=== PATIENT | male | born 1945 | race Caucasian/White ===

== ENCOUNTER 2019-02-23 11:59 | Outpatient (REF) | payer MEDICARE, BC, SELFPAY ==
[2019-02-23 13:14] LABS: ALT 39 U/L (12-78); AST 30 U/L (15-37); Albumin 3.6 g/dL (3.4-5.0); Alkaline Phosphatase 100 U/L (46-116); Anion Gap 8.9 mmol/L (3-11); BUN 17 mg/dL (7-18); Bilirubin, Total 1.2 mg/dL (0.2-1.0); CO2 29.1 mmol/L (21.0-32.0); Calcium 9.4 mg/dL (8.5-10.1); Chloride 102 mmol/L (98-107); Cholesterol 163 mg/dL (50-200); Glucose 76 mg/dL (70-100); HDL Cholesterol 46 mg/dL (40-60); LDL CHOLESTEROL 99 mg/dL (<100); Potassium 3.6 mmol/L (3.5-5.1); Sodium 140 mmol/L (136-145); Total Protein 6.8 g/dL (6.4-8.2); Triglyceride 102 mg/dL (30-150)
== END 2019-02-23 12:19 ==
LOC: NCHCN 11:59
PROVIDERS: Visit Provider Internal Medicine
DX: I10 Essential (primary) hypertension (principal); I35.1 Nonrheumatic aortic (valve) insufficiency; L98.9 Disorder of the skin and subcutaneous tissue, unspecified; J30.9 Allergic rhinitis, unspecified
CPT/HCPCS: 80053; 80061; 83721

== ENCOUNTER 2019-07-14 07:47 | Emergency (ER) | payer MEDICARE, BC, SELFPAY ==
[2019-07-14 07:51] VITALS: BP 166/74; PULSE 72; RESP 16; TEMP 36.4; O2SAT 100
--- NOTE | 2019-07-14 08:09 | DI.RAD_ITS ---
EXAM: XR CHEST 2V PA LATERAL INDICATION: pain s/p fall. COMPARISON: CHEST 2 VIEWS PA,LAT from 02/22/2018 TECHNIQUE: 2D digital imaging was performed. FINDINGS: The heart size is normal. The aorta is tortuous. There is again mild elevation of the right diaphra gm. No superimposed infiltrate, effusion or pulmonary edema is seen. No pneumothorax or gross rib f racture is identified. No thoracic compression fractures are seen. IMPRESSION: No acute abnormality.
[2019-07-14] MEDS: Acetaminophen 500 MG TAB 1000 MG PO (08:15)
--- NOTE | 2019-07-14 08:19 | W.ED.GENAD ---
Discharge Plan Disposition Patient Disposition: HOME Condition: Stable Discharge Details Chief Complaint: Trauma Clinical Impression: Fall, Blunt head trauma, Cervical strain, Contusion of rib Primary Care Provider: Luigi Schultz ED Provider: Kain Rodríguez Home Meds and New Rx's Prescriptions: Continued amlodipine [Norvasc] 2.5 MG tablet 5 mg PO DAILY RF: 0 losartan-hydrochlorothiazide [Hyzaar] 1 EACH tablet 1 tab-cap PO DAILY RF: 0 Discharge Instructions Instructions: Cervical Strain (ED) Additional Instructions: if you still have pain in a week see your primary care provider you can take 1000mg tylenol and 600mg ibuprofen every 6 hours for pain as needed if you have severe worsening pain or new pain such as abdominal pain or difficulty breathing return to the emergency department Medical Decision Making 74 yo male with hx of htn, denies blood thinners comes in after a fall. He states last night he was walking on his ramp leading to his barn. It was dark and he fell off about 6 feet. He denies loc and has not had vomit but has posterior head pain, right lateral mid neck pain and right lateral chest pain in mid axillary line over the 4-5 ribs. No abd pain and no tenderness, no pain in the extremities with full rom. No midline c spine pain, tspine or lspine pain. Suspect concussion but given mechanisma dn locations of pain will obtain ct head/cspine and cxr and monitor Pt's imaging negative, no midline neck pain and full rom so do not feel mri indicated. Will d/c home, return precautions given Differential Diagnosis Differential Diagnosis: tbi, concussion, fracture Imaging Data Radiologic Study: Attestation: I personally reviewed and interpreted this imaging study as follows: Imaging: CT Scan Radiologist's impression: no acute findings ct head/c spine Radiologic Study #2: Attestation: I personally reviewed and interpreted this imaging study as follows: Imaging: X-Ray Radiologist's impression: no acute findings HPI General Mode of arrival: ambulatory. Date/Time Provider Initiated Documentation: 07/14/19 08:02. Limitations to Documentation: no limitations. Information obtained by: patient. History of Present Illness 74 year old M presents to the emergency department with the chief complaint of headache, described as moderate, Quality is described as aching, and is localized to the head. Patient reports no radiation. Patient started experiencing this hour(s) (12) and it has been constant. No relieving factors improve symptom(s), No exacerbating factors reported . Patient did receive the following treatments prior to arrival, none Related Data Home Medications Medication Instructions Recorded Confirmed amlodipine [Norvasc] 5 mg PO DAILY tab-cap 03/07/13 07/14/19 losartan-hydrochlorothiazide 1 tab-cap PO DAILY tab-cap 03/07/13 07/14/19 [Hyzaar] Allergies Allergy/AdvReac Type Severity Reaction Status Date / Time grass Allergy Intermediate Uncoded 02/22/18 01:05 mold Allergy Unknown Uncoded 02/22/18 01:05 General Stated Complaint: Trauma CINTIA: 3 Review of Systems Review of Systems ROS Unobtainable: All systems reviewed & are unremarkable except as noted in HPI and below Constitutional Constitutional: Denies chills, Denies fever(s) and Denies weakness Cardiovascular Cardiovascular: Denies chest pain and Denies dyspnea Respiratory Respiratory: Denies dyspnea Gastrointestinal Gastrointestinal: Denies abdominal pain, Denies nausea and Denies vomiting Musculoskeletal Musculoskeletal: Denies joint swelling Neurologic Neurologic: Denies weakness [facility] Social History Smoking/Tobacco Use Status: Former Tobacco Use Alcohol Intake: current Alcohol type: wine Drug use: Never Substance use type: does not use Do you feel safe at home: Yes Do you feel safe in your relationship?: Yes Exam Const General: no acute distress Orientation: alert HENWA Head: normal to inspection Ears: external ears normal General nose exam: external nose normal Mouth: moist mucous membranes Eyes General: appearance normal, both eyes and all related structures Neck Neck: normal visual inspection Chest Chest: no crepitus Resp Effort & Inspection: normal respiratory effort and able to speak in complete sentences Cardio Rate: regular rate Skin General skin exam: no rashes or lesions noted Neuro General: alert and oriented x3 Extrem General: normal to inspection Psych Mental Status: mental status grossly normal Course Vital Signs Vital signs: Vital Signs Temperature 36.4 C L 07/14/19 07:51 Pulse 72 07/14/19 07:51 Respiratory Rate 16 07/14/19 07:51 Blood Pressure 166/74 H 07/14/19 07:51 Pulse Oximetry 100 07/14/19 07:51 Temperature 36.4 C L 07/14/19 07:51 Temperature Source Temporal Artery Scan 07/14/19 07:51 Pulse 72 07/14/19 07:51 Respiratory Rate 16 10/18/19 07:51 Respiratory Effort Non-Labored 07/14/19 07:51 Blood Pressure 166/74 H 07/14/19 07:51 Blood Pressure Position Supine 07/14/19 07:51 Pulse Oximetry 100 07/14/19 07:51 Oxygen Delivery Method Room Air 07/14/19 07:51 Oxygen Flow Rate 0 07/14/19 07:51 Pain Level 5 07/14/19 07:51 Comment 07/14/19 07:51
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
--- NOTE | 2019-07-14 09:10 | DI.VRAD_ITS ---
PROCEDURE INFORMATION: Exam: XR Chest, 2 Views Exam date and time: 07/14/2019 8:25 AM Clinical history: 74 years old, male; Other: Pain S/P fall TECHNIQUE: Imaging protocol: XR of the chest Views: 2 views. COMPARISON: CR CHEST 2 VIEWS PA,LAT 02/22/2018 1:18 AM FINDINGS: There is persistent eventration of the right hemidiaphragm. No airspace consolidation, pleural effusion or pneumothorax. Unremarkable cardiomediastinal silhouette. IMPRESSION: No acute findings. Dictated and Authenticated by: Jaron Carreon MD. Ordering:HARLEY Finnegan MD
--- NOTE | 2019-07-14 09:10 | DI.VRAD_ITS ---
PROCEDURE INFORMATION: Exam: CT Head Without Contrast Exam date and time: 07/14/2019 8:25 AM Clinical history: 74 years old, male; Pain and injury or trauma; Initial encounter; Blunt trauma (contusions or hematomas); Consciousness not specified; Headache not specified; Neck pain; Injury details: Fall/hit back of head TECHNIQUE: Imaging protocol: Computed tomography of the head without contrast. Radiation optimization: All CT scans at this facility use at least one of these dose optimization techniques: automated exposure control; mA and/or kV adjustment per patient size (includes targeted exams where dose is matched to clinical indication); or iterative reconstruction. COMPARISON: No relevant prior studies available. FINDINGS: There are periventricular white matter lucencies compatible with chronic microvascular ischemic disease. There is no intracranial hemorrhage. No mass effect or midline shift. The ventricles and sulci are prominent compatible with age-related involutional changes. The calvarium is intact. There is bifrontal, bilateral ethmoid and left maxillary sinusitis. No mastoid effusion. IMPRESSION: No acute intracranial findings. PROCEDURE INFORMATION: Exam: CT Cervical Spine Without Contrast Exam date and time: 07/14/2019 8:25 AM Clinical history: 74 years old, male; Pain and injury or trauma; Initial encounter; Blunt trauma (contusions or hematomas); Consciousness not specified; Headache not specified; Neck pain; Injury details: Fall/hit back of head TECHNIQUE: Imaging protocol: Computed tomography images of the cervical spine without contrast. Radiation optimization: All CT scans at this facility use at least one of these dose optimization techniques: automated exposure control; mA and/or kV adjustment per patient size (includes targeted exams where dose is matched to clinical indication); or iterative reconstruction. COMPARISON: No relevant prior studies available. FINDINGS: Normal alignment. No acute fracture or subluxation. There is multilevel degenerative disease with bridging anterior osteophytes and facet arthritis bilaterally. Normal prevertebral soft tissues. IMPRESSION: No fracture. Cervical spondylosis as above. Dictated and Authenticated by: Jaron Carreon MD. Ordering:HARLEY Finnegan MD
== END 2019-07-14 09:26 | disposition home or self-care (01) ==
LOC: ER 08:52
PROVIDERS: Emergency Provider Emergency Medicine; PCP Internal Medicine
DX: S09.90XA Unspecified injury of head, initial encounter (principal); S20.211A Contusion of right front wall of thorax, initial encounter; S13.4XXA Sprain of ligaments of cervical spine, initial encounter; W01.0XXA Fall on same level from slipping, tripping and stumbling without subsequent striking against object, initial encounter; I10 Essential (primary) hypertension; Z79.01 Long term (current) use of anticoagulants
CPT/HCPCS: 99285; 70450; 71046; 72125; 99284

== ENCOUNTER 2019-12-05 17:02 | Emergency (ER) | payer MEDICARE, BC, SELFPAY ==
[2019-12-05 17:12] VITALS: BP 158/70; PULSE 71; RESP 16; TEMP 36.6; O2SAT 97
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
--- NOTE | 2019-12-05 17:23 | ED.GENADUL_ITS ---
Discharge Plan Disposition Patient Disposition: [facility] Condition: Stable Discharge Details Chief Complaint: Trauma Clinical Impression: Cervical spine fracture, Trauma Primary Care Provider: Luigi Schultz ED Provider: Marciano Olivo Home Meds and New Rx's Prescriptions: No Action amlodipine [Norvasc] 2.5 MG tablet 5 mg PO DAILY RF: 0 losartan-hydrochlorothiazide [Hyzaar] 1 EACH tablet 1 tab-cap PO DAILY RF: 0 Medical Decision Making This is a 74-year-old male with past medical history of tobacco abuse in the past, who presents today after being hit by a garage door. Patient states that he was working in his garage when his tractor turned on and started moving backwards, knocked garage door off of the hinges, which then subsequently came down and hit him in the face, chest and right elbow. He did not lose consciousness but he was notably dizzy. He was able to get up but did have some mild difficulty walking. He came to the ER for further evaluation. Right now he does admit to minimal anterior chest pain where he was struck, as well as mild facial pain, head pain and neck pain. His elbow is also achy. His tetanus is up-to-date. He denies any associated numbness tingling or weakness. He denies any vision changes. No other complaints at this time. Physical exam demonstrates mild swelling over the right elbow, he is right-hand dominant. Minimal lateral epicondyle tenderness. He also has minimal midline cervical spine tenderness over C2, no other significant abnormality though. Chest wall is minimally tender, no neurologic deficits. This time due to the patient's age, the mechanism I do feel that CT scan of the head neck, chest x-ray right elbow x-ray is indicated. The patient is requesting to hold off on any sutures, the laceration is superficial, will start with glue after cleaning. Tetanus is up-to-date. With no weakness with raising his arms, with no numbness or tingling for his upper extremities, I doubt central cord syndrome. [address] scan results have returned, and per virtual radiology there is concerning evidence of a bilateral acute appearing transversely oriented nondisplaced fracture involving the superior articular processes of C7, it is nondisplaced at this time there is also widening of the C6-C7 disc space with discontinuity of the peripheral syndesmophyte, with evidence of local paraspinous edema at that level, concerning for notable extension injury. There is also evidence of a notable intramuscular hematoma total volume with 35 mL's which appears to be new as well. Repeat neurologic exam continues to show no deficits. With these findings the patient was continued to be maintained in c-collar precautions. He was placed in an Kirwin collar for comfort. He is still requesting nothing for pain. We did contact [facility] and discussed the case with the trauma attending Dr. Sampson, he agrees with the need for transfer. He recommends ED to ED transfer where the patient will be seen and evaluated in the ED. He also does admit recommend getting CT angios the neck, which we will get immediately while waiting for transfer. Patient continues to refuse anything for pain. We will facilitate transfer to [facility]. Also of note the patient's left hand superficial laceration was cleaned, irrigated, no evidence of deep tissue involvement. The area was then Steri-Stripped and Dermabond did. Excellent wound edge reapproximation was achieved. 7:47 PM CTA has been completed, pending results, patient will be transferred to [facility] for further management. I have extensively reviewed the treatment plan with the patient. I have addressed all patient concerns at this time. I have also discussed the plan with the admitting physician and they agree with the current assessment and plan and have agreed to assume responsibility for the patient. All parties demonstrate verbal understanding and agreement with our assessment and plan at this time. At time of transfer the patient was reassessed and continued to demonstrate current medical stability. No signs of acute respiratory distress requiring intubation, hemodynamic instability requiring pressor support, or rapidly declining mental status. The patient is stable for transport. FINDINGS: Bones/joints: There is a 3 mm calcification in the central joint space between the radiocapitellar joint and ulnotrochlear joint, best seen on the AP view, suspicious for a small intra- articular loose body. Moderate olecranon spurring at the triceps attachment. No fractures. No blastic or lytic lesions. No periostitis or osteolysis. Radiocapitellar alignment and ulnotrochlear alignment are normal. Proximal radioulnar alignment is normal. No gross joint effusion. Soft tissues: 5 mm well corticated rounded calcification at the lateral epicondyle is felt to be consistent with an incidental chronic posttraumatic or heterotopic ossification. No gross soft tissue abnormalities. No radiopaque foreign bodies FINDINGS: Lungs: Low lung volumes. Pulmonary vasculature grossly normal. No infiltrates. No areas of suspected pulmonary contusion. Pleural space: No pleural effusion. No pneumothorax. Heart/Mediastinum: Heart size normal. No tracheal/mediastinal shift. Diaphragm: Mild chronic elevation of the right hemidiaphragm unchanged. Vasculature: Moderate aortic ectasia. Bones/joints: No acute osseous abnormalities are identified. Osteopenia. IMPRESSION: No acute thoracic process. No significant change from 07/14/2019. Thank you for allowing us to participate in the care of your patient. Dictated and Authenticated by: Yusuf Meredith MD 12/05/2019 6:16 PM Eastern Time ([place] & [place]) FINDINGS: Brain: Mild generalized atrophy with minimal periventricular white matter ischemic changes consistent with the patient's advanced age. No extra-axial fluid collections. No evidence of acute intracranial hemorrhage. Rizvi-white differentiation is well maintained. No evidence of acute or subacute intracranial ischemia/infarct. No intracranial mass lesions. Midline shift: No midline shift or herniation. Ventricles: Ventricles normal. Bones/joints: The calvarium and visualized facial bones are intact. Chronic healed fracture of the right zygomatic arch unchanged. Sinuses: Mucosal thickening in the frontal sinuses, anterior ethmoid air cells, and left maxillary sinus, with fluid levels in the left maxillary sinus and right frontal sinus, suggesting acute on chronic sinus inflammatory disease. No sinus fractures are identified.. Mastoid air cells: Visualized mastoid air cells are clear. Orbits: Orbital contents demonstrate no evidence of acute abnormality. Soft tissues: Left frontal scalp soft tissue swelling, with no underlying fracture or foreign body. Vasculature: Mild atherosclerotic calcific plaque is identified in the visualized proximal intracranial arterial segments.No asymmetric vascular hyperdensities suggestive of thrombosis are identified. Other findings: The IACs are grossly normal. The sella is grossly normal. IMPRESSION: 1. No acute intracranial process. No significant change from 07/14/2019. 2. Mild generalized atrophy consistent with age. 3. Evidence of acute on chronic sinus inflammatory disease. 4. Left frontal scalp soft tissue swelling, with no underlying fracture or foreign body. 5. Old healed right zygomatic arch fracture unchanged in appearance. FINDINGS: Vertebrae: Craniocervical alignment is normal. The odontoid is intact. Cervical vertebral alignment is normal. Transversely oriented nondisplaced acute fractures are noted extending through the ankylosed facet joint distributions bilaterally at the C6-C7 level, best appreciated on the sagittal reconstructions, primarily involving the superior articular processes of C7. No vertebral body fracture components are identified. No evidence of associated epidural hematoma. No blastic or lytic lesions. Discs/Spinal canal/Neural foramina: The occipital condyles are intact. Moderate degenerative sclerosis and spurring at the atlantodens interval. No jumped or perched facets. There is extensive facet ankylosis bilaterally from C4 to T1. Moderate bilateral degenerative facet hypertrophy at C2-C3 and C3-C4. There are associated anterior syndesmophytes from C4 through C6 which appear intact. The findings could relate to underlying chronic ankylosing spondylitis, clinical correlation recommended. There is mild widening of the C6-C7 disc space with discontinuity of the anterior syndesmophyte and lateral syndesmophyte margins, which may be acutely fractured. 4 mm left paracentral soft disc protrusion at C3-C4. Moderate central canal stenosis C3-C4 with AP thecal sac dimension of 7.1 mm. Moderate central canal stenosis at C4-C5 and C5-C6 with AP thecal sac dimension of 7.6 mm and 7.1 mm. Mild central canal stenosis C6-C7, 8 mm. Mild left foraminal stenosis C5-C6 and T1-T2. Mild right foraminal stenosis T1-T2 and C3-C4. Other bones/joints: Osteopenia. Soft tissues: Asymmetric enlargement of the right-sided scalene musculature suggesting an element of muscular tear and intramuscular hematoma development. This is best appreciat ed on axial series 5, image 324 were the scaling musculature measures about 4.4 x 2.8 cm (previously 2.8 x 1.2 cm on 07/14/2019) by about 5.4 cm in length. No evidence of associated airway compromise. Estimated volume 35 mL. Thyroid: 8 mm low-density nodule in the right thyroid gland. This is unchanged. No further imaging evaluation is required. Lungs: Visualized pulmonary apices are clear. IMPRESSION: 1. There are bilateral acute appearing transversely oriented nondisplaced fractures involving the superior articular processes of C7 at the C6-C7 level. These are nondisplaced. 2. There is mild widening of the adjacent C6-C7 disc space with discontinuity of the peripheral syndesmophytes at the margin of the disc, concerning for extension of the injury through the C6-C7 disc space, with a mild degree of local paraspinous edema at this level. 3. There is extensive ankylosis in the facet joints of the cervical spine as detailed above, with numerous bridging syndesmophytes between the disc spaces in the mid cervical region, suspicious for underlying ankylosing spondylitis. 4. Heterogeneous enlargement of the right-sided scalene musculature which is new since 07/14/2019 and is felt to represent acute traumatic muscular injury with elements of intramuscular hematoma, estimated volume 35 mL. No evidence of associated airway compromise. 5. Osteopenia. 6. 4 mm left paracentral soft disc protrusion at C3-C4 with moderate central canal stenosis at this level. 7. Lesser degrees of central canal stenosis and multiple levels of bilateral mild foraminal stenosis at other levels detailed above. 8. THIS REPORT CONTAINS FINDINGS THAT MAY BE CRITICAL TO PATIENT CARE. The findings were verbally communicated via telephone conference with MARCIANO OLIVO at 6:37 PM EDT on 12/05/2019. The findings were acknowledged and understood. Thank you for allowing us to participate in the care of your patient. Dictated and Authenticated by: Yusuf Meredith MD 12/05/2019 6:38 PM Eastern Time ([place] & [place]) HPI General Date/Time Provider Initiated Documentation: 12/05/19 17:07 . HPI Narrative: This is a 74-year-old male with past medical history of tobacco abuse in the past, who presents today after being hit by a garage door. Patient states that he was working in his garage when his tractor turned on and started moving backwards, knocked garage door off of the hinges, which then subsequently came down and hit him in the face, chest and right elbow. He did not lose consciousness but he was notably dizzy. He was able to get up but did have some mild difficulty walking. He came to the ER for further evaluation. Right now he does admit to minimal anterior chest pain where he was struck, as well as mild facial pain, head pain and neck pain. His elbow is also achy. His tetanus is up-to-date. He denies any associated numbness tingling or weakness. He d enies any vision changes. No other complaints at this time. Related Data Home Medications Medication Instructions Recorded Confirmed amlodipine [Norvasc] 5 mg PO DAILY tab-cap 03/07/13 07/14/19 losartan-hydrochlorothiazide 1 tab-cap PO DAILY tab-cap 03/07/13 07/14/19 [Hyzaar] Allergies Allergy/AdvReac Type Severity Reaction Status Date / Time grass Allergy Intermediate Uncoded 02/22/18 01:05 mold Allergy Unknown Uncoded 02/22/18 01:05 General Stated Complaint: Trauma CINTIA: 3 Review of Systems All systems reviewed & are unremarkable except as noted in HPI and below PFSH Social History Smoking/Tobacco Use Status: Former Tobacco Use Alcohol Intake: current Alcohol type: wine Drug use: Never Substance use type: does not use Do you feel safe at home: Yes Do you feel safe in your relationship?: Yes Exam Narrative Exam Narrative: 1.Const: Well-nourished, Well-developed, appearing stated age 2.Eyes: PERRL, no conjunctival injection, and symmetrical lids. 3.ENT: Atraumatic external nose and ears. Moist MM. Neck: Symmetric, trachea midline, No thyromegaly. There is no evidence of raccoon eyes, meza sign, CSF rhinorrhea, mastoid tenderness, cranial crepitus, hemotympanum, exophthalmos, or hyphema. Patient demonstrates intact dentition with no signs of tooth avulsion or fracture, no signs of jaw deformity, no evidence of a LeFort's fracture, with an intact palate, nose and orbital region. There is no evidence of a nasal septal hematoma. No proptosis. Jaw closes symmetrically. Airway is clear. Mild contusion to the right frontal forehead, no evidence of deficit. 4.CVS: Regular rate and rhythm, Normal s1 and s2. No murmurs, carotid bruits, rubs, or gallops. Radial pulses 2+ bilaterally and symmetric. Dorsalis pedis pulses 2+ bilaterally and symmetric. 2+ capillary refill. No evidence of distant heart sounds. No extremity edema. No evidence of gross hemorrhage. 5.RESP: Airway clear, no obstructions. No abrasions or ecchymosis. Chest movement symmetric with respirations. No chest wall tenderness. Trachea midline. No crepitus. No step offs. No paradoxical movements. Lungs are clear to auscultation bilaterally. No rales, rhonchi, wheezing or stridor. Breath sound symmetric. No Sucking chest wounds. No clinical evidence of significant chest trauma. 6.GI: Soft, nondistended, nontender. Bowel tones normoactive. No masses or organomegaly. No ecchymosis or abrasions. No periumbilical ecchymosis or seatbelt sign. No flank or CVA tenderness. No clinical signs of significant trauma. No clinical evidence of significant abdominal trauma. 7.MSK: No gross deformities or discolorations or lesions. Tolerates full range of motion of extremities without tenderness. All compartments of upper and lower extremities are soft with no significant tenderness. Patient does have mild swelling over the right elbow. Minimal tenderness on the lateral epicondyle. Vascular exam demonstrates brisk capillary refill and intact pulses in all extremities. Pelvic exam demonstrates a stable pelvis, nontender to lateral compression and palpation of symphysis pubis.. No clinical evidence of significant musculoskeletal trauma. No midline tenderness to palpation over the TLS spine. He does demonstrate mild midline cervical spine tenderness at C2. Normal ROM in flexion, extension, side bend, and rotation for the remainder of the spine. Patient has +5 out of 5 strength in the lower extremities in dorsiflexion and plantarflexion, knee flexion and extension, hip flexion and extension. Normal strength for dorsiflexion and plantar flexion of the great toe bilaterally. There is +2 over 2 dorsalis pedis pulses bilaterally. There is normal sensation to the skin with light touch at the foot, knee, and hip. Normal saddle sensation. Good sensation over the deep sural nerve area bilaterally. Rectal exam deferred. Reflexes are +2 over 4 in the patellar reflex bilaterally. +5 out of 5 strength in the medial, ulnar, radial nerve distribution bilaterally in the hands as well as intact light touch sensation to these dermatomes on the hands 8.Skin: Warm, Dry. No rashes or lesions. Patient does demonstrate a very small minimal superficial laceration over the middle finger on the left nondominant hand. No evidence of deep involvement or involvement of the tendons or ligaments. Normal sensation throughout. 9.Neuro: clearing supervisor II-XII grossly intact. Sensation grossly intact, no focal neurologic deficits. All 6 cardinal planes of vision are fully intact. No evidence of rotatory or vertical nystagmus. The patient demonstrated a normal [id number], good dexterity. There was no evidence of dysdiadochokinesia. Patient was able to ambulate without difficulty. There was no wide-based gait. Romberg testing was normal. [id number] testing was normal. Sensation was intact bilaterally as well as muscle strength bilaterally for all extremities. Patient was able to verbalize butter cup with no slurring, or miss pronunciation. 10.Psych: (AAO) x3. Appropriate mood and affect Course Vital Signs Vital signs: Vital Signs Temperature 36.6 C 12/05/19 17:12 Pulse 71 12/05/19 17:12 Respiratory Rate 16 12/05/19 17:12 Blood Pressure 158/70 H 12/05/19 17:12 Pulse Oximetry 97 12/05/19 17:12 Temperature 36.6 C 12/05/19 17:12 Temperature Source Tympanic 12/05/19 17:12 Pulse 71 12/05/19 17:12 Respiratory Rate 16 12/05/19 17:12 Respiratory Effort Non-Labored 12/05/19 17:17 Blood Pressure 158/70 H 12/05/19 17:12 Blood Pressure Position Sitting 12/05/19 17:12 Pulse Oximetry 97 12/05/19 17:12 Oxygen Delivery Method Room Air 12/05/19 17:12 Oxygen Flow Rate 0 12/05/19 17:12
[2019-12-05 17:36] VITALS: BP 151/71; PULSE 69
--- NOTE | 2019-12-05 18:16 | DI.VRAD_ITS ---
PROCEDURE INFORMATION: Exam: XR Chest, 2 Views Exam date and time: 12/05/2019 5:55 PM Age: 74 years old Clinical indication: Injury or trauma; Fall; Initial encounter; Blunt trauma (contusions or hematomas) TECHNIQUE: Imaging protocol: XR of the chest Views: 2 views. COMPARISON: CR XR CHEST 2V PA LATERAL 07/14/2019 8:21 AM FINDINGS: Lungs: Low lung volumes. Pulmonary vasculature grossly normal. No infiltrates. No areas of suspected pulmonary contusion. Pleural space: No pleural effusion. No pneumothorax. Heart/Mediastinum: Heart size normal. No tracheal/mediastinal shift. Diaphragm: Mild chronic elevation of the right hemidiaphragm unchanged. Vasculature: Moderate aortic ectasia. Bones/joints: No acute osseous abnormalities are identified. Osteopenia. IMPRESSION: No acute thoracic process. No significant change from 07/14/2019. Dictated and Authenticated by: Yusuf Meredith MD. Ordering:JENNIFER Tariq MD
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
--- NOTE | 2019-12-05 18:41 | DI.VRAD_ITS ---
PROCEDURE INFORMATION: Exam: XR Right Elbow Exam date and time: 12/05/2019 5:59 PM Age: 74 years old Clinical indication: Injury or trauma; Fall; Initial encounter; Blunt trauma (contusions or hematomas; Elbow; Right TECHNIQUE: Imaging protocol: XR Right elbow. Views: 3 or more views. COMPARISON: No relevant prior studies available. FINDINGS: Bones/joints: There is a 3 mm calcification in the central joint space between the radiocapitellar joint and ulnotrochlear joint, best seen on the AP view, suspicious for a small intra-articular loose body. Moderate olecranon spurring at the triceps attachment. No fractures. No blastic or lytic lesions. No periostitis or osteolysis. Radiocapitellar alignment and ulnotrochlear alignment are normal. Proximal radioulnar alignment is normal. No gross joint effusion. Soft tissues: 5 mm well corticated rounded calcification at the lateral epicondyle is felt to be consistent with an incidental chronic posttraumatic or heterotopic ossification. No gross soft tissue abnormalities. No radiopaque foreign bodies. IMPRESSION: 1. No evidence of acute fracture or dislocation. 2. 3 mm suspected intra-articular calcific body as detailed above. 3. Moderate olecranon spurring. Small chronic appearing degenerative or posttraumatic calcification at the lateral epicondyle. Dictated and Authenticated by: Yusuf Meredith MD. Ordering:JENNIFER Tariq MD
--- NOTE | 2019-12-05 18:59 | DI.CT_ITS ---
EXAM: CT BRAIN NECK CTA CLINICAL HISTORY: eval for vascular injury TECHNIQUE: Imaging Protocol: Axial computed tomography images with coronal and sagittal reformatted images were created and reviewed IV contrast during the arterial phase. COMPARISON: No exams were available for comparison FINDINGS: There is mild calcific plaque in the right common carotid bulb, no significant stenosis. The right internal carotid artery is tortuous. Near the skull base, there is dilatation of the distal right in ternal carotid artery in an area of tortuosity. Right external carotid artery is unremarkable. The left common carotid artery is unremarkable. The left internal carotid artery shows mild calcific ahsan que without significant stenosis. The external carotid artery is unremarkable on the left. Both kenneth tebral arteries show normal diameter with no evidence of dissection or occlusion. There is some enlar gement of the right scalene muscle which may represent a hematoma. There is no evidence of active ex travasation. No pneumothorax is seen at the lung apices. The intracranial vessels appear intact. No dissection or significant stenosis is seen. No aneurysm is visible. There is a normal variant of a hypoplastic right A1 segment. IMPRESSION: No evidence of vascular injury. Right scalene muscle contusion.
[2019-12-05 19:14] VITALS: O2SAT 99
[2019-12-05 19:16] VITALS: BP 176/70; PULSE 75; O2SAT 96
[2019-12-05 19:17] LABS: Abs Immature Grans 0.03 k/cumm (0.0-0.09); Absolute Basophil Count 0.03 k/cumm (0.0-0.2); Absolute Eosinophil Count 0.04 k/cumm (0.0-0.7); Absolute Lymphocyte Count 1.41 k/cumm (1.2-3.4); Absolute Monocyte Count 0.81 k/cumm (0.11-0.7); Absolute Neutrophil Count 11.91 k/cumm (1.2-6.7); Basophils % 0.2; Eosinophils % 0.3; HCT 43.7 % (40.0-50.0); HGB 14.9 g/dL (13.5-17.5); Immature Grans % 0.2 %; Lymphocytes % 9.9; Mean Corp. HGB Concentration 34.1 g/dL (32.0-36.0); Mean Corpuscular Hemoglobin 31.3 pg (27.0-33.0); Mean Corpuscular Volume 91.8 fL (80-95); Monocytes % 5.7; Neutrophils % 83.7; Platelet Count 267 x1000/uL (130-400); RBC 4.76 m/cumm (4.50-6.00); RBC Distribution Width 13.5 % (11.8-14.1); White Blood Cell Count 14.23 k/cumm (4.4-10.8)
[2019-12-05 19:20] VITALS: O2SAT 95
--- NOTE | 2019-12-05 19:28 | NUR.NOTE ---
Nursing Note: At 1900 a cervical aspen collar was applied to PT per MD request.
--- NOTE | 2019-12-05 19:29 | NUR.NOTE ---
Nursing Note: RN escorted PT to CT to maintain C-spine precautions.
--- NOTE | 2019-12-05 19:29 | NUR.NOTE ---
Addendum entered by Mike Hull 12/05/19 19:31: at 1900, PT taken to CT with RN for c-spine precautions. Original Note: Nursing Note:
[2019-12-05 19:34] LABS: ALT 31 U/L (16-63); AST 29 U/L (15-37); Albumin 3.9 g/dL (3.4-5.0); Alkaline Phosphatase 126 U/L (46-116); Anion Gap 9.4 mmol/L (3-11); BUN 14 mg/dL (7-18); Bilirubin, Total 0.7 mg/dL (0.2-1.0); CO2 29.6 mmol/L (21.0-32.0); CREATININE 0.79 mg/dL (0.70-1.30); Calcium 9.2 mg/dL (8.5-10.1); Chloride 103 mmol/L (98-107); Glucose 119 mg/dL (74-106); Potassium 3.3 mmol/L (3.5-5.1); Sodium 142 mmol/L (136-145); Total Protein 7.4 g/dL (6.4-8.2)
[2019-12-05] MEDS: Omnipaque 350 MG/ML 100 ML BTL IV (19:43)
[2019-12-05] MEDS: Normal Saline - Diluent 50 ML VIAL IV (19:44)
--- NOTE | 2019-12-05 20:02 | NUR.NOTE ---
Nursing Note: PT care report transferred to Lori (ABEL) at [facility]. All Pt care information, treatments, and information was transferred at this time.
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
== END 2019-12-05 20:10 | disposition short-term general hospital (02) ==
PROVIDERS: Emergency Provider Student in an Organized Health Care Education/Training Program; PCP Internal Medicine
DX: S12.691A Other nondisplaced fracture of seventh cervical vertebra, initial encounter for closed fracture (principal); S61.412A Laceration without foreign body of left hand, initial encounter; M25.521 Pain in right elbow; S00.83XA Contusion of other part of head, initial encounter; R07.81 Pleurodynia; R26.2 Difficulty in walking, not elsewhere classified; W30.9XXA Contact with unspecified agricultural machinery, initial encounter; W20.8XXA Other cause of strike by thrown, projected or falling object, initial encounter
CPT/HCPCS: 12001; 36415; 70496; 70498; 80053; 99285; L0172; 70450; 71046; 72125; 73080; 85025; J3490

== ENCOUNTER 2019-12-26 03:34 | Outpatient (CLI) | payer MEDICARE, BC, SELFPAY ==
--- NOTE | 2019-12-26 | DI.RAD_ITS ---
EXAM: XR CERVICAL SP PORTILLO TRAUMA 2-3V CLINICAL HISTORY: CLOSED DISPLACED FX SEVENTH CERVICAL VERTEBRA,S12.600A,S/P C6-7 ACDF FOR FX TECHNIQUE: 2D digital imaging was performed. COMPARISON: CT HEAD CERVICAL SPINE WO from 12/05/2019 FINDINGS: The patient is now status post anterior fusion C6-7 with a disc spacer in place. The alignment appe ars anatomic. There is artifact related to the neck immobilizer. The fracture seen on CT are not vi sible by plain film. No new abnormalities are seen. IMPRESSION: Status post anterior fusion at C6-7. Normal alignment.
== END 2019-12-26 03:54 ==
PROVIDERS: PCP Internal Medicine; Visit Provider Neurological Surgery
DX: Z98.1 Arthrodesis status (principal); S12.691D Other nondisplaced fracture of seventh cervical vertebra, subsequent encounter for fracture with routine healing
CPT/HCPCS: 72040

== ENCOUNTER 2020-02-16 02:01 | Outpatient (CLI) | payer MEDICARE, BC, SELFPAY ==
--- NOTE | 2020-02-16 | DI.RAD_ITS ---
EXAM: XR CERVICAL SP PORTILLO TRAUMA 2-3V CLINICAL HISTORY: CLOSED DISPLACED FRACTURE 7TH CERVICAL VERTEBRA, S/P C6-7 ACDF. TECHNIQUE: 2D digital imaging was performed. COMPARISON: CT CT HEAD CERVICAL SPINE WO from 12/05/[address] BRAIN NECK CTA from 12/05/2019 CR XR CERVICAL SP PORTILLO TRAUMA 2-3V from 12/26/2019 FINDINGS: There are surgical changes of an anterior cervical disc fusion at C6-C7 which appear stable. The odo ntoid is intact. The lateral masses are well aligned. There is artifact from the patient's immobili zer limiting evaluation of the examination. No new abnormality is identified. The C7 fracture has b est been appreciated on the CT scan. IMPRESSION: 1. Status post C6-C7 ACDF. 2. No acute abnormality. DATA REPOSITORY: RADIATION DOSE DELIVERED:
== END 2020-02-16 02:21 ==
PROVIDERS: PCP Internal Medicine; Visit Provider Neurological Surgery
DX: S12.691D Other nondisplaced fracture of seventh cervical vertebra, subsequent encounter for fracture with routine healing (principal); Z98.1 Arthrodesis status
CPT/HCPCS: 72040

== ENCOUNTER 2020-04-07 19:02 | Emergency (ER) | payer MEDICARE, BC, SELFPAY ==
[2020-04-07 19:13] VITALS: BP 179/90; PULSE 77; RESP 18; TEMP 37; O2SAT 97
--- NOTE | 2020-04-07 19:30 | DI.CT_ITS ---
EXAM: CT CERVICAL SPINE WO CLINICAL HISTORY: h/o c6-7 fx/fusion; s/p muscle strain. TECHNIQUE: Imaging Protocol: Axial computed tomography images with coronal and sagittal reformatted images were created and reviewed COMPARISON: CT CT BRAIN NECK CTA from 12/05/2019 FINDINGS: The odontoid is intact. The lateral masses are well aligned. No acute fracture or subluxation in th e cervical spine is seen. There is anterior cervical disc fusion at C6-C7. Moderately severe degene rative changes are present throughout the cervical spine. The prevertebral soft tissues are unremark able. The lung apices are clear. IMPRESSION: No acute fractures or subluxations of the cervical spine. RADIATION DOSE DELIVERED: Total DLP Total DLP DATA REPOSITORY: All CT scans at this facility are submitted to the National Radiology Data Registry (NRDR) Dose Index Registry (DIR) with the [employer] ([employer]). RADIATION OPTIMIZATION: All CT scans at this facility use at least one of these dose optimization te chniques: automated exposure control; mA and/or kV adjustment per patient size (includes targeted exa ms where dose is matched to clinical indication); or iterative reconstruction.
--- NOTE | 2020-04-07 19:39 | W.ED.GENAD ---
Discharge Plan Disposition Patient Disposition: HOME Condition: Good Discharge Details Chief Complaint: Nk/Back Pain Clinical Impression: Neck pain, History of fusion of cervical spine, Thyroid nodule Primary Care Provider: Luigi Schultz ED Provider: Marciano Aldrich Home Meds and New Rx's Prescriptions: Continued amlodipine [Norvasc] 2.5 MG tablet 5 mg PO DAILY RF: 0 losartan-hydrochlorothiazide [Hyzaar] 1 EACH tablet 1 tab-cap PO DAILY RF: 0 Discharge Instructions Instructions: Neck Pain (ED) Additional Instructions: At this time we are thankful to say that the radiologist sees no evidence whatsoever of acute fracture of your cervical spine. With resolution of your symptoms, and no neurologic abnormalities on exam it is notably reassuring that there is not any acute damage that has occurred. I do suspect that you have a mild muscle spasm that was initially causing your pain which is resolved at this time. Please use ice if needed, please maintain use of your neck brace as indicated by your environmental health specialist. Please contact her spine surgeons at [facility] and let them know of your visit. We will switch the radiology images down to them. If you notice any worsening of your symptoms, or any new symptoms such as vomiting, diarrhea, fever, chills, shortness of breath, chest pain, numbness, weakness, or fainting , please return immediately to the emergency department for reevaluation. Please follow up with your primary care provider as soon as possible for reassessment and reevaluation. As always, it was a pleasure participating in your medical care today. Also of note you do have the small thyroid nodule that we discussed. This does not require any emergent follow-up at all. But is something that you should be aware of for the future. Referrals: Luigi Schultz MD [Primary Care Provider] - Medical Decision Making <Xena Walker DO - Last Filed: 04/07/20 20:50> 1922 -- 75-year-old male with a history of C6-7 ACDF for his C6?SAP fracture, disruption of a LL, 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 on 12/05/2019 at [facility] presents for burning posterior neck pain after both of his arms pulled by his dog while holding a leash last night. Denies any radiation of pain or paresthesias into his upper extremities. BP hypertensive. Patient appears nontoxic. He presents in a [place] collar which he wears chronically since his injury and surgery, and only removes for showering. His neck is nontender to palpation. He has no focal deficits. He is neurovascular intact. Will obtain CT cervical spine to assess hardware and rule out any acute injury. 1999 -- Case endorsed to Dr. Aldrich to follow-up on CT imaging and possibly with [facility] for recommendations. Medical Records Medical records reviewed: Yes I reviewed the patient's medical records. <Marciano Aldrich, DO - Last Filed: 04/07/20 21:08> Patient was seen and assessed by Dr. Walker. Please refer to her HPI, assessment and plan physical exam. Plan at this point was follow-up on CT scan to rule out acute fracture. CT scan results and per virtual radiology there is no evidence of acute process or fracture. There is a small 11 mm hypodense nodule seen in the posterior substance of the right thyroid, radiology indicates no follow-up however we will copy this to the patient's PCP. On reassessment the patient feels very well. He states that his pain is completely gone after medication. He feels no numbness tingling or weakness. Repeat neurologic exam demonstrates no cervical spine tenderness, no weakness in the upper extremities, normal sensation throughout, normal neurovascular exam of the upper extremities. Good two-point discrimination throughout. No axillary tingling or numbness. Did offer Lidoderm patch however the patient states that he is fine with the resolution of his pain and does not require any additional pain medications. No MRI is available at this time and currently I see no indication for emergent MRI evaluation with the lack of neurovascular symptoms. At this time patient is appropriate for discharge, however I do recommend close follow-up with his orthopedics and spine client resolution specialist at [facility]. I did discuss this with him and he will be contacting them on Wednesday. We do long discussion regarding pertinent red flags which to immediately return. I have extensively reviewed the treatment plan and discharge instructions with the patient. I have addressed all patient concerns at this time. The patient was made aware of what symptoms to monitor for that would warrant a return to the emergency department. Discussed the plan with the patient, they demonstrate verbal understanding and agreement with our assessment and plan at this time. IMPRESSION: 1. 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 No acute fractures are detected. 2. An 11 mm hypodense nodule is seen in the posterior substance of the right thyroid lobe and no follow-up is suggested for incidental thyroid nodules less than 1.5 cm in size for this patient group. (Reference: Tayler Duque, et al. (2015). Managing Incidental Thyroid Nodules Detected on Imaging: White Paper of the ACR Incidental Thyroid Findings Committee. Journal of the [place] [employer], 12(2), 143-150.) Thank you for allowing us to participate in the care of your patient. Dictated and Authenticated by: Alex Brewer MD HPI <Xena Walker, DO - Last Filed: 04/07/20 20:50> General Mode of arrival: ambulatory. Date/Time Provider Initiated Documentation: 04/07/20 19:22. Limitations to Documentation: no limitations. Information obtained by: patient. HPI Narrative: Patient is a 74-year-old male with a history of hypertension and C6-7 fracture with history of C6-7 ACDF for his C6?SAP fracture, disruption of ALL, 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 on 12/05/19 at [facility] who presents for neck pain after his dog pulled the leash she was holding last night. Patient states when he was initially diagnosed with his cervical fracture in November he had no pain at that time and has not had pain since then. He states since his dog pulled his leash which caused both of his arms to extend outward and flex at his shoulders he has had burning posterior neck pain with radiation into both of his shoulders. He denies any radiation of pain, numbness or tingling into his upper extremities. He denies any other injuries. He states he took ibuprofen this morning and Tylenol this evening without relief. He states he has strong reaction to narcotic pain medication so does not like to take them. Related Data Home Medications Medication Instructions Recorded Confirmed amlodipine [Norvasc] 5 mg PO DAILY tab-cap 03/07/13 04/07/20 losartan-hydrochlorothiazide 1 tab-cap PO DAILY tab-cap 03/07/13 04/07/20 [Hyzaar] Allergies Allergy/AdvReac Type Severity Reaction Status Date / Time grass Allergy Intermediate Uncoded 04/07/20 19:17 mold Allergy Unknown Uncoded 04/07/20 19:17 General Stated Complaint: Nk/Back Pain CINTIA: 3 Review of Systems <Xena Walker DO - Last Filed: 04/07/20 20:50> All systems reviewed & are unremarkable except as noted in HPI and below Constitutional Constitutional: Reports as per HPI, Denies chills and Denies fever(s) Eyes Eyes: Denies blurry vision ENT Ears, Nose, Mouth, and Throat: Denies dizziness, Reports neck pain, Denies sore throat and Denies throat swelling Cardiovascular Cardiovascular: Denies chest pain and Denies dyspnea Respiratory Respiratory: Denies cough and Denies dyspnea Gastrointestinal Gastrointestinal: Denies abdominal pain, Denies diarrhea and Denies vomiting Genitourinary Genitourinary: Denies hematuria and Denies dysuria Musculoskeletal Musculoskeletal: Denies back pain, Reports neck pain and Denies numbness Integumentary/Breasts Skin/Breast: Denies lesions and Denies rash Neurologic Neurologic: Denies dizziness, Denies localized weakness and Denies numbness Allergic/Immunologic Allergic/Immunologic: Denies throat swelling PFSH <Xena Walker DO - Last Filed: 04/07/20 20:50> Medical History (Updated 04/07/20 @ 21:05 by Marciano Aldrich DO) Cervical spine fracture (Acute) C6-7 HTN (hypertension) (Chronic) Surgical History (Updated 04/07/20 @ 20:50 by Xena Walker DO) History of fusion of cervical spine (Acute) C6-7 ACDF for C6-SAP fracture, disruption of ALL, 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 Social History Smoking/Tobacco Use Status: Former Tobacco Use Alcohol Intake: current Alcohol type: wine Drug use: Never Substance use type: does not use Do you feel safe at home: Yes Do you feel safe in your relationship?: Yes Exam <Xena Walker DO - Last Filed: 04/07/20 20:50> Const General: cooperative, healthy appearing and no acute distress HENMT Head: normal to inspection Face and sinus: normal facial exam Eyes General: appearance normal, both eyes and all related structures EOM: EOM intact bilaterally Neck Neck: normal visual inspection and No submandibular swelling Lymphatic: no lymphadenopathy noted Chest Chest: normal inspection of the chest and no tenderness Resp Effort & Inspection: normal respiratory effort and able to speak in complete sentences Auscultation: clear to auscultation bilaterally Cardio Rate: regular rate Rhythm: regular rhythm GI Inspection: normal to inspection Palpation: soft, not firm, not rigid and nontender Auscultation: normal bowel sounds Back/Spine/Pelvis Cervical Spine: collar present (vista collar), No cervical muscular tenderness and No cervical spinal tenderness Thoracic/Lumbar Spine: thoracic and lumbar spine normal to inspection, No paraspinal tenderness, No thoracic spinal tenderness and No lumbar spinal tenderness Pelvis: no pain with anterior-posterior compression Skin General skin exam: no rashes or lesions noted Neuro General: patient alert, patient awake and patient oriented x3 Cognition: normal cognition Speech: speech normal Motor: muscle tone normal throughout and strength 5/5 throughout Sensory Exam: no sensory deficits noted Extrem General: normal to inspection, full ROM, capillary refill normal, no calf tenderness bilaterally and no edema Other: Bilateral radial pulses intact Psych Appearance: grossly normal Mental Status: mental status grossly normal Speech and Movement: speech and movement normal Affect: normal affect Course <Xena Walker DO - Last Filed: 04/07/20 20:50> Vital Signs Vital signs: Vital Signs Temperature 98.6 F 04/07/20 19:13 Pulse 77 04/07/20 19:13 Respiratory Rate 18 04/07/20 19:13 Blood Pressure 179/90 H 04/07/20 19:13 Pulse Oximetry 97 04/07/20 19:13 Temperature 98.6 F 04/07/20 19:13 Temperature Source Skin 04/07/20 19:13 Pulse 77 04/07/20 19:13 Respiratory Rate 18 04/07/20 19:13 Respiratory Effort Non-Labored 04/07/20 19:16 Blood Pressure 179/90 H 04/07/20 19:13 Blood Pressure Position Sitting 04/07/20 19:13 Pulse Oximetry 97 04/07/20 19:13 Oxygen Delivery Method Room Air 04/07/20 19:13 Oxygen Flow Rate 0 04/07/20 19:13 Pain Level 6 04/07/20 19:17 Sign Out <Xena Walker DO - Last Filed: 04/07/20 20:50> Sign Out Data: Sign Out Comment: f/u on CT imaging and final disposition. Last updated by Xena Walker DO at 04/07/20 20:05
[2020-04-07] MEDS: diazePAM 5 MG TAB PO (19:44)
[2020-04-07] MEDS: Ketorolac 60 MG/2 ML VIAL IM (19:45)
--- NOTE | 2020-04-07 20:38 | DI.VRAD_ITS ---
PROCEDURE INFORMATION: Exam: CT Cervical Spine Without Contrast Exam date and time: 04/07/2020 7:38 PM Age: 75 years old Clinical indication: Other: H/o c6-c7, fx/ fusion, s/pmuscle strain; Prior surgery; Surgery date: 1-6 months; Surgery type: C6-c7 fusion 3.11.20 TECHNIQUE: Imaging protocol: Computed tomography images of the cervical spine without contrast. COMPARISON: No relevant prior studies available. FINDINGS: Vertebrae: The craniocervical and atlantoaxial articulations are preserved and the odontoid process appears grossly intact. Vertebral body height is intact throughout cervical levels with no acute fractures or significant subluxations detected. Postsurgical changes are identified related to previous anterior discectomy and interbody fusion at the C6-C7 level with plate and screw fixation seen in place anteriorly at this level. Changes of facet arthropathy are seen at multiple cervical levels. Discs/Spinal canal/Neural foramina: Posterior disc bulging at C3-C4 and posterior osteocartilaginous ridging at C5-C6 produce moderate canal stenosis and probable ventral cord flattening with no severe cord compression detected at any cervical level. There is severe right and moderate left foraminal narrowing at C3-C4 moderate left foraminal narrowing at C4-C5 and moderate bilateral foraminal narrowings at C5-C6 related to uncovertebral and facet changes Soft tissues: An 11 mm hypodense nodule is seen in the posterior substance of the right thyroid lobe. Lungs: No pneumothorax or consolidation detected at the lung apices. IMPRESSION: 1. 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 No acute fractures are detected. 2. An 11 mm hypodense nodule is seen in the posterior substance of the right thyroid lobe and no follow-up is suggested for incidental thyroid nodules less than 1.5 cm in size for this patient group. (Reference: Tayler Duque., et al. (2015). Managing Incidental Thyroid Nodules Detected on Imaging: White Paper of the ACR Incidental Thyroid Findings Committee. Journal of the [place] [employer], 12(2), 143-150.) Dictated and Authenticated by: Alex Brewer MD. Ordering:CYNTHIA Mccallum MD
[2020-04-07 21:15] VITALS: BP 142/70; PULSE 70; RESP 18; TEMP 37; O2SAT 97
== END 2020-04-07 21:18 | disposition home or self-care (01) ==
PROVIDERS: Emergency Provider Student in an Organized Health Care Education/Training Program; PCP Internal Medicine
DX: M54.2 Cervicalgia (principal); Z98.1 Arthrodesis status; R93.7 Abnormal findings on diagnostic imaging of other parts of musculoskeletal system; I10 Essential (primary) hypertension; Z87.81 Personal history of (healed) traumatic fracture
CPT/HCPCS: 96372; 99284; 72125; 99285; J1885

== ENCOUNTER 2020-08-13 12:04 | Outpatient (REF) | payer MEDICARE, BC, SELFPAY ==
[2020-08-13 21:18] LABS: TSH (W/Ref FT4) 1.19 uIU/mL (0.36-3.74)
== END 2020-08-13 12:24 ==
LOC: NCHCN 12:04
PROVIDERS: PCP Internal Medicine; Visit Provider Internal Medicine
DX: E04.1 Nontoxic single thyroid nodule (principal); I10 Essential (primary) hypertension; E87.6 Hypokalemia
CPT/HCPCS: 84132; 84443

== ENCOUNTER 2020-08-23 08:58 | Outpatient (REF) | payer MEDICARE, BC, SELFPAY ==
[2020-08-23 21:52] LABS: Potassium 3.8 mmol/L (3.5-5.1)
== END 2020-08-23 09:18 ==
LOC: NCHCN 08:58
PROVIDERS: PCP Internal Medicine; Visit Provider Internal Medicine
DX: E87.6 Hypokalemia (principal)
CPT/HCPCS: 84132

== ENCOUNTER 2020-08-26 00:50 | Outpatient (CLI) | payer MEDICARE, BC, SELFPAY ==
--- NOTE | 2020-08-26 | DI.RAD_ITS ---
EXAM: XR CERVICAL SP PORTILLO TRAUMA 2-3V CLINICAL HISTORY: S/P CERVICAL SPINAL FUSION,Z98.1,C 6-7 ACDF TECHNIQUE: COMPARISON: CR XR CERVICAL SP PORTILLO TRAUMA 2-3V from 02/16/2020 FINDINGS: Three views were obtained. There is vertebral fusion with plate and screw fixation anteriorly at C6- 7. There are vertebral endplate osteophytes with bridging osteophytes at C4-5 and C5-6. There is no evidence of acute fracture or dislocation. Prevertebral soft tissues appear intact. IMPRESSION: Stable appearance of anterior vertebral fusion at C6-7 since February 15. RADIATION DOSE DELIVERED: Total DLP Total DLP
== END 2020-08-26 01:10 ==
PROVIDERS: PCP Internal Medicine; Visit Provider Neurological Surgery
DX: Z98.1 Arthrodesis status (principal)
CPT/HCPCS: 72040

== ENCOUNTER 2020-12-26 01:42 | Outpatient (CLI) | payer MEDICARE, BC, SELFPAY ==
--- NOTE | 2020-12-26 08:33 | DI.RAD_ITS ---
EXAM: XR CERVICAL SP PORTILLO TRAUMA 2-3V CLINICAL HISTORY: F/U CLOSED DISPLACED FX,S12.600A,F/U ACDF ON 12/06/19. TECHNIQUE: 2D digital imaging was performed. COMPARISON: CR XR CERVICAL SP PORTILLO TRAUMA 2-3V from 08/26/2020 FINDINGS: Again noted is anterior fusion plate at C6-7 level which appears stable and there is an intervertebra l disc space device at this level again noted which is unchanged in position. There again noted mult ilevel anterior vertebral endplate osteophytes bridging C4-5 and C5-6 levels. There is no evidence of acute fracture nor listhesis. No prevertebral soft tissue swelling. Degener ative changes are evident in the facet joints. IMPRESSION: No significant radiographic change compared to 08/26/2020. DATA REPOSITORY: RADIATION DOSE DELIVERED:
== END 2020-12-26 02:02 ==
PROVIDERS: PCP Internal Medicine; Visit Provider Neurological Surgery
DX: S12.691D Other nondisplaced fracture of seventh cervical vertebra, subsequent encounter for fracture with routine healing (principal)
CPT/HCPCS: 72040

== ENCOUNTER 2021-02-11 15:55 | Outpatient (REF) | payer MEDICARE, BC, SELFPAY ==
[2021-02-11 13:44] LABS: Anion Gap 10.3 mmol/L (3-11); BUN 15 mg/dL (7-18); CO2 28.7 mmol/L (21.0-32.0); CREATININE 0.8 mg/dL (0.70-1.30); Calcium 8.8 mg/dL (8.5-10.1); Calculated LDL 105 mg/dL (<100); Chloride 103 mmol/L (98-107); Cholesterol 170 mg/dL (<200); Glucose 93 mg/dL (74-106); HDL Cholesterol 51 mg/dL (40-60); Potassium 3.6 mmol/L (3.5-5.1); Sodium 142 mmol/L (136-145); Triglyceride 74 mg/dL (<150)
== END 2021-02-11 15:56 | disposition home or self-care (01) ==
LOC: NCHCN 15:55
PROVIDERS: PCP Internal Medicine; Visit Provider Internal Medicine
DX: I10 Essential (primary) hypertension (principal); Z13.6 Encounter for screening for cardiovascular disorders
CPT/HCPCS: 80048; 80061

== ENCOUNTER 2022-02-18 12:46 | Outpatient (REF) | payer MEDICARE, BC, SELFPAY ==
[2022-02-18 14:43] LABS: Anion Gap 8.5 mmol/L (3-11); BUN 12 mg/dL (7-18); CO2 29.5 mmol/L (21.0-32.0); CREATININE 0.8 mg/dL (0.70-1.30); Calcium 9.1 mg/dL (8.5-10.1); Chloride 104 mmol/L (98-107); Glucose 101 mg/dL (74-106); Potassium 3.5 mmol/L (3.5-5.1); Sodium 142 mmol/L (136-145)
== END 2022-02-18 12:47 | disposition home or self-care (01) ==
LOC: NCHCN 12:46
PROVIDERS: PCP Internal Medicine; Visit Provider Family Medicine
DX: I10 Essential (primary) hypertension (principal)
CPT/HCPCS: 80048

== ENCOUNTER 2022-10-13 18:13 | Outpatient (REF) | payer MEDICARE, BC, SELFPAY ==
[2022-10-13 19:33] LABS: ESR 2 mm/hr (0-20)
== END 2022-10-13 18:14 | disposition home or self-care (01) ==
LOC: NCHCN 18:13
PROVIDERS: PCP Internal Medicine; Visit Provider Physician Assistant
DX: M25.59 Pain in other specified joint (principal)
CPT/HCPCS: 85652

== ENCOUNTER 2023-04-30 13:13 | Outpatient (REF) | payer MEDICARE, BC, SELFPAY ==
[2023-04-30 15:56] LABS: HGB 15.4 g/dL (13.5-17.5); MCH 31.6 pg (27.0-33.0); MCHC 34.2 % (32.0-36.0); MCV 92 fL (80-95); Platelet Count 252 10^3/uL (130-400); RBC 4.88 10^6/uL (4.36-5.78); RDW 12.9 % (11.8-14.1); RDW-SD 43.7 fL; WBC 5.78 10^3/uL (4.4-10.8)
[2023-04-30 16:12] LABS: ALT 33 U/L (16-63); AST 29 U/L (15-37); Albumin 3.9 g/dL (3.4-5.0); Alkaline Phosphatase 83 U/L (46-116); Anion Gap 9.1 mmol/L (3-11); BUN 13 mg/dL (7-18); Bilirubin, Total 1.9 mg/dL (0.2-1.0); CO2 28.9 mmol/L (21.0-32.0); CREATININE 0.7 mg/dL (0.70-1.30); Calcium 9.4 mg/dL (8.5-10.1); Chloride 105 mmol/L (98-107); Estimated GFR 93.15 (mL/min/1.73m2); Glucose 91 mg/dL (74-106); Potassium 3.7 mmol/L (3.5-5.1); Sodium 143 mmol/L (136-145); Total Protein 6.7 g/dL (6.4-8.2)
== END 2023-04-30 13:14 | disposition home or self-care (01) ==
LOC: NCHCN 13:13
PROVIDERS: PCP Internal Medicine; Visit Provider Physician Assistant
DX: I10 Essential (primary) hypertension (principal)
CPT/HCPCS: 80053; 85027

== ENCOUNTER → 2023-09-24 01:28 | Outpatient (CLI) | payer MEDICARE, BC, SELFPAY ==
--- NOTE | 2023-09-24 | DI.US_ITS ---
Exam(s) US AAA SCREENING EXAM: US AAA SCREENING CLINICAL HISTORY: SCREENING FOR AAA,VASCULAR DISORDER,i99.9 COMPARISON: US Cardiac from 03/28/2018 FINDINGS: Proximal diameter abdominal aorta is 2.3 cm. Mid level diameter 1.9 cm. Distally there is lack of n ormal tapering with distal measurement 2.3 cm. Left common iliac artery diameter upper normal. Ther e is element of arterial megaly of the visualized common iliac arteries. Maximum diameter of the rig ht common iliac artery is 1.8 cm and maximum diameter of the left common iliac artery is 1.5 cm. IMPRESSION: There is lack of normal distal tapering of the abdominal aorta. With mild prominence of the diameter of the distal abdominal aorta (2.3 cm). There is no prominent aneurysm. Mild arterial megaly in the common iliac arteries with measurements as above. DATA REPOSITORY:
== END ==
PROVIDERS: PCP Internal Medicine; Visit Provider Physician Assistant
DX: Z13.6 Encounter for screening for cardiovascular disorders (principal)
CPT/HCPCS: 76706

== ENCOUNTER → 2023-12-29 15:12 | Outpatient (CLI) | payer MEDICARE, BC, SELFPAY ==
--- NOTE | 2023-12-29 | DI.RAD_ITS ---
Exam(s) XR CHEST 2V PA LATERAL EXAM: XR CHEST 2V PA LATERAL CLINICAL HISTORY: WHEEZING R06.2 TECHNIQUE: 2D digital imaging was performed of the chest. Images were obtained. PA and lateral v iews were obtained. COMPARISON: CR,XR XR CHEST 2V PA LATERAL from 12/05/2019 FINDINGS: MEDIASTINUM: Normal. HEART: Normal. PULMONARY VASCULATURE: Normal. LUNGS: Clear. PLEURAL SPACE: No pleural effusion or pneumothorax. BONE:Within normal limits for the patient's age. OTHER FINDINGS:There is elevation of the right hemidiaphragm. IMPRESSION: No acute pulmonary findings. DATA REPOSITORY: RADIATION DOSE DELIVERED:
== END ==
PROVIDERS: PCP Internal Medicine; Visit Provider Physician Assistant
DX: R06.2 Wheezing (principal)
CPT/HCPCS: 71046

== ENCOUNTER → 2024-03-17 14:53 | Outpatient (CLI) | payer MEDICARE, BC, SELFPAY ==
--- NOTE | 2024-03-17 | DI.US_ITS ---
Exam(s) US ABDOMEN EXAM: US ABDOMEN CLINICAL HISTORY: RUQ pain R10.11 TECHNIQUE: Ultrasound abdomen performed using standard protocol. COMPARISON: US US AAA SCREENING from 09/24/2023 FINDINGS: The gait exam somewhat limited to overlying bowel gas. The patient ate 3 hours prior to the exam. LIVER: Normal size. Increased echogenicity and coarsened echotexture which could indicate hepatic st eatosis. Echogenicity. No focal liver lesions are seen. GALLBLADDER: The gallbladder is filled with stones. There is diffuse gallbladder wall thickening to 6 millimeters. There is no abnormal gallbladder distention. No pericholecystic fluid identified. DUMAS'S SIGN: Negative. BILIARY SYSTEM: No intrahepatic or extrahepatic biliary ductal dilation. KIDNEYS: Kidneys are symmetric in size. No evidence of renal calculi. No evidence of hydronephrosis. Parapelvic cysts both kidneys. PANCREAS: Normal where visualized. SPLEEN: Not enlarged. ABDOMINAL AORTA AND IVC: Visualized portions normal caliber. ASCITES: None seen. IMPRESSION: Gallbladder is contracted and filled with stones. No biliary dilatation. No evidence of acute mali cystitis. DATA REPOSITORY:
--- NOTE | 2024-03-17 15:04 | DI.RAD_ITS ---
Exam(s) XR CHEST 2V PA LATERAL EXAM: XR CHEST 2V PA LATERAL CLINICAL HISTORY: R07.9 Chest pain unspecified TECHNIQUE: 2D digital imaging was performed. Two views. COMPARISON: CR XR CHEST 2V PA LATERAL from 12/29/2023 FINDINGS: Stable elevation of the right diaphragm. HEART: Normal size. Aorta: Not dilated. PULMONARY VASCULATURE: Normal. MEDIASTINUM: No visible adenopathy. LUNGS: Clear. PLEURAL SPACE: No pleural effusion or pneumothorax. BONE:Hardware lower cervical spine. Syndesmophyte formation along thoracic spine. No compression fr actures. SOFT TISSUES: Unremarkable. IMPRESSION: No acute abnormality. DATA REPOSITORY: RADIATION DOSE DELIVERED:
== END ==
PROVIDERS: PCP Physician Assistant; Visit Provider Physician Assistant Medical
DX: K80.20 Calculus of gallbladder without cholecystitis without obstruction; R07.9 Chest pain, unspecified
CPT/HCPCS: 71046; 76700

== ENCOUNTER 2024-03-17 14:57 | Outpatient (CLI) | payer MEDICARE, BC, SELFPAY ==
[2024-03-17 15:05] LABS: Abs Immature Grans 0.01 10^3/uL (0.0-0.06); Absolute Basophil Count 0.06 10^3/uL (0.0-0.2); Absolute Eosinophil Count 0.16 10^3/uL (0.0-0.7); Absolute Monocyte Count 0.46 10^3/uL (0.1-0.8); Absolute Neutrophil Count 5.28 10^3/uL (1.2-6.7); Basophils % 0.8 %; Eosinophils % 2.2 %; HCT 45.5 % (40.0-50.0); HGB 15.2 g/dL (13.5-17.5); Immature Grans % 0.1 %; Lymphocytes % 16.7 %; MCH 31.1 pg (27.0-33.0); MCHC 33.4 % (32.0-36.0); MCV 93 fL (80-95); MPV 11.3 fL (8.0-11.0); Monocytes % 6.4 %; Neutrophils % 73.8 %; Platelet Count 216 10^3/uL (130-400); RBC 4.89 10^6/uL (4.36-5.78); RDW 12.9 % (11.8-14.1); RDW-SD 43.9 fL; WBC 7.17 10^3/uL (4.4-10.8)
[2024-03-17 15:19] LABS: ALT 26 U/L (16-63); AST 14 U/L (15-37); Albumin 3.8 g/dL (3.4-5.0); Alkaline Phosphatase 86 U/L (46-116); Anion Gap 8.3 mmol/L (3-11); BUN 14 mg/dL (7-18); Bilirubin, Total 1.03 mg/dL (0.2-1.0); CO2 28.7 mmol/L (21.0-32.0); Calcium 9.1 mg/dL (8.5-10.1); Chloride 105 mmol/L (98-107); Estimated GFR 75.61 (mL/min/1.73m2); Glucose 124 mg/dL (74-106); Potassium 3.3 mmol/L (3.5-5.1); Sodium 142 mmol/L (136-145); Total Protein 7.1 g/dL (6.4-8.2)
[2024-03-17 15:24] LABS: Lipase 367 U/L (16-77)
== END 2024-03-17 14:58 | disposition home or self-care (01) ==
LOC: LBO 14:57
PROVIDERS: PCP Physician Assistant; Visit Provider Physician Assistant Medical
DX: R10.11 Right upper quadrant pain (principal)
CPT/HCPCS: 36415; 80053; 83690; 85025

== ENCOUNTER 2024-03-17 20:00 | Observation (INO) | payer MEDICARE, BC, SELFPAY ==
[2024-03-17 20:02] VITALS: BP 160/94; PULSE 68; RESP 16; TEMP 36.8; O2SAT 94
--- NOTE | 2024-03-17 20:02 | W.ED.GENAD ---
Discharge Plan Disposition Patient Disposition: Admit to [facility] Discharge Details Chief Complaint: Abd Prob Clinical Impression: Elevated lipase, Acute gallstone pancreatitis Primary Care Provider: Chidi Moreno ED Provider: Yusuf Chairez [place] Meds and New Rx's Prescriptions: No Action omeprazole 20 mg capsule,delayed release(DR/EC) 20 mg PO DAILY Qty: 30 2RF omeprazole 40 mg capsule,delayed release(DR/EC) 40 mg PO DAILY Qty: 30 1RF losartan-hydrochlorothiazide [Hyzaar] 1 EACH tablet 1 tab-cap PO DAILY amlodipine 10 mg tablet 10 mg PO DAILY fluticasone propionate [Flonase Allergy Relief] 50 mcg/actuation spray,suspension 2 spray intranasal DAILY Rx Instructions: administer into each nostril budesonide-formoterol [Symbicort] 160-4.5 mcg/actuation HFA aerosol inhaler 1 inh inhalation ONCE PRN tamsulosin 0.4 mg capsule 0.4 mg PO DAILY azelastine 137 mcg (0.1 %) aerosol,spray 1 spray intranasal BID PRN Rx Instructions: administer into each nostril HPI General Date/Time Provider Initiated Documentation: 03/17/24 20:02. HPI Narrative: MDM This is an overall very well-appearing normothermic and not tachycardic 79-year-old male with gallstone pancreatitis for which he will receive IV fluids and repeat lipase. No pain on proportion to suggest necrotizing soft tissue infection. No rash to abdomen to suggest zoster. No chest pain make my suspicion for ACS low. No pulsatile mass to suggest aortic dissection. No flank pain to suggest ureterolithiasis. No cough nor shortness of breath so doubt pneumonia. No hypoxia so my suspicion is low for PE. Patient drinks a glass of wine per night but is not an alcoholic so my suspicion for alcoholic pancreatitis is low. No right lower quadrant tenderness to suggest appendicitis. No left lower quadrant tenderness to suggest diverticulitis. 9:55 PM Negative troponin. Very mild hypokalemia with a serum potassium of 3.1. Mild hyperglycemia but no anion gap and normal bicarbonate??not consistent with DKA. Elevated lipase climbing. CBC lacks anemia thrombocytopenia and leukocytosis. I spoke with Dr. Monterroso from general surgery. He requested a CT scan. He reported that if the patient's CT showed no pancreatic pseudocyst or nor any significant signs of pancreatitis that the patient may be appropriate for discharged with clear liquid diet and outpatient surgical follow-up. Alternatively, if the patient had any signs of pancreatitis or complications on CT scan plan will be for hospitalist admission with general surgery consult. 11:55 PM Patient did have signs of pancreatitis on CT scan. I spoke with Dr. Gomez who agreed graciously to accept the patient for hospitalization. Patient's pain was under control. Will keep him n.p.o. Chronic conditions affecting the care of the patient: N/A History obtained from an outside historian: N/A External record review: N/A Medications: 500 cc crystalloid Social determinants of health affecting disposition: N/A Management discussed with: General surgery Treatment/interventions considered: N/A Response to therapies provided: N/A HPI This is an 79-year-old male with a history of hypertension but not diabetes nor alcoholism arrived to the emergency department via private vehicle in setting of abnormal labs and recent diagnosis of gallstone pancreatitis. Patient endorses right upper quadrant pain worse after eating. He is slightly nauseous. He has not been vomiting. He denies dysuria or frequency. He has not had any diarrhea. He denies chest pain and any trauma to his abdomen. He has no history of hyperlipidemia. Denies any trauma to abdomen. Exam General: Well-appearing in no acute distress speaking in complete sentences. Head: Normocephalic, atraumatic. Eye: Extraocular eye movements intact. No conjunctival injection. No scleral icterus. Ear, nose, mouth, throat: Grossly normal inspection. Normal voice, handling secretions normally. Neck: Trachea midline. Cardiovascular: Well-perfused distal extremities. Regular rate and rhythm. Respiratory: Nonlabored respiration. Clear lungs bilaterally. Gastrointestinal: Nondistended abdomen. Soft. Minimal epigastric tenderness. No rebound. No guarding. Musculoskeletal: No edema. Moving all 4 extremities spontaneously. Skin: Normal for age and race, grossly normal temperature and turgor. No acute rash. Neurologic: Alert and appropriate, no apparent acute deficits. Psychiatric: Mood and manner are appropriate. Grooming and personal hygiene are appropriate. Related Data Home Medications Medication Instructions Recorded Confirmed losartan 100 1 tab-cap PO DAILY 03/07/13 03/17/24 mg-hydrochlorothiazide 25 mg tablet (Hyzaar) amlodipine 10 mg tablet 10 mg PO DAILY 11/29/23 03/17/24 budesonide-formoterol HFA 160 1 inh inhalation ONCE PRN 11/29/23 03/17/24 mcg-4.5 mcg/actuation aerosol inhaler (Symbicort) fluticasone propionate 50 2 spray intranasal DAILY 11/29/23 03/17/24 mcg/actuation nasal spray,suspension (Flonase Allergy Relief) tamsulosin 0.4 mg capsule 0.4 mg PO DAILY 11/29/23 03/17/24 azelastine 137 mcg (0.1 %) nasal 1 spray intranasal BID PRN 01/12/24 03/17/24 spray aerosol omeprazole 40 mg capsule,delayed 40 mg PO DAILY #30 caps 01/12/24 03/17/24 release omeprazole 20 mg capsule,delayed 20 mg PO DAILY #30 caps 02/22/24 03/17/24 release Previous Rx's Medication Instructions Recorded omeprazole 40 mg capsule,delayed 40 mg PO DAILY #30 caps 01/12/24 release omeprazole 20 mg capsule,delayed 20 mg PO DAILY #30 caps 02/22/24 release Allergies Allergy/AdvReac Type Severity Reaction Status Date / Time grass Allergy Intermediate Unknown Uncoded 02/22/24 09:31 mold Allergy Unknown Unknown Uncoded 02/22/24 09:31 General CINTIA: 3 Medical Decision Making Quality:SDOH Health Related Social Needs: No Data to Display PFSH All Active Problems (Updated 03/17/24 @ 23:51 by Yusuf Chairez MD) Acute gallstone pancreatitis (Acute) Elevated lipase (Acute) Cough (Acute) Impotence (Acute 03/07/13) Medical History (Updated 03/17/24 @ 23:51 by Yusuf Chairez MD) UTI symptoms Chest pain Sleep apnea Spinal stenosis Joint pain Itchy skin Diverticula of intestine Chronic recurrent sinusitis Acute bronchitis Acute sinusitis Non-toxic uninodular goiter Bradycardia Aortic valve regurgitation Essential hypertension Cervical spine fracture C6-7 HTN (hypertension) Surgical History (Updated 05/08/20 @ 00:02 by CHENG BRAUN) History of fusion of cervical spine C6-7 ACDF for C6-SAP fracture, disruption of ALL, 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
[2024-03-17] MEDS: Normal Saline 500 ML IV (20:30)
[2024-03-17 20:34] LABS: Abs Immature Grans 0.02 10^3/uL (0.0-0.06); Absolute Basophil Count 0.05 10^3/uL (0.0-0.2); Absolute Eosinophil Count 0.19 10^3/uL (0.0-0.7); Absolute Lymphocyte Count 1.53 10^3/uL (1.2-3.4); Absolute Monocyte Count 0.51 10^3/uL (0.1-0.8); Absolute Neutrophil Count 5.08 10^3/uL (1.2-6.7); Basophils % 0.7 %; Eosinophils % 2.6 %; HCT 46.5 % (40.0-50.0); HGB 15.7 g/dL (13.5-17.5); Immature Grans % 0.3 %; Lymphocytes % 20.7 %; MCH 31.3 pg (27.0-33.0); MCHC 33.8 % (32.0-36.0); MCV 93 fL (80-95); Monocytes % 6.9 %; Neutrophils % 68.8 %; Platelet Count 238 10^3/uL (130-400); RBC 5.02 10^6/uL (4.36-5.78); RDW 12.9 % (11.8-14.1); RDW-SD 43.7 fL; WBC 7.38 10^3/uL (4.4-10.8)
[2024-03-17 20:51] LABS: ALT 29 U/L (16-63); AST 17 U/L (15-37); Albumin 4.1 g/dL (3.4-5.0); Alkaline Phosphatase 93 U/L (46-116); BUN 13 mg/dL (7-18); Bilirubin, Total 0.93 mg/dL (0.2-1.0); CREATININE 0.8 mg/dL (0.70-1.30); Calcium 9.4 mg/dL (8.5-10.1); Chloride 104 mmol/L (98-107); Estimated GFR 88.91 (mL/min/1.73m2); Glucose 129 mg/dL (74-106); Potassium 3.1 mmol/L (3.5-5.1); Sodium 142 mmol/L (136-145); Total Protein 7.6 g/dL (6.4-8.2); Troponin I < 50 ng/L (< or =60)
[2024-03-17 21:25] LABS: Lipase > 375 U/L (16-77)
--- NOTE | 2024-03-17 22:00 | DI.CT_ITS ---
Exam(s) CT ABDOMEN PELVIS W EXAM: CT ABDOMEN PELVIS W CLINICAL HISTORY: elevated lipase. TECHNIQUE: Imaging Protocol: Axial computed tomography images with coronal and sagittal reformatted images were created and reviewed CONTRAST MATERIAL: Intravenous: Omnipaque 350 Contrast volume:100 ml Oral: yes / no COMPARISON: CT CT BRAIN NECK CTA from 12/05/2019 US US ABDOMEN from 03/17/2024 FINDINGS: ABDOMEN and PELVIS: Lung Bases: No acute findings. Small hiatal hernia. Liver: Normal size. Mild hepatic steatosis. No suspicious mass. Gallbladder and biliary tract: Unremarkable appearance by CT. No radiodense calculus. No biliary di lation. Prior ultrasound showed multiple stones filling the gallbladder. Pancreas: Normal density. No acute inflammatory process. No evidence of mass. Few scattered calcifi cations. Spleen: Normal. Kidneys: Normal size, contour and axis. No radiodense stones. No obstructive uropathy. No suspicious masses seen. Parapelvic cysts. Adrenal glands: No masses seen. Vasculature: Abdominal aorta non-dilated. Atherosclerotic changes. Splenic artery heavily calcifi ed. Soft tissues: Unremarkable. Bladder: Not well distended. Mild wall thickening. No calculi.No focal mass. Bowel: No obstruction. Diverticulosis. Descending and sigmoid. No diverticulitis. No bowel wall t hickening. Appendix normal. Peritoneal cavity: No ascites. No focal collection. No mesenteric inflammatory response. Bones: Degenerative changes and scoliosis. Reproductive organs: Markedly enlarged prostate. Lymph nodes: No pathologically enlarged lymph nodes. IMPRESSION:: No acute abnormality in the abdomen or pelvis. No CT evidence of acute pancreatitis. Gallbladder appears normal by CT. No biliary dilatation. Multiple gallstones were noted on ultrasou nd. RADIATION DOSE DELIVERED: Total DLP DATA REPOSITORY: All CT scans at this facility are submitted to the National Radiology Data Registry (NRDR) Dose Index Registry (DIR) with the [employer] (A[employer]). RADIATION OPTIMIZATION: All CT scans at this facility use at least one of these dose optimization te chniques: automated exposure control; mA and/or kV adjustment per patient size (includes targeted exa ms where dose is matched to clinical indication); or iterative reconstruction.
[2024-03-17] MEDS: Normal Saline - Diluent 50 ML VIAL IJ (22:30)
[2024-03-17] MEDS: Omnipaque 350 MG/ML 100 ML BTL IJ (22:30)
--- NOTE | 2024-03-17 23:49 | DI.VRAD_ITS ---
PROCEDURE INFORMATION: Exam: CT Abdomen And Pelvis With Contrast Exam date and time: 03/17/2024 10:36 PM Age: 79 years old Clinical indication: Other: Elevated lipase TECHNIQUE: Imaging protocol: Computed tomography of the abdomen and pelvis with contrast. Contrast material: OMNI 350; Contrast volume: 100 ml; Contrast route: INTRAVENOUS (IV); COMPARISON: US ABDOMEN 03/17/2024 2:57 PM FINDINGS: Lungs: There is minimal bibasilar atelectasis. Heart: The cardiac structures are normal. Coronary arteries: There is mild atherosclerotic calcification of the coronary arteries. Diaphragm: A small hiatal hernia is present. Liver: There is a diffuse decrease in hepatic parenchymal density, consistent with mild fatty infiltration. There are no focal liver lesions present. There is no evidence of intrahepatic or extrahepatic biliary ductal dilation. Small calcification seen within the liver consistent with old granulomatous exposure. Gallbladder and biliary ducts: The gallbladder is normal. There is no cholelitiasis, wall thickening or pericholecystic fluid to suggest cholecystitis. Pancreas: Calcification of the pancreas consistent with chronic or remote pancreatitis. Spleen: The spleen is normal. Adrenal glands: The adrenal glands are normal. Kidneys and ureters: Multiple parapelvic cysts present within the kidneys bilaterally greater on the left than the right. The kidneys are otherwise normal. Stomach and bowel: There is no evidence of intestinal obstruction. Mild to moderate diverticulosis is present in the sigmoid and descending colon. No evidence of diverticulitis. There is mild increased colonic fecal content. The colon is nondilated. These findings suggest a mild degree of constipation. Clinical correlation recommended. There is focal dilation of the sigmoid colon with decreased caliber and possible mild bowel wall thickening proximal and distal to the dilated segment. No definitive sigmoid twist to suggest sigmoid volvulus. Appendix: A normal appendix is identified. There is no evidence of distention or periappendiceal inflammation to suggest appendicitis. Intraperitoneal space: There is no free intraperitoneal air. There is no evidence of free intraperitoneal or pelvic fluid. Vasculature: The aorta demonstrates mild atherosclerotic calcification. The inferior venacava appears normal.The portal, mesenteric and splenic veins are patent. Lymph nodes: There is no evidence of lymphadenopathy. Urinary bladder: There is nonspecific bladder wall thickening. This may be related to incomplete bladder filling. Reproductive: The prostate gland demonstrates calcification and marked nonspecific enlargement. The seminal vesicles are normal. Bones/joints: There is a mild convex dextroscoliosis of the lumbar spine with moderate degenerative changes. The skeletal structures and soft tissues show no evidence of fracture or other acute processes. The thoracolumbar spine demonstrates moderate degenerative changes at multiple levels.There are diffuse enthesopathic changes consistent with benign diffuse idiopathic skeletal hyperostosis (DISH). Soft tissues: The extra-abdominal soft tissues are normal. There is a fat-containing umbilical hernia. IMPRESSION: 1. There is mild increased colonic fecal content. The colon is nondilated. These findings suggest a mild degree of constipation. Clinical correlation recommended. 2. There is focal dilation of the sigmoid colon with decreased caliber and possible mild bowel wall thickening proximal and distal to the dilated segment. No definitive sigmoid twist to suggest sigmoid volvulus. 3. Calcification of the pancreas consistent with chronic or remote pancreatitis. Dictated and Authenticated by: Michael Candelaria MD. Ordering:GISSELL Goldberg MD
[2024-03-18 00:34] VITALS: BP 184/91; PULSE 64; RESP 16; O2SAT 97
--- NOTE | 2024-03-18 01:03 | HPE_ITS ---
Date of service: 03/18/24 Time of Service: 01:03 Assessment and Plan Assessment and plan (1) Pancreatitis: Start date: 03/17/24 Status: Acute Assessment and plan: This is an 79-year-old gentleman with subacute pancreatitis, with worsening lipase rising though symptoms only persistent but not escalating. Though there is no evidence of common duct obstruct, patient does have a contracted gallbladder for gallstones by ultrasound. CT scan does not reveal cholecystitis or gallstones and biliary tree and common duct were not dilated, the pancreas did show evidence of subacute previous pancreatitis but no acute pancreatitis though the lipase was elevated and his discomfort persisted. Most of the discomfort appears to be in the right upper quadrant and has with gallbladder disease rather than acute pancreatitis though it is possible he has passed a stone causing his recent symptoms. He will need his gallbladder removed eventually. He does not require ERCP or MRCP at this time with symptoms minimal. If he improves with IV hydration and rest as well as pain control, he will be discharged for outpatient follow-up with surgery. He does drink wine daily and he may have had previous bouts of contrast which were last seen severe and subclinical without regulation. Patient does appear stable. He is a full code. Qualifiers: Acute pancreatitis complication: no infection or necrosis Chronicity: a cute Pancreatitis type: biliary Qualified Code(s): K85.10 - Biliary acute pancreatitis without necrosis or infection (2) Elevated lipase: Start date: 03/17/24 Status: Acute Assessment and plan: He does have an elevated lipase but minimal symptoms of pancreatitis no CT evidence of pancreatitis. He has evidence of previous pancreatitis. Advised cessation of alcohol use long-term follow-up surgery with gallbladder most likely to be removed in the near future. He does have cholelithiasis but no evidence of acute cholecystitis. Gallbladder is contracted and possibly nonfunctional. (3) Hypokalemia: Start date: 03/18/24 Status: Acute Assessment and plan: Repletion and follow-up clinically. Long-term patient may need to be on potassium supplements be controlled with losartan for blood pressure control. (4) HTN (hypertension): Assessment and plan: Continue outpatient medicalle hospitalized. Qualifiers: Hypertension type: primary hypertension Qualified Code(s): I10 - Essential (primary) hypertension (5) Alcohol abuse, daily use: Status: Chronic Assessment and plan: Patient does drink daily and advised that long-term he may want to quit alcohol use. (6) Bradycardia: Assessment and plan: Patient does have bradycardic rate despite hypertension. He is not on a beta- lee. Monitor clinically and consider further cardiovascular evaluation if evidence of heart block. He is not having symptoms. 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 He did have lower sternal and epigastric discomfort March 04, 2024 might be muscular but it persisted and it difficult to find comfortable positions. He did eventually seek medical care the day of admission and with labs and ultrasound of his abdomen he was found to have a contracted gallbladder for gallstones with no evidence of cholecystitis or common duct dilatation. His lipase was elevated. He came to the ED for evaluation and CT scan did evidence of chronic previous pancreatitis as patient has no history of previous events. He does drink a glass of wine daily but may drink more. He has had no changes with constipation usually in the last 2 weeks having increased frequency feeling like he cannot have a complete bowel movement. No change in his stools. Little bit of hypertension but no CAD or previous cardiac events. He also takes omeprazole for dyspepsia. He does have COPD with inhalers chronically but has had no cough or recent respiratory symptoms. He is not dyspneic with exertion. Since his pain persisted and he had a positive ultrasound, he was admitted because of his lipase escalating above measurable though his symptoms persisted but were not worsening. He was told that he will need gallbladder eventually. He is not diabetic. He will receive IV hydration with clear fluids only and trend lipase. If he has worsening symptoms surgery can be consulted. He is a full code Review of Systems Narrative: 13 point review of systems otherwise unrevealing or stable. PFSH All Active Problems (Updated 03/18/24 @ 22:51 by Arturo Gomez) Alcohol abuse, daily use (Chronic) Hypokalemia (Acute) Pancreatitis (Acute) Acute gallstone pancreatitis (Acute) Elevated lipase (Acute) Cough (Acute) Impotence (Acute 03/07/13) Medical History (Updated 03/18/24 @ 22:51 by Arturo Gomez) UTI symptoms Chest pain Sleep apnea Spinal stenosis Joint pain Itchy skin Diverticula of intestine Chronic recurrent sinusitis Acute bronchitis Acute sinusitis Non-toxic uninodular goiter Bradycardia Aortic valve regurgitation Essential hypertension Cervical spine fracture C6-7 HTN (hypertension) Surgical History (Updated 05/08/20 @ 00:02 by CHENG BRAUN) History of fusion of cervical spine C6-7 ACDF for C6-SAP fracture, disruption of ALL, 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 Family History (Updated 12/01/23 @ 16:58 by Francy Recinos) Other Cancer Diabetes Hypertension Social History Smoking/Tobacco Use Status: Former Tobacco Use Smoking risk assessment performed?: Yes Alcohol Intake: current Alcohol type: wine Drug use: Never Substance use type: does not use Housing: house Do you feel safe at home: Yes Do you feel safe in your relationship?: Yes Meds Allergies and Home Medications Allergies Allergy/AdvReac Type Severity Reaction Status Date / Time grass Allergy Intermediate Unknown Uncoded 02/22/24 09:31 mold Allergy Unknown Unknown Uncoded 02/22/24 09:31 Home Medications Medication Instructions Recorded Confirmed Type losartan 100 1 tab-cap PO DAILY 03/07/13 03/17/24 History mg-hydrochlorothiazide 25 mg tablet (Hyzaar) amlodipine 10 mg tablet 10 mg PO DAILY 11/29/23 03/17/24 History budesonide-formoterol HFA 160 1 inh inhalation ONCE PRN 11/29/23 03/17/24 History mcg-4.5 mcg/actuation aerosol inhaler (Symbicort) fluticasone propionate 50 2 spray intranasal DAILY 11/29/23 03/17/24 History mcg/actuation nasal spray,suspension (Flonase Allergy Relief) tamsulosin 0.4 mg capsule 0.4 mg PO DAILY 11/29/23 03/17/24 History azelastine 137 mcg (0.1 %) nasal 1 spray intranasal BID PRN 01/12/24 03/17/24 History spray aerosol omeprazole 40 mg capsule,delayed 40 mg PO DAILY #30 caps 01/12/24 03/17/24 Rx release omeprazole 20 mg capsule,delayed 20 mg PO DAILY #30 caps 02/22/24 03/17/24 Rx release Exam Narrative Exam Narrative: General: Patient appears appropriate for age, currently tanned with course and features. He is alert and oriented x 3 and in no acute distress. He is moderately obese but also visible. HEENT: Normocephalic, face with slight puffiness and coarsened features. Eyes with pupils equal and reactive to light symmetrically, extraocular movement intact and sclera anicteric. Oropharynx with moist mucosa. Neck: Supple without JVD Back: Slightly kyphotic with no CVA tenderness. Lungs:Fair aeration with bronchovesicular breath sounds diffusely, no focal rales or rhonchi. Heart: Regular rate and rhythm with no palpable murmur or gallop. Abdomen: Slightly obese, soft palpation but tenderness over the right upper quadrant with slight guarding but no true Dsouza sign. Minimal epigastric discomfort and no guarding. No rebound. No palpable hepatomegaly. Genitalia/rectal: Exam deferred. Extremity: No clubbing, cyanosis or pitting edema. Positive for changes diffusely with no joint swelling. Skin: Darkly tanned over the site as well as areas with actinic changes. Otherwise normal color with skin warm and dry. Neuro: Cranial nerves II to XII is intact, no focal motor deficits and no tremor. Psych: Normal affect and mood. No abnormal thought processes. Remote and recent memory intact. Results Imaging Imaging Studies: Exam: CT Abdomen And Pelvis With Contrast Exam date and time: 03/17/2024 10:36 PM Age: 79 years old Clinical indication: Other: Elevated lipase TECHNIQUE: Imaging protocol: Computed tomography of the abdomen and pelvis with contrast. Contrast material: OMNI 350; Contrast volume: 100 ml; Contrast route: INTRAVENOUS (IV); COMPARISON: US ABDOMEN 03/17/2024 2:57 PM FINDINGS: Lungs: There is minimal bibasilar atelectasis. Heart: The cardiac structures are normal. Coronary arteries: There is mild atherosclerotic calcification of the coronary arteries. Diaphragm: A small hiatal hernia is present. Liver: There is a diffuse decrease in hepatic parenchymal density, consistent with mild fatty infiltration. There are no focal liver lesions present. There is no evidence of intrahepatic or extrahepatic biliary ductal dilation. Small calcification seen within the liver consistent with old granulomatous exposure. Gallbladder and biliary ducts: The gallbladder is normal. There is no cholelitiasis, wall thickening or pericholecystic fluid to suggest cholecystitis. Pancreas: Calcification of the pancreas consistent with chronic or remote pancreatitis. Spleen: The spleen is normal. Adrenal glands: The adrenal glands are normal. Kidneys and ureters: Multiple parapelvic cysts present within the kidneys bilaterally greater on the left than the right. The kidneys are otherwise normal. Stomach and bowel: There is no evidence of intestinal obstruction. Mild to moderate diverticulosis is present in the sigmoid and descending colon. No evidence of diverticulitis. There is mild increased colonic fecal content. The colon is nondilated. These findings suggest a mild degree of constipation. Clinical correlation recommended. There is focal dilation of the sigmoid colon with decreased caliber and possible mild bowel wall thickening proximal and distal to the dilated segment. No definitive sigmoid twist to suggest sigmoid volvulus. Appendix: A normal appendix is identified. There is no evidence of distention or periappendiceal inflammation to suggest appendicitis. Intraperitoneal space: There is no free intraperitoneal air. There is no evidence of free intraperitoneal or pelvic fluid. Vasculature: The aorta demonstrates mild atherosclerotic calcification. The inferior venacava appears normal.The portal, mesenteric and splenic veins are patent. Lymph nodes: There is no evidence of lymphadenopathy. Urinary bladder: There is nonspecific bladder wall thickening. This may be related to incomplete bladder filling. Reproductive: The prostate gland demonstrates calcification and marked nonspecific enlargement. The seminal vesicles are normal. Bones/joints: There is a mild convex dextroscoliosis of the lumbar spine with moderate degenerative changes. The skeletal structures and soft tissues show no evidence of fracture or other acute processes. The thoracolumbar spine demonstrates moderate degenerative changes at multiple levels.There are diffuse enthesopathic changes consistent with benign diffuse idiopathic skeletal hyperostosis (DISH). Soft tissues: The extra-abdominal soft tissues are normal. There is a fat-containing umbilical hernia. IMPRESSION: 1. There is mild increased colonic fecal content. The colon is nondilated. These findings suggest a mild degree of constipation. Clinical correlation recommended. 2. There is focal dilation of the sigmoid colon with decreased caliber and possible mild bowel wall thickening proximal and distal to the dilated segment. No definitive sigmoid twist to suggest sigmoid volvulus. 3. Calcification of the pancreas consistent with chronic or remote pancreatitis. Labs 03/18/24 06:20 03/18/24 06:20 Labs: Laboratory Results - last 24 hr 03/17/24 20:25 WBC 7.38 RBC 5.02 Hgb 15.7 Hct 46.5 MCV 93 MCH 31.3 MCHC 33.8 RDW 12.9 Plt Count 238 MPV 11.0 Immature Gran % 0.3 Neutrophils % 68.8 Lymphocytes % 20.7 Monocytes % 6.9 Eosinophils % 2.6 Basophils % 0.7 Nucleated RBC % 0.0 Absolute Neutrophils 5.08 Absolute Lymphocytes 1.53 Absolute Monocytes 0.51 Absolute Eosinophils 0.19 Absolute Basophils 0.05 Sodium 142 Potassium 3.1 L Chloride 104 Carbon Dioxide 27.0 Anion Gap 11.0 BUN 13 Creatinine 0.8 Est GFR (CKD-EPI 2020) 88.91 Glucose 129 H Calcium 9.4 Total Bilirubin 0.93 AST 17 ALT 29 Alkaline Phosphatase 93 Troponin I < 50 Total Protein 7.6 Albumin 4.1 Lipase > 375 H Last Vital Signs Temp 36.8 C 03/17/24 20:02 Pulse 64 03/18/24 00:34 Resp 16 03/18/24 00:34 BP 184/91 H 03/18/24 00:34 Pulse Ox 97 03/18/24 00:34 Time Spent Time spent with Patient: 55-74 minutes Time was spent: preparing to see the patient(eg.review tests), obtaining and/or reviewing separately otained hiistory, ordering medications,tests, procedures, indepentently interpreting results, counseling the patient and care coordination
[2024-03-18] MEDS: Acetaminophen 325 MG TAB PO (02:35)
[2024-03-18 02:55] VITALS: BP 174/74; PULSE 68; RESP 20; TEMP 36.5; O2SAT 97
[2024-03-18] MEDS: POTASSIUM CHLORIDE/0.9% NACL 1,000 ML 125 MEQ IV (03:48)
[2024-03-18 07:01] LABS: HCT 41.2 % (40.0-50.0); HGB 14.3 g/dL (13.5-17.5); MCH 31.6 pg (27.0-33.0); MCHC 34.7 % (32.0-36.0); MCV 91 fL (80-95); MPV 11.9 fL (8.0-11.0); Platelet Count 214 10^3/uL (130-400); RBC 4.53 10^6/uL (4.36-5.78); RDW 12.9 % (11.8-14.1); RDW-SD 42.5 fL; WBC 6.87 10^3/uL (4.4-10.8)
[2024-03-18 07:16] LABS: INR 1.1 (0.9-1.1); Prothrombin Time 11.1 sec (9.1-11.1)
[2024-03-18 07:25] LABS: ALT 22 U/L (16-63); AST 15 U/L (15-37); Albumin 3.4 g/dL (3.4-5.0); Alkaline Phosphatase 76 U/L (46-116); Anion Gap 7.1 mmol/L (3-11); BUN 14 mg/dL (7-18); Bilirubin, Total 1.07 mg/dL (0.2-1.0); CO2 29.9 mmol/L (21.0-32.0); CREATININE 0.7 mg/dL (0.70-1.30); Calcium 8.7 mg/dL (8.5-10.1); Chloride 105 mmol/L (98-107); Estimated GFR 92.57 (mL/min/1.73m2); Glucose 100 mg/dL (74-106); Magnesium 1.9 mg/dL (1.8-2.4); Potassium 3.3 mmol/L (3.5-5.1); Sodium 142 mmol/L (136-145); Total Protein 6.3 g/dL (6.4-8.2)
[2024-03-18 07:58] LABS: Lipase > 375 U/L (16-77)
[2024-03-18 08:14] VITALS: BP 149/64; PULSE 39; RESP 15; TEMP 36.8; O2SAT 96
--- NOTE | 2024-03-18 08:15 | RT.EKG_ITS ---
APPROVED REPORT Exam: Resting ECG Reason for Exam: bradycardia Patient Location: I HR:65 bpm ECG Measurements Heart Rate 65 AXIS WI 172 P 47 QRSd 94 QRS -44 QT 414 T 101 QTc 431 Conclusion Sinus rhythm...normal P axis, V-rate 50- 99 Atrial premature complexes...SV complexes w/ short R-R intvls Anterior infarct, old...Q >40mS, abnormal ST-T, V2-V5 Lateral leads are also involved...lat Q or ST-T abnormalities
[2024-03-18] MEDS: Omeprazole 20 MG CAPCR 40 MG PO (08:45)
[2024-03-18] MEDS: Losartan 50 MG TAB 100 MG PO (08:46)
[2024-03-18] MEDS: amLODIPine 10 MG TAB PO (08:46)
[2024-03-18] MEDS: Tamsulosin 0.4 MG CAPCR PO (08:46)
[2024-03-18] MEDS: hydroCHLOROthiazide 25 MG TAB PO (08:46)
[2024-03-18] MEDS: Potassium Chloride 10 MEQ TABCR PO (08:49)
[2024-03-18] MEDS: Normal Saline Flush 10 ML SYR IVP (08:51)
[2024-03-18] MEDS: Enoxaparin 40 MG/0.4 ML SYR SC (11:03)
[2024-03-18] MEDS: Potassium Chloride 20 MEQ TABCR 40 MEQ PO (11:03)
[2024-03-18 11:40] VITALS: BP 152/75; PULSE 49; RESP 16; TEMP 36.6; O2SAT 99
--- NOTE | 2024-03-18 15:40 | W.PM.DS.N ---
Date of service: 03/18/24 Time of Service: 15:40 DS: Diagnosis Discharge Diagnosis (1) Pancreatitis: Status: Chronic (2) Elevated lipase: Status: Acute (3) Hypokalemia: Status: Acute (4) HTN (hypertension): (5) Alcohol abuse, daily use: Status: Chronic Discharge Plan Disposition Patient Disposition: Home Condition: Fair Discharge Details Reason For Visit: Pancreatitis Admit Date/Time: 03/18/24 01:21 Admit Provider: Arturo Gomez Attending Provider: Arturo Gomez Primary Care Provider: Chidi Moreno Hospital Course Hospital Course: 79 yo M who initially presented to the ED after outpatient evaluation for epigastric pain noted elevated lipase. Abdominal ultrasound was also done as an outpatient that showed gallstones but no obstruction or cholecystitis. CT abdomen/pelvis showed no acute abnormality, no evidence of pancreatitis, no biliary dilatation, but again multiple gallstones. He has a history of moderate alcohol. He was admitted for observation. His lipase remained elevated but he had only mild to moderate pain and no nausea or vomiting, even after a regular diet. After discussion with the patient and consulting surgeon Dr. Monterroso, we decided to discharge him home with surgical follow up as an outpatient. Per Dr. Monterroso he should have his gallbladder removed non-emergently. Low fat diet and abstinence from alcohol was recommended. Also of note, patient's pulse found to be as low as the mid 30s overnight. This was last evaluated in 2018. He has a known history of bradycardia. EKG did not show heart block. 14 day monitor ordered upon discharge and cardiology follow up recommended. His potassium was low and was supplemented. He felt it was related to his hydrocholorthiazide, which he states was lower in the past, but any change in his blood pressure regimen was deferred to outpatient. Home Meds and New Rx's Prescriptions: No Action omeprazole 20 mg capsule,delayed release(DR/EC) 20 mg PO DAILY Qty: 30 2RF omeprazole 40 mg capsule,delayed release(DR/EC) 40 mg PO DAILY Qty: 30 1RF losartan-hydrochlorothiazide [Hyzaar] 1 EACH tablet 1 tab-cap PO DAILY amlodipine 10 mg tablet 10 mg PO DAILY fluticasone propionate [Flonase Allergy Relief] 50 mcg/actuation spray,suspension 2 spray intranasal DAILY Rx Instructions: administer into each nostril budesonide-formoterol [Symbicort] 160-4.5 mcg/actuation HFA aerosol inhaler 1 inh inhalation ONCE PRN tamsulosin 0.4 mg capsule 0.4 mg PO DAILY azelastine 137 mcg (0.1 %) aerosol,spray 1 spray intranasal BID PRN Rx Instructions: administer into each nostril Discharge Instructions Instructions: Pancreatitis (DC) Additional Instructions: Eat a low fat diet and avoid all alcohol for now to avoid pancreatitis worsening. Stand Alone Forms: Nursing Discharge Form Referrals: Chidi Moreno [Primary Care Provider] - (Please call the office on Wednesday for a hospital follow up within 10-14 days.) Lisset Araujo MD [ [facility]YS[facility]] - (79 yo with sinus bradycardia to the 30s noted on recent admission. 14 day monitor ordered.) Santos Orona MD [ [facility]] - (79 yo active male with recent admission for pancreatitis, many gallstones.) Activity:: Activity as Tolerated Equipment/Supplies:: No Equipment Needed Diet:: As Tolerated Discharge Orders Discharge Orders: Discharge Order (Routine); Ordered 03/18/24 Ordered By: Yusuf Cleaning Other Ambulatory Orders: [address] (Routine) Timeframe: 10 Day Facility: [facility] - Location: Respiratory Therapy Ordered By: Yusuf Cleaning DS: Summary Time Spent with Patient providing and/or coordinating discharge services: Greater than 30 minutes Status at Discharge Functional status at discharge: independent ambulation Overall status at discharge: patient is back to baseline Mental Status: mental status grossly normal Speech and Movement: speech and movement normal Mood: congruent mood Affect: normal affect Quality:SDOH Health Related Social Needs: No Data to Display Exam Narrative Exam Narrative: GEN: alert and oriented, NAD HEENT: conj clear, no icterus, MMM CV: bradycardic, bigeminy notable on exam, no murmur. RESP: CTAB, normal effort ABD: +BS, soft, NT/ND EXT: No cyanosis or edema. Psych Mental Status: mental status grossly normal Speech and Movement: speech and movement normal Mood: congruent mood Affect: normal affect DS: Data Vitals/I&O Vitals and I&O: Vital Signs Temperature 36.6 C 03/18/24 11:40 Temperature Source Temporal Artery Scan 03/18/24 11:40 Pulse 49 L 03/18/24 11:40 Pulse Rhythm Irregular 03/18/24 08:00 Respiratory Rate 16 03/18/24 11:40 Respiratory Effort Normal, Non-Labored 03/18/24 08:00 Respiratory Depth Normal 03/18/24 08:00 Respiratory Pattern Normal 03/18/24 08:00 Blood Pressure 152/75 H 03/18/24 11:40 Blood Pressure Position Sitting 03/17/24 20:02 Pulse Oximetry 99 03/18/24 11:40 Oxygen Delivery Method Room Air 03/18/24 11:40 Oxygen Flow Rate 0 03/18/24 11:40 Pain Level 0 03/18/24 11:40 Comment RN notified of vitals 03/18/24 11:40 Intake & Output 03/17/24 03/18/24 03/18/24 23:59 11:59 23:59 Intake Total 510 / 510 10 / 10 Output Total 1100 / 1100 Balance 510 / 510 -1090 / -1090 Weight 81.647 kg 81.8 kg Intake: IV 510 / 510 10 / 10 Output: Urine 1100 / 1100 Other: Urine Color Yellow Urine Appearance Clear Urine Odor None Comment voids independently in toilet Voiding Methods Toilet Data Completed and Pending Labs on day of discharge: Labs from last 24 hours 03/18/24 03/17/24 06:20 20:25 WBC 6.87 7.38 RBC 4.53 5.02 Hgb 14.3 15.7 Hct 41.2 46.5 MCV 91 93 MCH 31.6 31.3 MCHC 34.7 33.8 RDW 12.9 12.9 Plt Count 214 238 MPV 11.9 H 11.0 Immature Gran % 0.3 Neutrophils % 68.8 Lymphocytes % 20.7 Monocytes % 6.9 Eosinophils % 2.6 Basophils % 0.7 Nucleated RBC % 0.0 Absolute Neutrophils 5.08 Absolute Lymphocytes 1.53 Absolute Monocytes 0.51 Absolute Eosinophils 0.19 Absolute Basophils 0.05 PT 11.1 INR 1.1 Sodium 142 142 Potassium 3.3 L 3.1 L Chloride 105 104 Carbon Dioxide 29.9 27.0 Anion Gap 7.1 11.0 BUN 14 13 Creatinine 0.7 0.8 Est GFR (CKD-EPI 2020) 92.57 88.91 Glucose 100 129 H Calcium 8.7 9.4 Magnesium 1.9 Total Bilirubin 1.07 H 0.93 AST 15 17 ALT 22 29 Alkaline Phosphatase 76 93 Troponin I < 50 Total Protein 6.3 L 7.6 Albumin 3.4 4.1 Lipase > 375 H > 375 H PFSH All Active Problems (Updated 03/18/24 @ 03:10 by Arturo Gomez) Alcohol abuse, daily use (Chronic) Hypokalemia (Acute) Pancreatitis (Chronic) Acute gallstone pancreatitis (Acute) Elevated lipase (Acute) Cough (Acute) Impotence (Acute 03/07/13) Medical History (Updated 03/18/24 @ 03:10 by Arturo Gomez) UTI symptoms Chest pain Sleep apnea Spinal stenosis Joint pain Itchy skin Diverticula of intestine Chronic recurrent sinusitis Acute bronchitis Acute sinusitis Non-toxic uninodular goiter Bradycardia Aortic valve regurgitation Essential hypertension Cervical spine fracture C6-7 HTN (hypertension) Surgical History (Updated 05/08/20 @ 00:02 by CHENG BRAUN) History of fusion of cervical spine C6-7 ACDF for C6-SAP fracture, disruption of ALL, 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 Family History (Updated 12/01/23 @ 16:58 by Francy Recinos) Other Cancer Diabetes Hypertension Social History Smoking/Tobacco Use Status: Former Tobacco Use Smoking risk assessment performed?: Yes Alcohol Intake: current Alcohol type: wine Drug use: Never Substance use type: does not use Housing: house Do you feel safe at home: Yes Do you feel safe in your relationship?: Yes Time Spent with Patient Time Spent with Patient: 45-69 minutes Time was spent: preparing to see the patient(eg.review tests), obtaining and/or reviewing separately otained hiistory, ordering medications,tests, procedures, referring, communicating with other health care management assistant, indepentently interpreting results, counseling the patient and care coordination
== END 2024-03-18 16:23 | disposition home or self-care (01) ==
LOC: ER 03-18 02:05 → MS 03-18 02:37
PROVIDERS: Admitting Provider Family Medicine; Emergency Provider Emergency Medicine; PCP Physician Assistant; Visit Provider Family Medicine
DX: K85.10 Biliary acute pancreatitis without necrosis or infection (principal); E87.6 Hypokalemia; F10.10 Alcohol abuse, uncomplicated; I10 Essential (primary) hypertension; J44.9 Chronic obstructive pulmonary disease, unspecified; Z79.899 Other long term (current) drug therapy; I35.1 Nonrheumatic aortic (valve) insufficiency
CPT/HCPCS: 00123; 36415; 80053; 83690; 85027; 96360; 96361; 96372; 99285; J1650; 71046; 74177; 76700; 83735; 84484; 85025; 85610; 93005; 93010; 99234; G0378; J3490

== ENCOUNTER 2024-03-28 09:51 | Outpatient (CLI) | payer MEDICARE, BC, SELFPAY | END 2024-03-28 09:52 | disposition home or self-care (01) | PROVIDERS: PCP Physician Assistant; Visit Provider Physician Assistant | DX: R00.1 Bradycardia, unspecified (principal) | CPT/HCPCS: 93246 ==

== ENCOUNTER → 2024-04-11 11:32 | Outpatient (BNVA) | payer MEDICARE, BC, SELFPAY | PROVIDERS: PCP Physician Assistant; Referring Provider Physician Assistant; Visit Provider Surgery | DX: K85.10 Biliary acute pancreatitis without necrosis or infection (principal) | CPT/HCPCS: 99214 ==

== ENCOUNTER 2024-04-17 13:43 | Outpatient (CLI) | payer MEDICARE, BC, SELFPAY ==
--- NOTE | 2024-04-18 14:51 | CER_ITS ---
Date of service: 04/18/24 Time of Service: 14:51 Cardiac Event Recorder Referring Provider:: Chidi Moreno Indications:: Bradycardia Cardiac Event Note: This is a cardiac event monitor. Patient was monitored for 13 days and 6 hours. Predominant rhythm was sinus with an average heart rate of 63. Minimum was 25, maximum 124.. Bradycardia occurred during sleep There were rare ventricular ectopic beats. There were several brief runs of nonsustained ventricular tachycardia There were frequent atrial premature beats comprising 40% of total. Self- limited atrial runs occurred. The longest of these lasted 16 seconds There was no atrial fibrillation, no high-grade AV block, no pauses greater than 3 seconds Symptoms were reported which corresponded to atrial and ventricular ectopic beats
== END 2024-04-17 13:44 | disposition home or self-care (01) ==
LOC: CARDOPNVT 13:43
PROVIDERS: PCP Physician Assistant; Visit Provider Internal Medicine Cardiovascular Disease
DX: I47.10 Supraventricular tachycardia, unspecified; I49.1 Atrial premature depolarization
CPT/HCPCS: 93248

== ENCOUNTER 2024-05-04 09:59 | Outpatient (CLI) | payer MEDICARE, BC, SELFPAY ==
--- NOTE | 2024-05-04 09:45 | RT.EKG_ITS ---
APPROVED REPORT Exam: Resting ECG Reason for Exam: bradycardia Patient Location: O HR:77 bpm ECG Measurements Heart Rate 77 AXIS WA 172 P 55 QRSd 94 QRS -41 QT 421 T 109 QTc 477 Conclusion Sinus rhythm...normal P axis, V-rate 50- 99 Left axis Poor R wave progression Minor nondiagnostic ST-T abnormalities
== END 2024-05-04 10:00 | disposition home or self-care (01) ==
LOC: DI.CARD 10:00
PROVIDERS: PCP Physician Assistant; Visit Provider Internal Medicine Cardiovascular Disease
DX: R00.1 Bradycardia, unspecified (principal)
CPT/HCPCS: 93010

== ENCOUNTER → 2024-05-04 11:08 | Outpatient (BNVA) | payer MEDICARE, BC, SELFPAY | PROVIDERS: PCP Physician Assistant; Referring Provider Physician Assistant; Visit Provider Internal Medicine Cardiovascular Disease | DX: Z01.810 Encounter for preprocedural cardiovascular examination (principal); I49.3 Ventricular premature depolarization; I10 Essential (primary) hypertension; R00.1 Bradycardia, unspecified; R07.9 Chest pain, unspecified | CPT/HCPCS: 93005; 99214 ==

== ENCOUNTER 2024-05-24 07:29 | Day surgery (SDC) | payer MEDICARE, BC, SELFPAY ==
--- NOTE | 2024-05-23 19:14 | W.PM.DSUDISC ---
Date of service: 05/24/24 Time of Service: 10:22 Discharge Plan Disposition Patient Disposition: Home Condition: Good Discharge Details Reason For Visit: laparoscopic cholecystectomy Attending Provider: Santos Orona Primary Care Provider: Chidi Moreno Home Meds and New Rx's Prescriptions: New tramadol 50 mg tablet 50 mg PO Q8H PRNQty: 12 0RF Rx Instructions: Take 1 tablet by mouth up to every 8 hours if needed for more severe pain. Continued omeprazole 20 mg capsule,delayed release(DR/EC) 20 mg PO DAILY Qty: 90 1RF losartan-hydrochlorothiazide [Hyzaar] 1 EACH tablet 1 tab-cap PO DAILY amlodipine 10 mg tablet 10 mg PO DAILY fluticasone propionate [Flonase Allergy Relief] 50 mcg/actuation spray,suspension 2 spray intranasal DAILY Rx Instructions: administer into each nostril budesonide-formoterol [Symbicort] 160-4.5 mcg/actuation HFA aerosol inhaler 1 inh inhalation ONCE PRN tamsulosin 0.4 mg capsule 0.4 mg PO DAILY azelastine 137 mcg (0.1 %) aerosol,spray 1 spray intranasal BID PRN Rx Instructions: administer into each nostril Discharge Instructions Instructions: Cholecystectomy (DC) Additional Instructions: Daryl, we were able to remove your gallbladder today just as we discussed before hand. All of that went very smoothly. There was a small abnormality on your liver a few centimeters away from the gallbladder. I did remove this today, and I will send it off to the pathologist for their interpretation of what it might represent. Clinically, it appears to be a simple cyst, but just to be safe I will have them tested. Your common bile duct, which is the duct adjacent to the gallbladder was also a little bit larger than I would expect. However, that is very difficult to see in patients who have had gallstone pancreatitis. Will see how it responds to removal of your gallbladder. I look forward to seeing you in the office, and if you have any questions in the meantime, please do not hesitate to call or ask at any point. 1. Resume all of your regular medications. 2. Alternate heating pads and ice packs over the incisions to help with pain. 3. Alternate over the counter tylenol and ibuprofen every 6 hours for 2 days, then use as needed. Use the prescription for tramadol if needed for more severe pain. 4. Leave bandages in place for 24 hours, then remove. 5. Shower with warm soapy water. Pat dry. Use a bandaid if needed to protect your clothing. 6. No soaking or tub baths until I see you in the office. 7. No heavy lifting until I see you in the office. 8. Call the office (or go directly to the emergency room after hours) if you notice any of the following: Develop chills (warm to touch), or if you have a thermometer and your temperature is above 101 Difficulty breathing or difficultly swallowing Persistent vomiting Any bleeding ? exceeding one tablespoon 9. Call your physician if the site where your intravenous was started becomes red, swollen, painful, and warm to touch. Activity:: no hevy lifting Remove Dressings/Wound Care:: 24 hours Shower/Bathe:: 24 hours Diet:: As Tolerated Discharge Orders Discharge Orders: Discharge Order (Routine); Ordered 05/23/24 Ordered By: Santos Orona DS: Diagnosis Discharge Diagnosis (1) Gallstone pancreatitis: Status: Acute Asessment and Plan: Status post laparoscopic cholecystectomy; routine outpatient office follow-up
--- NOTE | 2024-05-23 19:18 | HPE_ITS ---
Assessment and Plan Assessment and plan (1) Gallstone pancreatitis: Status: Acute Assessment and plan: We reviewed the plan for laparoscopic cholecystectomy today and Naseem had a chance to ask any other questions that he has regarding the operation. We can proceed with cholecystectomy. History of Present Illness History of Present Illness Chief Complaint: gallstone pancreatitis Narrative: Daryl is 79 years old, he was recently hospitalized with gallstone pancreatitis. He described the acute onset of mid epigastric pain that radiated to his back for several days. At first he thought he just pulled a muscle. When the pain failed to improve, and in fact, got a little worse, he went to express care and then ultimately to the emergency department. He had a serum lipase level greater than 375. He underwent a CT scan of the abdomen and pelvis that did not show radiographic signs of pancreatitis, but he did have some gallstones. Furthermore, ultrasound confirmed the presence of cholelithiasis. Since his discharge, he has been doing well. He has been following a strict low-fat diet, and has been asymptomatic. Since his last visit he was seen by Dr Araujo for pre-operative risk stratification. Daryl still has a little bit of intermittent gassy and bloating symptoms, but otherwise there have been no major changes to the interval history or physical exam. PFSH All Active Problems Gallstone pancreatitis (Acute) GERD (gastroesophageal reflux disease) (Chronic) Preoperative cardiovascular examination (Acute) Alcohol abuse, daily use (Chronic) Pancreatitis (Acute) Acute gallstone pancreatitis (Acute) Elevated lipase (Acute) Cough (Acute) controlled with Omeprazole Impotence (Acute 03/07/13) Medical History UTI symptoms Sleep apnea Spinal stenosis Joint pain Itchy skin Diverticula of intestine Chronic recurrent sinusitis Acute bronchitis Acute sinusitis Non-toxic uninodular goiter Bradycardia Aortic valve regurgitation Essential hypertension Cervical spine fracture C6-7 HTN (hypertension) Surgical History History of fusion of cervical spine C6-7 ACDF for C6-SAP fracture, disruption of ALL, 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 Family History Other Cancer Diabetes Hypertension Social History Smoking/Tobacco Use Status: Former Tobacco Use Quit Date: 09/27/74 Smoking risk assessment performed?: Yes Alcohol Intake: current Alcohol type: wine Drug use: Never Substance use type: does not use Housing: house Do you feel safe at home: Yes Do you feel safe in your relationship?: Yes Meds Allergies and Home Medications Allergies Allergy/AdvReac Type Severity Reaction Status Date / Time grass Allergy Intermediate Unknown Uncoded 05/24/24 07:46 mold Allergy Unknown Unknown Uncoded 05/24/24 07:46 Home Medications ?Medication ?Instructions ?Recorded ?Confirmed ?Type losartan 100 1 tab-cap PO DAILY 03/07/13 05/24/24 History mg-hydrochlorothiazide 25 mg tablet (Hyzaar) amlodipine 10 mg tablet 10 mg PO DAILY 11/29/23 05/24/24 History budesonide-formoterol HFA 160 1 inh inhalation ONCE PRN 11/29/23 05/24/24 History mcg-4.5 mcg/actuation aerosol inhaler (Symbicort) fluticasone propionate 50 2 spray intranasal DAILY 11/29/23 05/23/24 History mcg/actuation nasal spray,suspension (Flonase Allergy Relief) tamsulosin 0.4 mg capsule 0.4 mg PO DAILY 11/29/23 05/24/24 History azelastine 137 mcg (0.1 %) nasal 1 spray intranasal BID PRN 01/12/24 05/23/24 H istory spray omeprazole 20 mg capsule,delayed 20 mg PO DAILY #90 caps 05/15/24 05/23/24 Rx release Exam Const General: cooperative, healthy appearing and not in acute distress Neck Neck: normal visual inspection, no lymphadenopathy and supple Resp Effort & Inspection: normal respiratory effort Auscultation: clear to auscultation bilaterally Cardio Jugular venous pressure: no JVD Rate: regular rate Rhythm: regular rhythm Heart Sounds: S1 normal and S2 normal GI Inspection: normal to inspection Palpation: soft, no guarding, no hernias and nontender Percussion: normal to percussion Auscultation: normal bowel sounds Neuro General: patient alert, patient awake and patient oriented x3 Psych Appearance: grossly normal
--- NOTE | 2024-05-23 19:21 | W.PM.OP ---
Date of service: 05/24/24 Time of Service: 10:27 Operative Note Operative Note DATE OF PROCEDURE: 05/24/24 PRE-OP DIAGNOSIS: Gallstone pancreatitis POST-OP DIAGNOSIS: other (Gallstone pancreatitis with liver mass) PROCEDURE: Laparoscopic cholecystectomy with excisional biopsy of segment 5 liver mass SURGEON: Santos Orona SENIOR MEDICAL TRANSCRIPTIONIST: Thomas Lakhani ANESTHESIA TYPE: General LMA/ETT Refer to Anesthesia Record ESTIMATED BLOOD LOSS: 10 PATHOLOGY: other (Gallbladder, liver mass) COMPLICATIONS: None Patient was transported to: PACU Patient's condition: stable Indications: Daryl is an 79-year-old male who required hospitalization for gallstone pancreatitis. He is here for elective cholecystectomy to reduce likelihood of recurrent pancreatitis Findings: Cholelithiasis with segment 5 liver mass Procedure Description: After satisfactory induction of general anesthesia, I prepped and draped the abdomen in usual fashion. Next, I began with a periumbilical incision. I dissected down to the fascia and elevated it with Lynne clamps. I incised it sharply. Next, I passed a 12 mm operating port in the umbilical site. I secured it to the fascia with 0 Vicryl stitches. I then insufflated the peritoneal cavity. Next I inserted a 5 mm 30 degree scope and examined the underlying viscera. There was no evidence of injury created upon entry. I then placed the patient in some reverse Trendelenburg and left side down positioning. Then, with the assistance of the laparoscope, I used local anesthetic to anesthetize the midepigastric and 2 right upper quadrant port sites. Under the vision of the laparoscope, I passed 3 more 5 mm ports. I then grasped the gallbladder fundus and elevated cephalad. Just a few centimeters lateral to the gallbladder, segment 5 of the liver was a small cystic structure hanging off of the liver edge. By palpation, it did feel like there were some solid component to it. I then examined all 4 quadrants of the abdomen and pelvis for any other pathology. The common bile duct was dilated. I did not appreciate any other abnormalities, or any findings that would be concerning for malignancy. Therefore, I turned my attention back to the gallbladder. Again, with the dome retracted cephalad, I began by dissecting the gallbladder infundibulum. Using the assistance of indocyanine green visualization, I worked in a lateral to medial fashion. Once I skeletonized the cystic duct and cystic artery, with a satisfactory critical view of safety, I doubly clipped and divided them. I then used electrocautery to dissect the gallbladder off the gallbladder fossa. I passed the gallbladder into an Endo Catch bag and removed it by way of the umbilical site. Next, I turned my attention back to the liver mass. I carefully dissected the surrounding liver away from using a combination of blunt dissection, as well as electrocautery. With cauterized margins, I believe I was able to excise this completely. There was no bleeding from the liver bed. I examined the rest of the surgical field. It was hemostatic. I then removed the 5 mm ports under the vision of the laparoscope. Finally, I removed the umbilical port site and closed the fascia with Vicryl stitches. Sites were irrigated, and the skin was closed with subcuticular stitches. Bandages were applied, patient was awakened from anesthesia, and transferred to the recovery unit.
[2024-05-24] VITALS (22 sets, daily range): BP systolic 99–157; BP diastolic 40–87; PULSE 55–87; RESP 9–20; TEMP 36–36.6; O2SAT 92–98; BMI 25.5
--- NOTE | 2024-05-24 06:20 | W.ANESPRE ---
General Info Date of Service Date Performed: 05/24/24 Height: 5 ft 10 in Weight: 80.739 kg Body Mass Index (BMI): 25.5 Surgical Procedure: Operation Date: 05/24/24 08:55 Proposed Procedure Side Surgeon p Cholecystectomy Laparoscopic Santos Orona MD Meds Allergies and Home Medications Allergies Allergy/AdvReac Type Severity Reaction Status Date / Time grass Allergy Intermediate Unknown Uncoded 05/24/24 07:46 mold Allergy Unknown Unknown Uncoded 05/24/24 07:46 Home Medication ?Medication ?Instructions ?Recorded losartan 100 1 tab-cap PO DAILY 03/07/13 mg-hydrochlorothiazide 25 mg tablet (Hyzaar) amlodipine 10 mg tablet 10 mg PO DAILY 11/29/23 budesonide-formoterol HFA 160 1 inh inhalation ONCE PRN 11/29/23 mcg-4.5 mcg/actuation aerosol inhaler (Symbicort) fluticasone propionate 50 2 spray intranasal DAILY 11/29/23 mcg/actuation nasal spray,suspension (Flonase Allergy Relief) tamsulosin 0.4 mg capsule 0.4 mg PO DAILY 11/29/23 azelastine 137 mcg (0.1 %) nasal 1 spray intranasal BID PRN 01/12/24 spray omeprazole 20 mg capsule,delayed 20 mg PO DAILY #90 caps 05/15/24 release Current Visit Medications: Current Medications Generic Name Dose Route Start Last Admin Trade Name Freq PRN Reason Stop Dose Admin Acetaminophen 1,000 mg 05/24/24 06:00 Acetaminophen 500 Mg Tab PO 05/24/24 23:59 PREOP DAVON Celecoxib 200 mg 05/24/24 06:00 Celecoxib 200 Mg Cap PO 05/24/24 23:59 PREOP DAVON Gabapentin 300 mg 05/24/24 06:00 Gabapentin 300 Mg Cap PO 05/24/24 23:59 PREOP DAVON Hydromorphone HCl 0.2 mg 05/23/24 19:21 Hydromorphone 2 Mg/Ml Syr IVP 06/22/24 19:20 Q1H PRN PRN Ringer's Solution 1,000 mls @ 80 mls/hr 05/24/24 06:00 IV 05/24/24 23:59 INFUSION DAVON Cefazolin Sodium/Dextrose 2 gm in 50 mls @ 100 mls/hr 05/24/24 06:00 Ancef Duplex IVPB 05/24/24 23:59 PREOP DAVON IV Miscellaneous Supplies 1 each 05/24/24 06:00 Iv Access IV 05/24/24 23:59 DIRECTED DAVON Indocyanine Green 5 mg 05/24/24 06:00 Indocyanine Green 25 Mg Vial IVP 05/24/24 23:59 DIRECTED DAVON Sodium Chloride 0 ml 05/24/24 06:00 Normal Saline Flush 10 Ml Syr IV 05/24/24 23:59 PRN PRN Sodium Chloride 0 ml 05/24/24 06:00 Normal Saline 10 Ml Vial IJ 05/24/24 23:59 DIRECTED PRN Sterile Water 0 ml 05/24/24 06:00 Water,Injection,Sterile 10 Ml Vial IJ 05/24/24 23:59 DIRECTED PRN Tramadol HCl 50 mg 05/23/24 19:21 Tramadol 50 Mg Tab PO 06/22/24 19:20 Q6H PRN PRN Pain PFSH Active Problems Active Problems: Problem Status Onset Code Gallstone pancreatitis Acute K85.10 GERD (gastroesophageal reflux disease) Chronic K21.9 Preoperative cardiovascular examination Acute Z01.810 Alcohol abuse, daily use Chronic F10.10 Pancreatitis Acute K85.90 Acute gallstone pancreatitis Acute K85.10 Elevated lipase Acute R74.8 Cough Acute R05.9 Impotence Acute 03/07/13 N52.9 Medical History Medical History UTI symptoms Sleep apnea Spinal stenosis Joint pain Itchy skin Diverticula of intestine Chronic recurrent sinusitis Acute bronchitis Acute sinusitis Non-toxic uninodular goiter Bradycardia Aortic valve regurgitation Essential hypertension Cervical spine fracture C6-7 HTN (hypertension) Surgical History Surgical History History of fusion of cervical spine C6-7 ACDF for C6-SAP fracture, disruption of ALL, 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 Tobacco Smoking/Tobacco Use Status: Former Tobacco Use Alcohol Alcohol Intake: current Alcohol type: wine Substance Use Substance use: Never Substance use type: does not use Vital Signs and Lab Results Vital Signs Most Recent Vital Signs in EMR: Temp Pulse Resp BP Pulse Ox 36.6 C 71 18 157/87 H 97 05/24/24 07:48 05/24/24 07:48 05/24/24 07:48 05/24/24 07:48 05/24/24 07:48 Lab Results Blood Type / Crossmatch: No Data to Display Complete Blood Count: No Data to Display Complete Metabolic Panel: No Data to Display Liver Function Panel: No Data to Display Coagulation Panel: No Data to Display Cardiac Panel: No Data to Display Arterial Blood Gas: No Data to Display Venous Blood Gas: No Data to Display Pancreas Panel: No Data to Display Thyroid Panel: No Data to Display Infectious Disease: No Data to Display Blood Cultures: No Data to Display Toxicology Panel: No Data to Display Imaging and Studies Imaging and Studies Study information below may be from another EMR and interpreted by another provider. Please see original notes in EMR for more complete details. EKG Summary: 05/04/24 Conclusion Sinus rhythm...normal P axis, V-rate 50- 99 Stress Test Summary: 03/09/18 Stress results: Maximal heart rate during stress was 148bpm (102% of maximal predicted heart rate). The maximal predicted heart rate was 145bpm. The target heart rate was achieved. The heart rate response to stress is exaggerated. There is resting hypertension with an appropriate response to stress. The rate-pressure product for the peak heart rate and blood pressure was 23407ts Hg/min. Exercise capacity is reduced (7 METS). Stress ECG: EXCERCISE TESTING ENDED IN 5 MINS, 30 SECS DUE TO FATIGUE. MAX HR WAS 148, 102% OF TARGET. NORMAL BLOOD PRESSURE RESPONSE. METS:7.05 ECTOPY:NO ECTOPY AT REST, BUT PVC'S NOTED SOON STRESS TESTING STARTED. BIGEMINY AND QUADRIGEMINY OF PVC'S NOTED UNTIL 3 MINS OF RECOVERY, THEN NO MORE NOTED. ANGINA: NO REPORTED CHEST PAIN OR PRESSURE. ISCHEMIA: NO ISCHEMIC CHANGES NOTED. FUNCTIONAL CAPACITY: MILDLY DIMINISHED CAPACITY. The stress ECG is negative. Frequent isolated PVCs and fusion beats. No ventricular tachycardia. Molina treadmill score: 6. This score predicts a low risk of cardiac events. Myocardial perfusion: Imaging information: gated. The image quality was good. Left ventricular size is normal. No myocardial perfusion defects noted. Ventricular Function (Wall Motion): The calculated left ventricular ejection fraction after stress: 49%. LV global systolic function is mildly reduced. No left ventricular regional motion abnormality. Echocardiogram Summary: 03/28/18 Summary: 1. Left ventricle: The cavity size was normal. Systolic function was normal. The estimated ejection fraction was 60-65%. Diastolic parameters were normal for age. There was no evidence of elevated ventricular filling pressure by Doppler parameters. 2. Aortic valve: There was mild to moderate regurgitation. 3. Mitral valve: There was mild regurgitation. 4. Right ventricle: The cavity size was normal. Wall thickness was normal. Systolic function was normal. 5. Atrial septum: The interatrial septum was hypermobile. No defect or patent foramen ovale was identified. 6. Pulmonary arteries: Pulmonary systolic pressure was in the range of 25mm Hg to 35mm Hg. 7. Inferior vena cava: The vessel was patent and normal in size. The respirophasic diameter changes were in the normal range (greater than or equal to 50%), consistent with normal central venous pressure. Anesthesia Assessment and Plan Anesthesia History Personal History: Delayed Emergence Family History: No Family History of Anesthesia Complications Exercise Tolerance Exercise Tolerance: Metabolic Equivalents>4 Pertinent Negatives Pertinent Negatives: No Symptoms of GERD, No Major Cardiovascular Symptoms or Complaints, No Major Pulmonary Symptoms or Complaints and No History of CVA/TIA Cardiac & Pulmonary Exam Cardiac Exam: Normal S1/S2 Heart Sounds and Other (frequent ectopic beats) Pulmonary Exam: Clear Bilateral Breath Sounds Implantable Cardiac Device Does patient have a Pacemaker or an ICD?: No Airway Exam Known Difficult Airway: No Mallampati Class: 2 Mouth Opening: Normal (> 3cm) Thyromental Distance: Greater than 3 cm Neck Range of Motion: Full ROM Neck Circumference: Normal Teeth Condition: Normal Dentition and Removable Dentures/Plates Upper ASA Classification ASA Score: ASA 2 Emergency Case?: No NPO Status NPO Status: NPO Clears >2 hours, Solids >8 hours Anesthesia Plan Resuscitation Status: Full Code Anesthesia Technique: General Anesthesia Airway Planned: Endotracheal Tube Monitors Used: Standard Monitors Preoperative Comments:: Sleep study scheduled in near future
[2024-05-24] MEDS: Lactated Ringers 1,000 ML 80 ML IV (08:05)
[2024-05-24] MEDS: Indocyanine green 25 MG VIAL 5 MG IVP (08:14)
[2024-05-24] MEDS: Celecoxib 200 MG CAP PO (08:17)
[2024-05-24] MEDS: Gabapentin 300 MG CAP PO (08:17)
[2024-05-24] MEDS: Acetaminophen 500 MG TAB 1000 MG PO (08:17)
[2024-05-24] MEDS: ceFAZolin 2 GM/50 ML BAG IVPB (09:28)
[2024-05-24] MEDS: Bupivacaine 0.25% Pres-Free W/EPI 30 ML VIAL (10:03)
--- NOTE | 2024-05-24 10:10 | GB_PTH ---
PATIENT: Daryl Frances LOC: [facility] U#:[id number] AGE/SX: 79/M ROOM: RE05/24/[address]: Santos Orona MD : [id number] BED: DIS: 05/24/2024 SPEC #: [id number] RECD: 05/24/24 13:19 STATUS: SHANNEN REQ #: [id number] HOLA: 05/24/24 10:[address]: Santos Orona DEPT: Surgical Specimen RECD BY: Katrin Argueta ENTERED: 05/24/24 13:20 SP TYPE: GB OTHR DR: Chidi Moreno Tissues: 1 - GALLBLADDER 2 - LIVER BIOPSY(NEEDLE/WEDGE) Procedures: GROSS AND MICRO LEVEL 5 GROSS AND MICRO LEVEL 3 Comments: [id number]
[2024-05-24] MEDS: fentaNYL 100 MCG/2 ML VIAL IVP ×2 (11:06→11:18)
--- NOTE | 2024-05-24 11:51 | W.ANESPOSTOP ---
Postoperative Evaluation Date, Time and Location Date Performed: 05/24/24 Time Performed: 11:51 Patient Location: Day Surgery Unit Vital Signs Most Recent Imported Vital Signs: Most Recent Vital Signs Temp Pulse Resp BP Pulse Ox 36.6 C 72 15 108/40 L 93 05/24/24 11:30 05/24/24 11:31 05/24/24 11:40 05/24/24 11:31 05/24/24 11:40 Pain Score Most Recent Pain Score: Most Recent Pain Score Pain Level 5 05/24/24 11:40 Assessment Mental Status: Awake (Alert & Oriented to Patient Baseline) Airway and Respiratory Function: Patent airway with normal (patient baseline) respiratory exam Cardiovascular Function: Hemodynamically Stable Hydration Status: Adequately Hydrated Nausea & Vomiting: No Nausea or Vomiting Pain: Pain is tolerable per patient Peripheral Nerve Block: Patient did not receive a nerve block
== END 2024-05-24 13:55 | disposition home or self-care (01) ==
LOC: SUR 07:29
PROVIDERS: PCP Physician Assistant; Visit Provider Surgery
PROC: 0FT44ZZ Resection of Gallbladder, Percutaneous Endoscopic Approach (ICD-10-PCS; CPT 47562; principal; 2024-05-24 08:45)
DX: K85.10 Biliary acute pancreatitis without necrosis or infection (principal); R16.0 Hepatomegaly, not elsewhere classified; K21.9 Gastro-esophageal reflux disease without esophagitis; F10.10 Alcohol abuse, uncomplicated; I10 Essential (primary) hypertension; K80.20 Calculus of gallbladder without cholecystitis without obstruction; K76.89 Other specified diseases of liver
CPT/HCPCS: 47371; 47562; 88304; 88307; J0690; J1596; J2001; J2405; J2704; J3010

== ENCOUNTER 2024-05-25 07:41 | Emergency (ER) | payer MEDICARE, BC, SELFPAY ==
[2024-05-25 07:48] VITALS: BP 183/62; PULSE 70; RESP 16; TEMP 36.3; O2SAT 97
[2024-05-25 07:52] VITALS: BP 183/62; PULSE 70; RESP 16; TEMP 36.3; O2SAT 97
--- NOTE | 2024-05-25 08:00 | RT.EKG_ITS ---
APPROVED REPORT Exam: Resting ECG Reason for Exam: epigastric Patient Location: E HR:69 bpm ECG Measurements Heart Rate 69 AXIS OK 171 P 77 QRSd 97 QRS -47 QT 408 T 57 QTc 437 Conclusion Sinus rhythm...normal P axis, V-rate 60- 99 Atrial premature complexes...SV complexes w/ short R-R intvls Inferior infarct, old...Q >35mS, II III aVF Anterior infarct, old...Q >40mS, abnormal ST-T, V2-V5
[2024-05-25 08:22] LABS: Bilirubin Negative (Negative); Blood Trace-intact (Negative); Clarity Sl Cloudy (Clear); Glucose Negative (Negative); Ketones Trace mg/dL (Negative); Leukocyte Esterase Small (Negative); Nitrite Negative (Negative); Specific Gravity 1.015 (1.005-1.025); Urobilinogen 0.2 mg/dL (Up to 0.2); pH 6.5 (5-8)
[2024-05-25 08:32] LABS: Abs Immature Grans 0.02 10^3/uL (0.0-0.06); Absolute Basophil Count 0.03 10^3/uL (0.0-0.2); Absolute Eosinophil Count 0.02 10^3/uL (0.0-0.7); Absolute Lymphocyte Count 1.02 10^3/uL (1.2-3.4); Absolute Monocyte Count 0.73 10^3/uL (0.1-0.8); Basophils % 0.3 %; Eosinophils % 0.2 %; HCT 45.3 % (40.0-50.0); Immature Grans % 0.2 %; MCH 31.8 pg (27.0-33.0); MCHC 33.1 % (32.0-36.0); MCV 96 fL (80-95); MPV 11.8 fL (8.0-11.0); Monocytes % 6.5 %; Neutrophils % 83.8 %; Platelet Count 167 10^3/uL (130-400); RBC 4.72 10^6/uL (4.36-5.78); RDW 12.6 % (11.8-14.1); RDW-SD 45.3 fL; WBC 11.28 10^3/uL (4.4-10.8)
[2024-05-25 08:33] LABS: Absolute Neutrophil Count 9.45 10^3/uL (1.2-6.7)
[2024-05-25] MEDS: Famotidine 20 MG/2 ML VIAL IVP (08:33)
[2024-05-25 08:48] LABS: Bacteria Few HPF (Negative); Crystals Negative HPF (Negative); Epithelial Cells Rare HPF (Negative); Mucus Negative (Negative)
[2024-05-25 08:49] LABS: C & S Indicated? Yes
[2024-05-25 08:57] LABS: ALT 86 U/L (16-63); AST 47 U/L (15-37); Albumin 3.9 g/dL (3.4-5.0); Alkaline Phosphatase 118 U/L (46-116); Anion Gap 8.3 mmol/L (3-11); BUN 13 mg/dL (7-18); Bilirubin, Total 1.38 mg/dL (0.2-1.0); CO2 28.7 mmol/L (21.0-32.0); CREATININE 0.9 mg/dL (0.70-1.30); Chloride 100 mmol/L (98-107); Glucose 137 mg/dL (74-106); Lipase 127 U/L (16-77); Potassium 3.6 mmol/L (3.5-5.1); Sodium 137 mmol/L (136-145); Total Protein 7.2 g/dL (6.4-8.2)
[2024-05-25 09:00] LABS: Calcium 10.4 mg/dL (8.5-10.1)
[2024-05-25 09:02] LABS: Troponin I < 50 ng/L (< or =60)
--- NOTE | 2024-05-25 10:06 | ED.GENADUL_ITS ---
Discharge Plan Disposition Patient Disposition: Home Condition: Stable Discharge Details Clinical Impression: Acute urinary retention, Post-op pain Primary Care Provider: Chidi Moreno ED Provider: Katrin Degroot Home Meds and New Rx's Prescriptions: Continued omeprazole 20 mg capsule,delayed release(DR/EC) 20 mg PO DAILY Qty: 90 1RF losartan-hydrochlorothiazide [Hyzaar] 1 EACH tablet 1 tab-cap PO DAILY amlodipine 10 mg tablet 10 mg PO DAILY fluticasone propionate [Flonase Allergy Relief] 50 mcg/actuation sp ray,suspension 2 spray intranasal DAILY Rx Instructions: administer into each nostril budesonide-formoterol [Symbicort] 160-4.5 mcg/actuation HFA aerosol inhaler 1 inh inhalation ONCE PRN tamsulosin 0.4 mg capsule 0.4 mg PO DAILY azelastine 137 mcg (0.1 %) aerosol,spray 1 spray intranasal BID PRN Rx Instructions: administer into each nostril tramadol 50 mg tablet 50 mg PO Q8H PRNQty: 12 0RF Rx Instructions: Take 1 tablet by mouth up to every 8 hours if needed for more severe pain. Discharge Instructions Instructions: How to Care for Your Pak Catheter, Urinary Retention (DC) Additional Instructions: Continue taking your tamsulosin at home You will need your Pak catheter removed at your appointment/1 week is a reasonable timeframe Refer to enclosed packet information regarding Pak catheter Please return earlier should you have fever, chills, worsening pain, or send any new concerns arise Follow-up with your surgeon at your scheduled appointment Referrals: Chidi Moreno [Primary Care Provider] - [facility] General Date/Time Provider Initiated Documentation: 05/25/24 08:02 . HPI Narrative: This 79-year-old male history of hypertension, hyperlipidemia, COPD is presenting status post cholecystectomy yesterday for gallstone pancreatitis. Presenting predominantly with urinary symptoms. Suprapubic pain that awoke patient from sleep. States he is urinating infrequently. Also having difficulty with bowel movements for patient. Incidentally notes some epigastric pain consistent with patient's prior GERD. Denies chest pain shortness of breath, nausea vomiting or diarrhea. Related Data Home Medications ?Medication ?Instructions ?Recorded ?Confirmed losartan 100 1 tab-cap PO DAILY 03/07/13 05/25/24 mg-hydrochlorothiazide 25 mg tablet (Hyzaar) amlodipine 10 mg tablet 10 mg PO DAILY 11/29/23 05/25/24 budesonide-formoterol HFA 160 1 inh inhalation ONCE PRN 11/29/23 05/25/24 mcg-4.5 mcg/actuation aerosol inhaler (Symbicort) fluticasone propionate 50 2 spray intranasal DAILY 11/29/23 05/25/24 mcg/actuation nasal spray,suspension (Flonase Allergy Relief) tamsulosin 0.4 mg capsule 0.4 mg PO DAILY 11/29/23 05/25/24 azelastine 137 mcg (0.1 %) nasal 1 spray intranasal BID PRN 01/12/24 05/25/24 spray omeprazole 20 mg capsule,delayed 20 mg PO DAILY #90 caps 05/15/24 05/25/24 release tramadol 50 mg tablet 50 mg PO Q8H PRN #12 tabs 05/24/24 05/25/24 Previous Rx's ?Medication ?Instructions ?Recorded omeprazole 20 mg capsule,delayed 20 mg PO DAILY #90 caps 05/15/24 release tramadol 50 mg tablet 50 mg PO Q8H PRN #12 tabs 05/24/24 Allergies Allergy/AdvReac Type Severity Reaction Status Date / Time grass Allergy Intermediate Unknown Uncoded 05/25/24 07:52 mold Allergy Unknown Unknown Uncoded 05/25/24 07:52 General Stated Complaint: Urinary CINTIA: 3 Exam Narrative Exam Narrative: Alert and oriented 79-year-old male, well-healing and approximated postoperative sites no CVA tenderness, no abdominal tenderness, mild suprapubic tenderness, cardiac rate rhythm regular Course Vital Signs Vital signs: Vital Signs Temperature 36.3 C L 05/25/24 07:48 Pulse 70 05/25/24 07:48 Respiratory Rate 16 05/25/24 07:48 Blood Pressure 183/62 H 05/25/24 07:48 Pulse Oximetry 97 05/25/24 07:48 Temperature 36.3 C L 05/25/24 07:52 Temperature Source Temporal Artery Scan 05/25/24 07:52 Pulse 70 05/25/24 07:52 Respiratory Rate 16 05/25/24 07:52 Respiratory Effort Normal, Non-Labored 05/25/24 08:09 Respiratory Depth Normal 05/25/24 08:09 Respiratory Pattern Normal 05/25/24 08:09 Blood Pressure 183/62 H 05/25/24 07:52 Blood Pressure Position Sitting 05/25/24 07:52 Pulse Oximetry 97 05/25/24 07:52 Oxygen Delivery Method Room Air 05/25/24 08:09 Oxygen Flow Rate 0 05/25/24 08:09 Pain Level 6 05/25/24 08:09 Lab/Test Results Lab/Test Results: 05/25/24 08:14 Urine - Reflex from Ua Urine Culture - Pending Laboratory Tests Range/Units 05/25/24 05/25/24 08:14 08:25 WBC (4.4-10.8) 10^3/uL 11.28 H RBC (4.36-5.78) 10^6/uL 4.72 Hgb (13.5-17.5) g/dL 15.0 Hct (40.0-50.0) % 45.3 MCV (80-95) fL 96 H MCH (27.0-33.0) pg 31.8 MCHC (32.0-36.0) % 33.1 RDW (11.8-14.1) % 12.6 Plt Count (130-400) 10^3/uL 167 MPV (8.0-11.0) fL 11.8 H Immature Gran % % 0.2 Neutrophils % % 83.8 Lymphocytes % % 9.0 Monocytes % % 6.5 Eosinophils % % 0.2 Basophils % % 0.3 Nucleated RBC % (0.0-0.3) % 0.0 Absolute Neutrophils (1.2-6.7) 10^3/uL 9.45 H Absolute Lymphocytes (1.2-3.4) 10^3/uL 1.02 L Absolute Monocytes (0.1-0.8) 10^3/uL 0.73 Absolute Eosinophils (0.0-0.7) 10^3/uL 0.02 Absolute Basophils (0.0-0.2) 10^3/uL 0.03 Sodium (136-145) mmol/L 137 Potassium (3.5-5.1) mmol/L 3.6 Chloride (98-107) mmol/L 100 Carbon Dioxide (21.0-32.0) mmol/L 28.7 Anion Gap (3-11) mmol/L 8.3 BUN (7-18) mg/dL 13 Creatinine (0.70-1.30) mg/dL 0.9 Est GFR (CKD-EPI 2020) (mL/min/1.73m2) 85.80 Glucose (74-106) mg/dL 137 H Calcium (8.5-10.1) mg/dL 10.4 H Total Bilirubin (0.2-1.0) mg/dL 1.38 H AST (15-37) U/L 47 H ALT (16-63) U/L 86 H Alkaline Phosphatase (46-116) U/L 118 H Troponin I (< or =60) ng/L < 50 Total Protein (6.4-8.2) g/dL 7.2 Albumin (3.4-5.0) g/dL 3.9 Lipase (16-77) U/L 127 H Urine Color (Yellow) Yellow Urine Clarity (Clear) Sl Cloudy Urine pH (5-8) 6.5 Ur Specific [place] (1.005-1.025) 1.015 Urine Protein (Neg-Trace) mg/dL Negative Urine Ketones (Negative) mg/dL Trace H Urine Blood (Negative) Trace-intact H Urine Nitrite (Negative) Negative Urine Bilirubin (Negative) Negative Urine Urobilinogen (Up to 0.2) mg/dL 0.2 Ur Leukocyte Esterase (Negative) Small H Urine RBC (0-2) HPF 3-5 H Urine WBC (0-5) HPF 3-5 Ur Epithelial Cells (Negative) HPF Rare Urine Crystals (Negative) HPF Negative Urine Bacteria (Negative) HPF Few Urine Mucus (Negative) Negative Ur Culture Indicated? Yes Urine Glucose (Negative) mg/dL Negative Medical Decision Making 79-year-old male past cholecystectomy presenting with suprapubic pain and diff iculty urinating. Bladder scan shows greater than 800 cc, Pak catheter placed with adequate drainage, patient reports symptomatic relief. I did order blood work secondary to some epigastric pain which started in the middle of the night, this shows a lipase of 175 dramatically improved from prior. Bilirubin and LFTs are mildly elevated and mild leukocytosis at 11,000. Case was discussed with Dr. Barajas, surgery who indicates that these labs are baseline postoperatively. Patient has appointment scheduled in 1 week and will need Pak catheter removed at that time. He will continue on his tamsulosin. Return precautions reviewed and patient expressed understanding, feeling dramatic improvement at time of reassessment. Given the threshold to return when they are worsening complaints. I did review his surgical notes from yesterday. X-ray does show evidence of free air consistent with surgical operation yesterday, this was ordered to evaluate for stool volume. Quality:[facility] Health Related Social Needs: No Data to Display PFSH All Active Problems (Updated 05/25/24 @ 11:07 by GURVINDER Russell) Post-op pain (Acute) Acute urinary retention (Acute) Gallstone pancreatitis (Acute) GERD (gastroesophageal reflux disease) (Chronic) Preoperative cardiovascular examination (Acute) Alcohol abuse, daily use (Chronic) Pancreatitis (Acute) Acute gallstone pancreatitis (Acute) Elevated lipase (Acute) Cough (Acute) controlled with Omeprazole Impotence (Acute 03/07/13) Medical History (Updated 05/25/24 @ 11:07 by GURVINDER Russell) UTI symptoms Sleep apnea Spinal stenosis Joint pain Itchy skin Diverticula of intestine Chronic recurrent sinusitis Acute bronchitis Acute sinusitis Non-toxic uninodular goiter Bradycardia Aortic valve regurgitation Essential hypertension Cervical spine fracture C6-7 HTN (hypertension) Surgical History (Updated 05/24/24 @ 13:16 by Ricarda Hawk) Hx of cholecystectomy (~04/2024) History of fusion of cervical spine C6-7 ACDF for C6-SAP fracture, disruption of ALL, 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 Family History Other Cancer Diabetes Hypertension Social History Smoking/Tobacco Use Status: Former Tobacco Use Quit Date: 09/27/74 Smoking risk assessment performed?: Yes Alcohol Intake: current Alcohol type: wine Drug use: Never Substance use type: does not use Housing: house Do you feel safe at home: Yes Do you feel safe in your relationship?: Yes PAWSS Have you Been Recently Intoxicated or Drunk Within the Last 30 days?: No Have you Ever Experienced Previous Episodes of Alcohol Withdrawal?: No Have you ever Experienced Withdrawal Seizures?: No Have you ever Experienced Delirium Tremens(DT)s?: No Have you ever undergone Alcohol Rehabilitation Treatment (i.e, inpt ot outpatient treatment programs)?: No Have you ever Experienced Blackouts?: No Have you ever Combined Alcohol with other Downers within the last 90 days?: No Have you ever Combined Alcohol with any other Substance of Abuse during the last 90 days?: No Result: 0
--- NOTE | 2024-05-25 10:35 | DI.RAD_ITS ---
Exam(s) XR ABD FLAT UPRIGHT PA CHEST CLINICAL HISTORY: post op, abd discomfort. COMPARISON: No exams were available for comparison FINDINGS: LUNGS: Clear. No pleural abnormality seen. Right diaphragm again noted to be elevated. HEART: Normal. MEDIASTINUM: Normal. BOWEL GAS PATTERN: Nondistended bowel loops. No air-fluid levels seen. Normal quantity of stool. ABNORMAL COLLECTIONS OF AIR: No abnormal collection of air. There is free air is noted beneath the di aphragms. CALCIFICATIONS: None. No radiopaque renal, ureteral, or bladder calcification. Degenerative changes noted in spine. Enthesophytes at iliac wings. IMPRESSION: 1. Free air beneath the diaphragm consistent with recent surgery. Nonobstructive bowel gas pattern. 2. No acute pulmonary findings.
[2024-05-25] MEDS: Lidocaine 2% Jelly 11 ML SYR UR (10:57)
== END 2024-05-25 19:15 | disposition home or self-care (01) ==
PROVIDERS: Emergency Provider Physician Assistant; PCP Physician Assistant
DX: R33.8 Other retention of urine (principal); G89.18 Other acute postprocedural pain
CPT/HCPCS: 36415; 51702; 51798; 80053; 83690; 93005; 96374; 99284; 74022; 81003; 81015; 84484; 85025; 87086; 93010; 99283

== ENCOUNTER 2024-05-25 17:58 | Emergency (ER) | payer MEDICARE, BC, SELFPAY ==
[2024-05-25 18:00] VITALS: BP 180/92; PULSE 72; RESP 12; TEMP 36.7; O2SAT 94
--- NOTE | 2024-05-25 19:21 | ED.GENADUL_ITS ---
Discharge Plan Disposition Patient Disposition: Home Condition: Stable Discharge Details Clinical Impression: Acute urinary retention Primary Care Provider: Chidi Moreno ED Provider: Thea Ferguson Home Meds and New Rx's Prescriptions: No Action omeprazole 20 mg capsule,delayed release(DR/EC) 20 mg PO DAILY Qty: 90 1RF losartan-hydrochlorothiazide [Hyzaar] 1 EACH tablet 1 tab-cap PO DAILY amlodipine 10 mg tablet 10 mg PO DAILY fluticasone propionate [Flonase Allergy Relief] 50 mcg/actuation spray,suspe nsion 2 spray intranasal DAILY Rx Instructions: administer into each nostril budesonide-formoterol [Symbicort] 160-4.5 mcg/actuation HFA aerosol inhaler 1 inh inhalation ONCE PRN tamsulosin 0.4 mg capsule 0.4 mg PO DAILY azelastine 137 mcg (0.1 %) aerosol,spray 1 spray intranasal BID PRN Rx Instructions: administer into each nostril tramadol 50 mg tablet 50 mg PO Q8H PRNQty: 12 0RF Rx Instructions: Take 1 tablet by mouth up to every 8 hours if needed for more severe pain. Discharge Instructions Instructions: How to Care for Your Pak Catheter Additional Instructions: Continue taking your tamsulosin at home You will need your Pak catheter removed at your appointment/1 week is a reasonable timeframe Refer to enclosed packet information regarding Pak catheter Please return earlier should you have fever, chills, worsening pain, or send any new concerns arise Follow-up with your surgeon at your scheduled appointment HPI General Date/Time Provider Initiated Documentation: 05/25/24 18:07 . Limitations to Documentation: no limitations . Information obtained by: patient, family and old records reviewed . HPI Narrative: 79-year-old gentleman with recent emergency department evaluation for urinary retention and Pak catheter placement returns for reevaluation of the Pak catheter. At the time of discharge, patient declined a leg bag. reports that when they got home he removed his pants, the full Pak catheter bag fell to the floor and pulled, yanking on his penis and causing some bleeding. The bleeding has since stopped. But they have returned for evaluation of this. Related Data Home Medications ?Medication ?Instructions ?Recorded ?Confirmed losartan 100 1 tab-cap PO DAILY 03/07/13 05/25/24 mg-hydrochlorothiazide 25 mg tablet (Hyzaar) amlodipine 10 mg tablet 10 mg PO DAILY 11/29/23 05/25/24 budesonide-formoterol HFA 160 1 inh inhalation ONCE PRN 11/29/23 05/25/24 mcg-4.5 mcg/actuation aerosol inhaler (Symbicort) fluticasone propionate 50 2 spray intranasal DAILY 11/29/23 05/25/24 mcg/actuation nasal spray,suspension (Flonase Allergy Relief) tamsulosin 0.4 mg capsule 0.4 mg PO DAILY 11/29/23 05/25/24 azelastine 137 mcg (0.1 %) nasal 1 spray intranasal BID PRN 01/12/24 05/25/24 spray omeprazole 20 mg capsule,delayed 20 mg PO DAILY #90 caps 05/15/24 05/25/24 release tramadol 50 mg tablet 50 mg PO Q8H PRN #12 tabs 05/24/24 05/25/24 Previous Rx's ?Medication ?Instructions ?Recorded omeprazole 20 mg capsule,delayed 20 mg PO DAILY #90 caps 05/15/24 release tramadol 50 mg tablet 50 mg PO Q8H PRN #12 tabs 05/24/24 Allergies Allergy/AdvReac Type Severity Reaction Status Date / Time grass Allergy Intermediate Unknown Uncoded 05/25/24 07:52 mold Allergy Unknown Unknown Uncoded 05/25/24 07:52 General Stated Complaint: Urinary CINTIA: 4 Exam Narrative Exam Narrative: Review of Systems: All systems reviewed & are unremarkable except as noted in HPI and below Well-developed, no acute distress NCAT Pak catheter in place, there is some dried blood around the penis and scrotum, but there is no active bleeding from the meatus, the Pak catheter bag is tied to his leg using a neck tie Course Vital Signs Vital signs: Vital Signs Temperature 36.7 C 05/25/24 18:00 Pulse 72 05/25/24 18:00 Respiratory Rate 12 05/25/24 18:00 Blood Pressure 180/92 H 05/25/24 18:00 Pulse Oximetry 94 05/25/24 18:00 Temperature 36.7 C 05/25/24 18:00 Temperature Source Temporal Artery Scan 05/25/24 18:00 Pulse 72 05/25/24 18:00 Respiratory Rate 12 05/25/24 18:00 Respiratory Effort Non-Labored 05/25/24 18:58 Blood Pressure 180/92 H 05/25/24 18:00 Pulse Oximetry 94 05/25/24 18:00 Oxygen Delivery Method Room Air 05/25/24 18:00 Oxygen Flow Rate 0 05/25/24 18:00 Pain Level 8 05/25/24 18:57 Medical Decision Making Evaluation of Pak catheter. There appears to have been some mild trauma and tugging on the catheter, likely causing some urethral injury. There is no active or ongoing bleeding. Treatment for this would be the continued placement of the Pak catheter and can be further evaluated by urology at the time of removal. Discussed the importance of utilizing the securing system in the leg bag to prevent additional traumas like this. The patient and his agreed to take a leg bag now and were again provided with additional instructions on home Pak care. Quality:[facility] Health Related Social Needs: No Data to Display PFSH All Active Problems Post-op pain (Acute) Acute urinary retention (Acute) Gallstone pancreatitis (Acute) GERD (gastroesophageal reflux disease) (Chronic) Preoperative cardiovascular examination (Acute) Alcohol abuse, daily use (Chronic) Pancreatitis (Acute) Acute gallstone pancreatitis (Acute) Elevated lipase (Acute) Cough (Acute) controlled with Omeprazole Impotence (Acute 03/07/13) Medical History UTI symptoms Sleep apnea Spinal stenosis Joint pain Itchy skin Diverticula of intestine Chronic recurrent sinusitis Acute bronchitis Acute sinusitis Non-toxic uninodular goiter Bradycardia Aortic valve regurgitation Essential hypertension Cervical spine fracture C6-7 HTN (hypertension) Surgical History Hx of cholecystectomy (~04/2024) History of fusion of cervical spine C6-7 ACDF for C6-SAP fracture, disruption of ALL, 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 Family History Other Cancer Diabetes Hypertension Social History Smoking/Tobacco Use Status: Former Tobacco Use Quit Date: 09/27/74 Smoking risk assessment performed?: Yes Alcohol Intake: current Alcohol type: wine Drug use: Never Substance use type: does not use Housing: house Do you feel safe at home: Yes Do you feel safe in your relationship?: Yes
== END 2024-05-25 19:44 | disposition home or self-care (01) ==
PROVIDERS: Emergency Provider Emergency Medicine; PCP Physician Assistant
DX: R33.8 Other retention of urine (principal); T83.9XXA Unspecified complication of genitourinary prosthetic device, implant and graft, initial encounter
CPT/HCPCS: 36415; 51702; 51798; 80053; 83690; 93005; 96374; 99281; 99284; 74022; 81003; 81015; 84484; 85025; 87086; 99282; 99283

== ENCOUNTER 2024-06-05 13:57 | Outpatient (REF) | payer MEDICARE, BC, SELFPAY ==
[2024-06-05 13:18] LABS: Bilirubin Negative (Negative); Blood Negative (Negative); Clarity Sl Cloudy (Clear); Glucose Negative (Negative); Ketones Negative (Negative); Leukocyte Esterase Negative (Negative); Nitrite Negative (Negative); Urobilinogen 0.2 mg/dL (Up to 0.2)
== END 2024-06-05 13:58 | disposition home or self-care (01) ==
LOC: NCHCN 13:57
PROVIDERS: PCP Physician Assistant; Visit Provider Physician Assistant
DX: R30.0 Dysuria (principal)
CPT/HCPCS: 81003

== ENCOUNTER → 2024-06-06 09:12 | Outpatient (BNVA) | payer MEDICARE, BC, SELFPAY | PROVIDERS: PCP Physician Assistant; Referring Provider Physician Assistant; Visit Provider Surgery | DX: Z48.815 Encounter for surgical aftercare following surgery on the digestive system (principal) ==

== ENCOUNTER → 2024-07-03 12:59 | Outpatient (BNVA) | payer MEDICARE, BC, SELFPAY | PROVIDERS: PCP Physician Assistant; Referring Provider Internal Medicine; Visit Provider Nurse Practitioner Gerontology | DX: N40.1 Benign prostatic hyperplasia with lower urinary tract symptoms (principal); N13.8 Other obstructive and reflux uropathy; R39.12 Poor urinary stream; R35.1 Nocturia; R97.20 Elevated prostate specific antigen [PSA] | CPT/HCPCS: 51798; 81003; 99215 ==

== ENCOUNTER 2024-08-21 15:43 | Outpatient (REF) | payer MEDICARE, BC, SELFPAY ==
[2024-08-21 19:15] LABS: Abs Immature Grans 0.02 10^3/uL (0.0-0.06); Absolute Basophil Count 0.04 10^3/uL (0.0-0.2); Absolute Eosinophil Count 0.19 10^3/uL (0.0-0.7); Absolute Lymphocyte Count 1.46 10^3/uL (1.2-3.4); Absolute Monocyte Count 0.47 10^3/uL (0.1-0.8); Absolute Neutrophil Count 5.24 10^3/uL (1.2-6.7); Basophils % 0.5 %; Eosinophils % 2.6 %; HCT 44.4 % (40.0-50.0); HGB 14.9 g/dL (13.5-17.5); Immature Grans % 0.3 %; Lymphocytes % 19.7 %; MCH 31.1 pg (27.0-33.0); MCHC 33.6 % (32.0-36.0); MCV 93 fL (80-95); MPV 12.2 fL (8.0-11.0); Monocytes % 6.3 %; Neutrophils % 70.6 %; Platelet Count 218 10^3/uL (130-400); RBC 4.79 10^6/uL (4.36-5.78); RDW 12.9 % (11.8-14.1); RDW-SD 43.8 fL; WBC 7.42 10^3/uL (4.4-10.8)
[2024-08-21 19:32] LABS: AST 17 U/L (15-37); Albumin 3.9 g/dL (3.4-5.0); Alkaline Phosphatase 101 U/L (46-116); BUN 17 mg/dL (7-18); Bilirubin, Total 1.18 mg/dL (0.2-1.0); Calcium 9.2 mg/dL (8.5-10.1); Chloride 104 mmol/L (98-107); Glucose 169 mg/dL (74-106); Lipase 58 U/L (<78); Potassium 3.4 mmol/L (3.5-5.1); Sodium 141 mmol/L (136-145); Total Protein 6.8 g/dL (6.4-8.2)
[2024-08-21 19:54] LABS: ALT 30 U/L (16-63); CREATININE 0.9 mg/dL (0.70-1.30)
== END 2024-08-21 15:44 | disposition home or self-care (01) ==
LOC: NCHCN 15:43
PROVIDERS: PCP Physician Assistant; Visit Provider Physician Assistant
DX: R10.9 Unspecified abdominal pain (principal)
CPT/HCPCS: 80053; 83690; 85025

== ENCOUNTER 2024-09-13 02:55 | Outpatient (CLI) | payer MEDICARE, BC, SELFPAY ==
--- NOTE | 2024-09-13 | DI.CT_ITS ---
Exam(s) CT ABDOMEN PELVIS W EXAM: CT ABDOMEN PELVIS W CLINICAL HISTORY: Abdominal pain, R10.9 TECHNIQUE: Imaging Protocol: Axial computed tomography images with coronal and sagittal reformatted images were created and reviewed. CONTRAST MATERIAL: Intravenous: Omnipaque 350 Contrast volume:100 mL Oral: Yes COMPARISON: CT CT ABDOMEN PELVIS W from 03/17/2024 FINDINGS: ABDOMEN: Lung Bases: 3 vessel coronary artery calcification is present. There is a small hiatal hernia. Ther e are pulmonary nodule seen in the lung bases. They do not appear to been present on the CT examinat ion from 03/17/2024. The largest is in the right middle lobe measures 5 mm (series 10, image 16). Liver: Normal density. No measurable mass. Portal, Superior Mesenteric, and Splenic Veins: There is narrowing of the proximal portal vein. This lies within an area of decreased attenuation which appears to involve the superior aspect of the yoder creatic head suspicious for mass. This area measures 2.9 x 3.4 cm (series 8, image 28). There is di latation of the pancreatic duct. The mass does appear to involve portions of the celiac axis and pro ximal splenic artery. Gallbladder and Biliary Tract: Since prior examination the patient has undergone a cholecystectomy. No biliary ductal dilatation is seen. Pancreas: Please see the above section under portal veins. Spleen: Normal. Adrenals: No masses seen. Kidneys: Normal size, contour and axis. Bilateral nephrolithiasis. No obstructive uropathy. There a re left parapelvic cysts. No follow-up is recommended. No suspicious renal masses. Abdominal Aorta: Abdominal portion non-dilated. Atherosclerotic calcification is present. Bowel: There is diverticulosis of the colon without evidence of acute diverticulitis. No evidence of bowel obstruction or bowel wall thickening. No evidence of appendicitis. Peritoneal Cavity: No ascites, collection or mesenteric inflammatory response. No free air. Lymph Nodes: Within normal limits. Bones: Within normal limits for the patient's age. No aggressive osseous lesions are seen. Multilev el degenerative changes are seen in the lumbar spine resulting in central spinal canal stenosis. Soft Tissues: Unremarkable. PELVIS: Bladder: The urinary bladder is incompletely distended limiting evaluation. No gross abnormality is seen. Reproductive Organs: Prostate gland is enlarged. Lymph Nodes: Within normal limits. Bones: Within normal limits for the patient's age. IMPRESSION: 1. 2.9 x 3.4 cm hypodense masslike area which appears to arise from the pancreatic head. It results in narrowing of the proximal portal vein and splenic artery. Pancreatic neoplasm is suspected. Elias opathy should also be considered. MRI of the abdomen without and with contrast is recommended for fu rther evaluation. 2. Interval cholecystectomy. 3. New nodules in the lung bases. CT scan of the chest is recommended. Unexpected findings RADIATION DOSE DELIVERED: 395.88mGy.cm Total DLP DATA REPOSITORY: All CT scans at this facility are submitted to the National Radiology Data Registry (NRDR) Dose Index Registry (DIR) with the [employer] (ACR). RADIATION OPTIMIZATION: All CT scans at this facility use at least one of these dose optimization te chniques: automated exposure control; mA and/or kV adjustment per patient size (includes targeted exa ms where dose is matched to clinical indication); or iterative reconstruction.
[2024-09-13] MEDS: Normal Saline - Diluent 50 ML VIAL IJ (08:52)
[2024-09-13] MEDS: Omnipaque 350 MG/ML 100 ML BTL IJ (08:55)
[2024-09-13] MEDS: Barium Sulfate 2% W/V-Creamy Vanilla Smoothie 450 ML BTL PO (09:07)
== END 2024-09-13 03:15 ==
LOC: DI 02:55
PROVIDERS: PCP Physician Assistant; Visit Provider Physician Assistant
DX: R93.3 Abnormal findings on diagnostic imaging of other parts of digestive tract (principal)
CPT/HCPCS: 74177; J3490

== ENCOUNTER 2024-10-27 00:32 | Outpatient (RCR) | payer MEDICARE, BC, SELFPAY ==
[2024-10-20 13:41] LABS: Abs Immature Grans 0.01 10^3/uL (0.0-0.06); Absolute Basophil Count 0.04 10^3/uL (0.0-0.2); Absolute Eosinophil Count 0.15 10^3/uL (0.0-0.7); Absolute Lymphocyte Count 1.02 10^3/uL (1.2-3.4); Absolute Monocyte Count 0.51 10^3/uL (0.1-0.8); Absolute Neutrophil Count 4.94 10^3/uL (1.2-6.7); Basophils % 0.6 %; Eosinophils % 2.2 %; HCT 43.1 % (40.0-50.0); HGB 14.3 g/dL (13.5-17.5); Immature Grans % 0.1 %; Lymphocytes % 15.3 %; MCH 30.7 pg (27.0-33.0); MCHC 33.2 % (32.0-36.0); MCV 93 fL (80-95); MPV 11.9 fL (8.0-11.0); Monocytes % 7.6 %; Neutrophils % 74.2 %; Platelet Count 173 10^3/uL (130-400); RBC 4.66 10^6/uL (4.36-5.78); RDW-SD 43.7 fL; WBC 6.67 10^3/uL (4.4-10.8)
[2024-10-20 13:56] LABS: ALT 46 U/L (16-63); AST 16 U/L (15-37); Albumin 3.5 g/dL (3.4-5.0); Alkaline Phosphatase 97 U/L (46-116); Anion Gap 2.4 mmol/L (3-11); BUN 12 mg/dL (7-18); Bilirubin, Total 1.27 mg/dL (0.2-1.0); CO2 35.6 mmol/L (21.0-32.0); CREATININE 0.8 mg/dL (0.70-1.30); Calcium 9.1 mg/dL (8.5-10.1); Chloride 103 mmol/L (98-107); Estimated GFR 88.91 (mL/min/1.73m2); Glucose 121 mg/dL (74-106); Potassium 3.5 mmol/L (3.5-5.1); Sodium 141 mmol/L (136-145); Total Protein 6.8 g/dL (6.4-8.2)
[2024-10-23 12:14] LABS: CA 19-9 3051 U/mL (<35)
[2024-10-27 10:36] LABS: Abs Immature Grans 0.02 10^3/uL (0.0-0.06); Absolute Basophil Count 0.03 10^3/uL (0.0-0.2); Absolute Lymphocyte Count 0.51 10^3/uL (1.2-3.4); Absolute Monocyte Count 0.09 10^3/uL (0.1-0.8); Absolute Neutrophil Count 6.84 10^3/uL (1.2-6.7); Basophils % 0.4 %; Eosinophils % 1.3 %; HCT 39.5 % (40.0-50.0); HGB 13.1 g/dL (13.5-17.5); Immature Grans % 0.3 %; Lymphocytes % 6.7 %; MCH 30.5 pg (27.0-33.0); MCHC 33.2 % (32.0-36.0); MCV 92 fL (80-95); MPV 12.8 fL (8.0-11.0); Monocytes % 1.2 %; Neutrophils % 90.1 %; Platelet Count 128 10^3/uL (130-400); RDW 12.9 % (11.8-14.1); RDW-SD 43.5 fL; WBC 7.59 10^3/uL (4.4-10.8)
[2024-10-27 10:46] LABS: ALT 33 U/L (16-63); AST 18 U/L (15-37); Albumin 3.2 g/dL (3.4-5.0); Alkaline Phosphatase 82 U/L (46-116); Anion Gap 4.4 mmol/L (3-11); BUN 15 mg/dL (7-18); Bilirubin, Total 3.73 mg/dL (0.2-1.0); CO2 33.6 mmol/L (21.0-32.0); CREATININE 0.8 mg/dL (0.70-1.30); Calcium 8.8 mg/dL (8.5-10.1); Chloride 102 mmol/L (98-107); Estimated GFR 88.91 (mL/min/1.73m2); Glucose 224 mg/dL (74-106); Potassium 3.5 mmol/L (3.5-5.1); Sodium 140 mmol/L (136-145); Total Protein 6.2 g/dL (6.4-8.2)
[2024-10-27] MEDS: Normal Saline Flush 10 ML SYR IVP (10:49)
== END 2024-10-27 23:59 | disposition home or self-care (01) ==
LOC: INF 00:32
PROVIDERS: PCP Physician Assistant; Visit Provider Internal Medicine Hematology & Oncology
DX: C25.9 Malignant neoplasm of pancreas, unspecified (principal); C78.7 Secondary malignant neoplasm of liver and intrahepatic bile duct
CPT/HCPCS: 36591; 80053; 85025; 86301

== ENCOUNTER 2024-11-23 02:38 | Outpatient (RCR) | payer MEDICARE, BC, SELFPAY ==
[2024-11-03] MEDS: Normal Saline Flush 10 ML SYR IVP (13:55)
[2024-11-03 14:00] LABS: Abs Immature Grans 0.04 10^3/uL (0.0-0.06); Absolute Basophil Count 0.01 10^3/uL (0.0-0.2); Absolute Lymphocyte Count 0.75 10^3/uL (1.2-3.4); Absolute Monocyte Count 0.52 10^3/uL (0.1-0.8); Absolute Neutrophil Count 6.58 10^3/uL (1.2-6.7); Basophils % 0.1 %; HCT 36.9 % (40.0-50.0); HGB 12.6 g/dL (13.5-17.5); Immature Grans % 0.5 %; Lymphocytes % 9.5 %; MCH 31.1 pg (27.0-33.0); MCHC 34.1 % (32.0-36.0); MCV 91 fL (80-95); MPV 11.7 fL (8.0-11.0); Monocytes % 6.6 %; Neutrophils % 83.3 %; Platelet Count 109 10^3/uL (130-400); RBC 4.05 10^6/uL (4.36-5.78); RDW 13.1 % (11.8-14.1); RDW-SD 43.2 fL
[2024-11-03 14:25] LABS: ALT 44 U/L (16-63); AST 23 U/L (15-37); Albumin 3.7 g/dL (3.4-5.0); Alkaline Phosphatase 96 U/L (46-116); Anion Gap 7.7 mmol/L (3-11); BUN 16 mg/dL (7-18); Bilirubin, Total 1.08 mg/dL (0.2-1.0); CO2 29.3 mmol/L (21.0-32.0); CREATININE 0.8 mg/dL (0.70-1.30); Calcium 9.3 mg/dL (8.5-10.1); Chloride 101 mmol/L (98-107); Estimated GFR 88.91 (mL/min/1.73m2); Glucose 143 mg/dL (74-106); Potassium 3.3 mmol/L (3.5-5.1); Sodium 138 mmol/L (136-145); Total Protein 6.7 g/dL (6.4-8.2)
[2024-11-16] MEDS: Normal Saline Flush 10 ML SYR IVP (08:05)
[2024-11-16 09:17] LABS: Abs Immature Grans 0.03 10^3/uL (0.0-0.06); Absolute Basophil Count 0.03 10^3/uL (0.0-0.2); Absolute Eosinophil Count 0.15 10^3/uL (0.0-0.7); Absolute Lymphocyte Count 0.88 10^3/uL (1.2-3.4); Absolute Monocyte Count 0.14 10^3/uL (0.1-0.8); Absolute Neutrophil Count 2.92 10^3/uL (1.2-6.7); Basophils % 0.7 %; Eosinophils % 3.6 %; HCT 35.6 % (40.0-50.0); HGB 11.8 g/dL (13.5-17.5); Immature Grans % 0.7 %; Lymphocytes % 21.2 %; MCH 30.6 pg (27.0-33.0); MCHC 33.1 % (32.0-36.0); MCV 92 fL (80-95); Monocytes % 3.4 %; Neutrophils % 70.4 %; Platelet Count 118 10^3/uL (130-400); RBC 3.86 10^6/uL (4.36-5.78); RDW 13.9 % (11.8-14.1); RDW-SD 46.7 fL; WBC 4.15 10^3/uL (4.4-10.8)
[2024-11-16 09:56] LABS: ALT 50 U/L (16-63); AST 23 U/L (15-37); Albumin 3.2 g/dL (3.4-5.0); Alkaline Phosphatase 94 U/L (46-116); Anion Gap 5.4 mmol/L (3-11); BUN 11 mg/dL (7-18); Bilirubin, Total 0.65 mg/dL (0.2-1.0); CO2 30.6 mmol/L (21.0-32.0); CREATININE 0.7 mg/dL (0.70-1.30); Calcium 8.5 mg/dL (8.5-10.1); Chloride 106 mmol/L (98-107); Estimated GFR 92.57 (mL/min/1.73m2); Glucose 156 mg/dL (74-106); Potassium 3.1 mmol/L (3.5-5.1); Sodium 142 mmol/L (136-145); Total Protein 6.2 g/dL (6.4-8.2)
[2024-11-17 11:37] LABS: CA 19-9 5354 U/mL (<35)
[2024-11-23] MEDS: Normal Saline Flush 10 ML SYR IVP (09:38)
[2024-11-23 09:48] LABS: Abs Immature Grans 0.02 10^3/uL (0.0-0.06); Absolute Basophil Count 0.01 10^3/uL (0.0-0.2); Absolute Eosinophil Count 0.27 10^3/uL (0.0-0.7); Absolute Lymphocyte Count 0.66 10^3/uL (1.2-3.4); Absolute Monocyte Count 0.18 10^3/uL (0.1-0.8); Absolute Neutrophil Count 1.62 10^3/uL (1.2-6.7); Basophils % 0.4 %; Eosinophils % 9.8 %; HCT 31.9 % (40.0-50.0); HGB 10.7 g/dL (13.5-17.5); Immature Grans % 0.7 %; Lymphocytes % 23.9 %; MCH 31.2 pg (27.0-33.0); MCHC 33.5 % (32.0-36.0); MCV 93 fL (80-95); MPV 11.6 fL (8.0-11.0); Monocytes % 6.5 %; Neutrophils % 58.7 %; RBC 3.43 10^6/uL (4.36-5.78); RDW 13.8 % (11.8-14.1); WBC 2.76 10^3/uL (4.4-10.8)
[2024-11-23 10:06] LABS: ALT 37 U/L (16-63); AST 17 U/L (15-37); Albumin 3.1 g/dL (3.4-5.0); Alkaline Phosphatase 94 U/L (46-116); Anion Gap 6.6 mmol/L (3-11); BUN 11 mg/dL (7-18); Bilirubin, Total 0.98 mg/dL (0.2-1.0); CO2 32.4 mmol/L (21.0-32.0); CREATININE 0.6 mg/dL (0.70-1.30); Chloride 102 mmol/L (98-107); Estimated GFR 96.98 (mL/min/1.73m2); Glucose 129 mg/dL (74-106); Potassium 3.7 mmol/L (3.5-5.1); Sodium 141 mmol/L (136-145); Total Protein 6.3 g/dL (6.4-8.2)
[2024-11-23 10:08] LABS: Diff Comment PLT Morph Reviewed; Platelet Count 90 10^3/uL (130-400); RBC Morphology Normal
== END 2024-11-24 23:59 | disposition home or self-care (01) ==
LOC: INF 02:38
PROVIDERS: Internal Medicine Hematology & Oncology; Nurse Practitioner Adult Health; PCP Physician Assistant; Visit Provider Internal Medicine Hematology & Oncology
DX: C25.9 Malignant neoplasm of pancreas, unspecified (principal); C78.7 Secondary malignant neoplasm of liver and intrahepatic bile duct; C25.0 Malignant neoplasm of head of pancreas
CPT/HCPCS: 36591; 80053; 85025; 86301

== ENCOUNTER 2024-12-21 02:21 | Outpatient (RCR) | payer MEDICARE, BC, SELFPAY ==
[2024-12-07] MEDS: Normal Saline Flush 10 ML SYR IVP (12:35)
[2024-12-07 12:40] LABS: Abs Immature Grans 0.04 10^3/uL (0.0-0.06); Absolute Basophil Count 0.07 10^3/uL (0.0-0.2); Absolute Eosinophil Count 0.22 10^3/uL (0.0-0.7); Absolute Lymphocyte Count 0.95 10^3/uL (1.2-3.4); Absolute Monocyte Count 0.98 10^3/uL (0.1-0.8); Absolute Neutrophil Count 5.04 10^3/uL (1.2-6.7); HGB 11.8 g/dL (13.5-17.5); Immature Grans % 0.5 %; MCH 30.8 pg (27.0-33.0); MCHC 32.8 % (32.0-36.0); MCV 94 fL (80-95); MPV 11.2 fL (8.0-11.0); Monocytes % 13.4 %; Neutrophils % 69.1 %; Platelet Count 279 10^3/uL (130-400); RBC 3.83 10^6/uL (4.36-5.78); RDW 15.1 % (11.8-14.1); RDW-SD 52.1 fL
[2024-12-07 12:58] LABS: ALT 41 U/L (16-63); AST 20 U/L (15-37); Albumin 3.3 g/dL (3.4-5.0); Alkaline Phosphatase 109 U/L (46-116); Anion Gap 5.3 mmol/L (3-11); BUN 10 mg/dL (7-18); Bilirubin, Total 0.6 mg/dL (0.2-1.0); CO2 32.7 mmol/L (21.0-32.0); CREATININE 0.6 mg/dL (0.70-1.30); Calcium 8.9 mg/dL (8.5-10.1); Chloride 105 mmol/L (98-107); Estimated GFR 96.98 (mL/min/1.73m2); Glucose 124 mg/dL (74-106); Potassium 3.9 mmol/L (3.5-5.1); Sodium 143 mmol/L (136-145); Total Protein 6.5 g/dL (6.4-8.2)
[2024-12-08 12:17] LABS: CA 19-9 2439 U/mL (<35)
[2024-12-14] MEDS: Normal Saline Flush 10 ML SYR IVP (12:47)
[2024-12-14 12:51] LABS: Abs Immature Grans 0.02 10^3/uL (0.0-0.06); Absolute Basophil Count 0.06 10^3/uL (0.0-0.2); Absolute Eosinophil Count 0.15 10^3/uL (0.0-0.7); Absolute Lymphocyte Count 1.01 10^3/uL (1.2-3.4); Absolute Monocyte Count 0.23 10^3/uL (0.1-0.8); Absolute Neutrophil Count 0.98 10^3/uL (1.2-6.7); Basophils % 2.4 %; Eosinophils % 6.1 %; HCT 33.8 % (40.0-50.0); Immature Grans % 0.8 %; Lymphocytes % 41.2 %; MCH 30.6 pg (27.0-33.0); MCHC 32.5 % (32.0-36.0); MCV 94 fL (80-95); MPV 11.5 fL (8.0-11.0); Monocytes % 9.4 %; Neutrophils % 40.1 %; Platelet Count 182 10^3/uL (130-400); RBC 3.59 10^6/uL (4.36-5.78); RDW-SD 51.9 fL; WBC 2.45 10^3/uL (4.4-10.8)
[2024-12-14 13:06] LABS: Diff Comment Agrees w/ Instrument; RBC Morphology Normal
[2024-12-14 13:12] LABS: ALT 74 U/L (16-63); AST 29 U/L (15-37); Albumin 3.2 g/dL (3.4-5.0); Alkaline Phosphatase 103 U/L (46-116); Anion Gap 4.6 mmol/L (3-11); BUN 11 mg/dL (7-18); Bilirubin, Total 0.6 mg/dL (0.2-1.0); CO2 31.4 mmol/L (21.0-32.0); CREATININE 0.5 mg/dL (0.70-1.30); Chloride 105 mmol/L (98-107); Estimated GFR 102.47 (mL/min/1.73m2); Glucose 115 mg/dL (74-106); Potassium 3.9 mmol/L (3.5-5.1); Sodium 141 mmol/L (136-145); Total Protein 6.2 g/dL (6.4-8.2)
[2024-12-21] MEDS: Normal Saline Flush 10 ML SYR IVP (12:18)
[2024-12-21 12:29] LABS: Abs Immature Grans 0.01 10^3/uL (0.0-0.06); Absolute Basophil Count 0.05 10^3/uL (0.0-0.2); Absolute Eosinophil Count 0.35 10^3/uL (0.0-0.7); Absolute Lymphocyte Count 1.01 10^3/uL (1.2-3.4); Absolute Monocyte Count 0.75 10^3/uL (0.1-0.8); Absolute Neutrophil Count 3.63 10^3/uL (1.2-6.7); Basophils % 0.9 %; HCT 35.6 % (40.0-50.0); HGB 11.8 g/dL (13.5-17.5); Immature Grans % 0.2 %; Lymphocytes % 17.4 %; MCH 31.1 pg (27.0-33.0); MCHC 33.1 % (32.0-36.0); MCV 94 fL (80-95); MPV 11.2 fL (8.0-11.0); Monocytes % 12.9 %; Neutrophils % 62.6 %; Platelet Count 156 10^3/uL (130-400); RBC 3.79 10^6/uL (4.36-5.78); RDW 15.6 % (11.8-14.1)
[2024-12-21 12:53] LABS: ALT 47 U/L (16-63); AST 20 U/L (15-37); Albumin 3.2 g/dL (3.4-5.0); Alkaline Phosphatase 108 U/L (46-116); Anion Gap 3.9 mmol/L (3-11); BUN 13 mg/dL (7-18); Bilirubin, Total 0.7 mg/dL (0.2-1.0); CO2 32.1 mmol/L (21.0-32.0); CREATININE 0.7 mg/dL (0.70-1.30); Calcium 8.8 mg/dL (8.5-10.1); Chloride 106 mmol/L (98-107); Estimated GFR 92.57 (mL/min/1.73m2); Glucose 157 mg/dL (74-106); Potassium 3.6 mmol/L (3.5-5.1); Sodium 142 mmol/L (136-145); Total Protein 6.2 g/dL (6.4-8.2)
== END 2024-12-25 23:59 | disposition home or self-care (01) ==
LOC: INF 02:21
PROVIDERS: Internal Medicine Hematology & Oncology; Nurse Practitioner Adult Health; PCP Physician Assistant; Visit Provider Internal Medicine Hematology & Oncology
DX: C25.0 Malignant neoplasm of head of pancreas (principal); C78.7 Secondary malignant neoplasm of liver and intrahepatic bile duct; E87.6 Hypokalemia; E83.42 Hypomagnesemia
CPT/HCPCS: 36591; 80053; 83735; 85025; 86301

== ENCOUNTER 2025-01-18 01:54 | Outpatient (RCR) | payer MEDICARE, BC, SELFPAY ==
[2025-01-04 11:01] LABS: Abs Immature Grans 0.01 10^3/uL (0.0-0.06); Absolute Basophil Count 0.03 10^3/uL (0.0-0.2); Absolute Eosinophil Count 0.26 10^3/uL (0.0-0.7); Absolute Monocyte Count 0.76 10^3/uL (0.1-0.8); Absolute Neutrophil Count 3.04 10^3/uL (1.2-6.7); Basophils % 0.6 %; Eosinophils % 5.3 %; HCT 34.9 % (40.0-50.0); HGB 11.7 g/dL (13.5-17.5); Immature Grans % 0.2 %; Lymphocytes % 16.3 %; MCH 31.3 pg (27.0-33.0); MCHC 33.5 % (32.0-36.0); MCV 93 fL (80-95); MPV 11.6 fL (8.0-11.0); Monocytes % 15.5 %; Neutrophils % 62.1 %; Platelet Count 141 10^3/uL (130-400); RBC 3.74 10^6/uL (4.36-5.78); RDW 15.7 % (11.8-14.1); RDW-SD 53.6 fL
[2025-01-04] MEDS: Normal Saline Flush 10 ML SYR IVP (11:06)
[2025-01-04 11:24] LABS: ALT 37 U/L (16-63); AST 17 U/L (15-37); Albumin 3.4 g/dL (3.4-5.0); Alkaline Phosphatase 109 U/L (46-116); BUN 12 mg/dL (7-18); CREATININE 0.7 mg/dL (0.70-1.30); Calcium 8.9 mg/dL (8.5-10.1); Chloride 105 mmol/L (98-107); Estimated GFR 92.57 (mL/min/1.73m2); Glucose 108 mg/dL (74-106); Potassium 3.9 mmol/L (3.5-5.1); Sodium 142 mmol/L (136-145); Total Protein 6.4 g/dL (6.4-8.2)
[2025-01-05 10:29] LABS: CA 19-9 1280 U/mL (<35)
[2025-01-18 13:32] LABS: Abs Immature Grans 0.01 10^3/uL (0.0-0.06); Absolute Basophil Count 0.04 10^3/uL (0.0-0.2); Absolute Eosinophil Count 0.23 10^3/uL (0.0-0.7); Absolute Lymphocyte Count 0.89 10^3/uL (1.2-3.4); Absolute Monocyte Count 0.67 10^3/uL (0.1-0.8); Absolute Neutrophil Count 2.77 10^3/uL (1.2-6.7); Basophils % 0.9 %; HCT 34.6 % (40.0-50.0); HGB 11.3 g/dL (13.5-17.5); Immature Grans % 0.2 %; Lymphocytes % 19.3 %; MCH 31.3 pg (27.0-33.0); MCHC 32.7 % (32.0-36.0); MCV 96 fL (80-95); MPV 11.7 fL (8.0-11.0); Monocytes % 14.5 %; Neutrophils % 60.1 %; Platelet Count 145 10^3/uL (130-400); RBC 3.61 10^6/uL (4.36-5.78); RDW 15.1 % (11.8-14.1); RDW-SD 53.1 fL; WBC 4.61 10^3/uL (4.4-10.8)
[2025-01-18 13:43] LABS: ALT 33 U/L (16-63); AST 21 U/L (15-37); Albumin 3.4 g/dL (3.4-5.0); Alkaline Phosphatase 101 U/L (46-116); BUN 11 mg/dL (7-18); Bilirubin, Total 0.8 mg/dL (0.2-1.0); CREATININE 0.7 mg/dL (0.70-1.30); Calcium 8.7 mg/dL (8.5-10.1); Chloride 107 mmol/L (98-107); Estimated GFR 92.57 (mL/min/1.73m2); Glucose 127 mg/dL (74-106); Potassium 3.9 mmol/L (3.5-5.1); Sodium 144 mmol/L (136-145); Total Protein 6.3 g/dL (6.4-8.2)
[2025-01-18] MEDS: Normal Saline Flush 10 ML SYR IVP (14:20)
[2025-01-19 10:24] LABS: CA 19-9 561 U/mL (<35)
== END 2025-01-24 23:59 | disposition home or self-care (01) ==
LOC: INF 01:54
PROVIDERS: PCP Physician Assistant; Visit Provider Internal Medicine Hematology & Oncology
DX: C25.0 Malignant neoplasm of head of pancreas (principal); Z45.2 Encounter for adjustment and management of vascular access device
CPT/HCPCS: 36591; 80053; 85025; 86301

== ENCOUNTER 2025-01-29 01:29 | Outpatient (CLI) | payer MEDICARE, BC, SELFPAY ==
--- NOTE | 2025-01-29 | DI.CT_ITS ---
Exam(s) CT CHEST/ABD/PEL W EXAM: CT CHEST/ABD/PEL W CLINICAL HISTORY: Pancreatic CA metastasized to liver, C25.9, C78.7; eval treatment response. TECHNIQUE: Imaging Protocol: Axial computed tomography images with coronal and sagittal reformatted images were created and reviewed. Computer aided detection (CAD) was utilized. CONTRAST MATERIAL: Intravenous: Omnipaque 350 Contrast volume:100 ml Oral: yes 900 mL COMPARISON: CT CT ABDOMEN PELVIS W from 03/17/[address] ABDOMEN PELVIS W from 09/13/2024 FINDINGS: CHEST: Pulmonary parenchyma: No consolidation. No dominant measurable mass. Stable small pleural based no dule at the medial right lung base. Stable small nodule posterior left lung base. Tracheobronchial tree: No bronchiectasis. No mucous plugging.No bronchial wall thickening. Pleura: No effusion or pneumothorax. Mediastinum: Within normal limits. Pulmonary arteries: No visible emboli. Cardiovascular: Heart is mildly enlarged. Coronary artery calcifications are seen. No pericardial e ffusion. Thoracic aorta non-dilated. Bones: Unremarkable for age. No lytic or blastic lesions.No compression fractures. Soft tissues: Port over right pectoral muscle. Mild bilateral gynecomastia. ABDOMEN and PELVIS: Liver: Normal density. No suspicious mass. Gallbladder and biliary tract: Cholecystectomy. No biliary dilatation. Pancreas: Decreased conspicuity of previously noted of ill-defined invasive appearing mass at the yoder creatic head. Some vascular attenuation remains present of the portal vein and portions branches of t he SMA and celiac axis. Stable dilatation of pancreatic duct. Pancreatic tail now appears slightly at rophied. Spleen: Normal. Kidneys: Normal size, contour and axis. Nonobstructing stone mid right kidney. Parapelvic cysts lower pole left kidney. No obstructive uropathy. No suspicious masses seen. Adrenal glands: Stable tiny nodule at the left adrenal gland. Aorta: Abdominal portion non-dilated. Lymph nodes: Within normal limits. Soft tissues: Unremarkable. Bladder: Nearly empty. Question wall thickening. Bowel: No obstruction or bowel wall thickening. Sigmoid diverticulosis. Peritoneal cavity: Small amount of fluid low in the pelvis, not seen previously.. No focal collection . No mesenteric inflammatory response. No free air. Bones: Unremarkable for age. Reproductive organs: Markedly enlarged prostate. Bilateral hydroceles. IMPRESSION: Chest: Stable pulmonary nodules at the lung bases. Abdomen pelvis: No detectable change in ill-defined mass at the head of the pancreas with vascular en casement and narrowing of branches of the SMA and celiac axis as well as proximal portal vein. No vis ible liver metastases. No adenopathy. RADIATION DOSE DELIVERED: Total DLP DATA REPOSITORY: All CT scans at this facility are submitted to the National Radiology Data Registry (NRDR) Dose Index Registry (DIR) with the [employer] (ACR). RADIATION OPTIMIZATION: All CT scans at this facility use at least one of these dose optimization te chniques: automated exposure control; mA and/or kV adjustment per patient size (includes targeted exa ms where dose is matched to clinical indication); or iterative reconstruction.
[2025-01-29] MEDS: Barium Sulfate 2% W/V-Berry Smoothie 450 ML BTL PO ×2 (10:55→10:56)
[2025-01-29] MEDS: Omnipaque 350 MG/ML 100 ML BTL IJ (12:49)
[2025-01-29] MEDS: Normal Saline - Diluent 50 ML VIAL IJ (12:50)
== END 2025-01-29 01:49 ==
LOC: DI 01:29
PROVIDERS: PCP Physician Assistant; Visit Provider Nurse Practitioner Family
DX: C25.9 Malignant neoplasm of pancreas, unspecified (principal); C78.7 Secondary malignant neoplasm of liver and intrahepatic bile duct; C25.0 Malignant neoplasm of head of pancreas
CPT/HCPCS: 36591; 74177; 80053; 71260; 85025; 86301; J3490

== ENCOUNTER 2025-02-01 11:10 | Outpatient (CLI) | payer MEDICARE, BC, SELFPAY ==
--- NOTE | 2025-02-01 | DI.US_ITS ---
Exam(s) US EXTREMITY VENOUS BI EXAM: US EXTREMITY VENOUS BI CLINICAL HISTORY: PRIMARY PANCREATIC CA WITH METS TO OTHER SITES,NOW BILAT LOWER EXT EDEMA, ? TECHNIQUE: Grayscale, color, and doppler imaging of the deep venous system of both lower extremities was performed. COMPARISON: US US ABDOMEN from 03/17/2024 FINDINGS: There is no evidence of intraluminal thrombus and there is normal compression and augmentation demons trated within the common femoral veins, femoral veins, and popliteal veins of both lower extremities. In the calves the interrogated veins also exhibit normal compression/ augmentation properties. The greater saphenous veins also appear patent as do the saphenofemoral junctions bilaterally.. IMPRESSION: 1. No ultrasound evidence of DVT in either lower extremity. DATA REPOSITORY:
== END 2025-02-01 11:30 ==
LOC: DI 11:10
PROVIDERS: PCP Physician Assistant; Visit Provider Internal Medicine Hematology & Oncology
DX: R60.0 Localized edema (principal)
CPT/HCPCS: 93970

== ENCOUNTER 2025-02-15 02:47 | Outpatient (RCR) | payer MEDICARE, BC, SELFPAY ==
[2025-01-29] MEDS: Normal Saline Flush 10 ML SYR IVP (11:00)
[2025-01-29 11:32] LABS: Abs Immature Grans 0.01 10^3/uL (0.0-0.06); Absolute Basophil Count 0.03 10^3/uL (0.0-0.2); Absolute Eosinophil Count 0.11 10^3/uL (0.0-0.7); Absolute Lymphocyte Count 0.68 10^3/uL (1.2-3.4); Absolute Monocyte Count 0.33 10^3/uL (0.1-0.8); Absolute Neutrophil Count 2.49 10^3/uL (1.2-6.7); Basophils % 0.8 %; HCT 33.5 % (40.0-50.0); HGB 11.2 g/dL (13.5-17.5); Immature Grans % 0.3 %; Lymphocytes % 18.6 %; MCH 31.2 pg (27.0-33.0); MCHC 33.4 % (32.0-36.0); MCV 93 fL (80-95); MPV 12.1 fL (8.0-11.0); Neutrophils % 68.3 %; Platelet Count 132 10^3/uL (130-400); RBC 3.59 10^6/uL (4.36-5.78); RDW-SD 51.9 fL; WBC 3.65 10^3/uL (4.4-10.8)
[2025-01-29 11:54] LABS: ALT 36 U/L (16-63); AST 24 U/L (15-37); Albumin 3.5 g/dL (3.4-5.0); Alkaline Phosphatase 94 U/L (46-116); Anion Gap 5.1 mmol/L (3-11); BUN 12 mg/dL (7-18); Bilirubin, Total 0.6 mg/dL (0.2-1.0); CO2 29.9 mmol/L (21.0-32.0); CREATININE 0.6 mg/dL (0.70-1.30); Calcium 9.1 mg/dL (8.5-10.1); Chloride 107 mmol/L (98-107); Estimated GFR 96.38 (mL/min/1.73m2); Glucose 110 mg/dL (74-106); Potassium 3.7 mmol/L (3.5-5.1); Sodium 142 mmol/L (136-145); Total Protein 6.4 g/dL (6.4-8.2)
[2025-01-29 19:18] LABS: CA 19-9 487 U/mL (<35)
[2025-02-15] MEDS: Normal Saline Flush 10 ML SYR IVP (09:41)
[2025-02-15 09:46] LABS: Abs Immature Grans 0.01 10^3/uL (0.0-0.06); Absolute Basophil Count 0.04 10^3/uL (0.0-0.2); Absolute Eosinophil Count 0.17 10^3/uL (0.0-0.7); Absolute Lymphocyte Count 0.68 10^3/uL (1.2-3.4); Absolute Monocyte Count 0.45 10^3/uL (0.1-0.8); Absolute Neutrophil Count 2.38 10^3/uL (1.2-6.7); Basophils % 1.1 %; Eosinophils % 4.6 %; HCT 33.3 % (40.0-50.0); HGB 10.9 g/dL (13.5-17.5); Immature Grans % 0.3 %; Lymphocytes % 18.2 %; MCH 30.6 pg (27.0-33.0); MCHC 32.7 % (32.0-36.0); MCV 94 fL (80-95); MPV 11.2 fL (8.0-11.0); Monocytes % 12.1 %; Neutrophils % 63.7 %; Platelet Count 145 10^3/uL (130-400); RBC 3.56 10^6/uL (4.36-5.78); RDW-SD 51.4 fL; WBC 3.73 10^3/uL (4.4-10.8)
[2025-02-15 09:59] LABS: ALT 33 U/L (16-63); AST 21 U/L (15-37); Albumin 3.3 g/dL (3.4-5.0); Alkaline Phosphatase 96 U/L (46-116); Anion Gap 4.8 mmol/L (3-11); BUN 16 mg/dL (7-18); Bilirubin, Total 0.9 mg/dL (0.2-1.0); CO2 29.2 mmol/L (21.0-32.0); CREATININE 0.8 mg/dL (0.70-1.30); Calcium 8.7 mg/dL (8.5-10.1); Chloride 106 mmol/L (98-107); Estimated GFR 88.36 (mL/min/1.73m2); Glucose 184 mg/dL (74-106); Potassium 3.8 mmol/L (3.5-5.1); Sodium 140 mmol/L (136-145); Total Protein 6.3 g/dL (6.4-8.2)
[2025-02-16 10:34] LABS: CA 19-9 439 U/mL (<35)
== END 2025-02-24 23:59 | disposition home or self-care (01) ==
LOC: INF 02:47
PROVIDERS: PCP Physician Assistant; Visit Provider Internal Medicine Hematology & Oncology
DX: C25.0 Malignant neoplasm of head of pancreas (principal); C78.7 Secondary malignant neoplasm of liver and intrahepatic bile duct; Z45.2 Encounter for adjustment and management of vascular access device
CPT/HCPCS: 36591; 80053; 85025; 86301

== ENCOUNTER 2025-03-15 00:49 | Outpatient (RCR) | payer MEDICARE, BC, SELFPAY ==
[2025-03-01] MEDS: Normal Saline Flush 10 ML SYR IVP (10:46)
[2025-03-01 10:56] LABS: Abs Immature Grans 0.01 10^3/uL (0.0-0.06); Absolute Basophil Count 0.04 10^3/uL (0.0-0.2); Absolute Eosinophil Count 0.22 10^3/uL (0.0-0.7); Absolute Lymphocyte Count 0.74 10^3/uL (1.2-3.4); Absolute Monocyte Count 0.72 10^3/uL (0.1-0.8); Absolute Neutrophil Count 2.19 10^3/uL (1.2-6.7); Eosinophils % 5.6 %; HCT 33.1 % (40.0-50.0); HGB 10.5 g/dL (13.5-17.5); Immature Grans % 0.3 %; Lymphocytes % 18.9 %; MCH 29.4 pg (27.0-33.0); MCHC 31.7 % (32.0-36.0); MCV 93 fL (80-95); MPV 11.5 fL (8.0-11.0); Monocytes % 18.4 %; Neutrophils % 55.8 %; Platelet Count 141 10^3/uL (130-400); RBC 3.57 10^6/uL (4.36-5.78); RDW 15.1 % (11.8-14.1); RDW-SD 51.8 fL; WBC 3.92 10^3/uL (4.4-10.8)
[2025-03-01 11:11] LABS: ALT 31 U/L (16-63); AST 25 U/L (15-37); Albumin 3.3 g/dL (3.4-5.0); Alkaline Phosphatase 102 U/L (46-116); Anion Gap 5.9 mmol/L (3-11); BUN 12 mg/dL (7-18); CO2 30.1 mmol/L (21.0-32.0); CREATININE 0.6 mg/dL (0.70-1.30); Calcium 8.6 mg/dL (8.5-10.1); Chloride 106 mmol/L (98-107); Estimated GFR 96.38 (mL/min/1.73m2); Glucose 123 mg/dL (74-106); Potassium 3.9 mmol/L (3.5-5.1); Sodium 142 mmol/L (136-145); Total Protein 6.1 g/dL (6.4-8.2)
[2025-03-02 09:08] LABS: CA 19-9 442 U/mL (<35)
[2025-03-15 11:09] LABS: Abs Immature Grans 0.01 10^3/uL (0.0-0.06); Absolute Basophil Count 0.05 10^3/uL (0.0-0.2); Absolute Eosinophil Count 0.22 10^3/uL (0.0-0.7); Absolute Lymphocyte Count 0.86 10^3/uL (1.2-3.4); Absolute Monocyte Count 0.83 10^3/uL (0.1-0.8); Absolute Neutrophil Count 4.71 10^3/uL (1.2-6.7); Basophils % 0.7 %; Eosinophils % 3.3 %; HCT 34.1 % (40.0-50.0); HGB 11.1 g/dL (13.5-17.5); Immature Grans % 0.1 %; Lymphocytes % 12.9 %; MCH 29.2 pg (27.0-33.0); MCHC 32.6 % (32.0-36.0); MCV 90 fL (80-95); MPV 12.1 fL (8.0-11.0); Monocytes % 12.4 %; Neutrophils % 70.6 %; Platelet Count 145 10^3/uL (130-400); RDW 15.2 % (11.8-14.1); RDW-SD 49.8 fL; WBC 6.68 10^3/uL (4.4-10.8)
[2025-03-15 11:23] LABS: ALT 33 U/L (16-63); AST 20 U/L (15-37); Albumin 3.2 g/dL (3.4-5.0); Alkaline Phosphatase 109 U/L (46-116); Anion Gap 3.7 mmol/L (3-11); BUN 11 mg/dL (7-18); CO2 31.3 mmol/L (21.0-32.0); CREATININE 0.6 mg/dL (0.70-1.30); Calcium 8.8 mg/dL (8.5-10.1); Chloride 104 mmol/L (98-107); Estimated GFR 96.38 (mL/min/1.73m2); Glucose 134 mg/dL (74-106); Potassium 3.7 mmol/L (3.5-5.1); Sodium 139 mmol/L (136-145); Total Protein 6.4 g/dL (6.4-8.2)
[2025-03-15] MEDS: Normal Saline Flush 10 ML SYR IVP (11:33)
[2025-03-16 10:26] LABS: CA 19-9 527 U/mL (<35)
== END 2025-03-26 23:59 | disposition home or self-care (01) ==
LOC: INF 00:49
PROVIDERS: PCP Physician Assistant; Visit Provider Internal Medicine Hematology & Oncology
DX: C25.0 Malignant neoplasm of head of pancreas (principal); Z45.2 Encounter for adjustment and management of vascular access device
CPT/HCPCS: 36591; 80053; 85025; 86301

== ENCOUNTER 2025-03-22 10:09 | Emergency (ER) | payer MEDICARE, BC, SELFPAY ==
[2025-03-22] VITALS (28 sets, daily range): BP systolic 122–149; BP diastolic 41–73; PULSE 57–80; RESP 10–24; TEMP 34.9–37; O2SAT 89–96
[2025-03-22 10:37] LABS: Abs Immature Grans 0.08 10^3/uL (0.0-0.06); Absolute Monocyte Count 0.46 10^3/uL (0.1-0.8); Basophils % 0.2 %; HCT 32.6 % (40.0-50.0); HGB 11.1 g/dL (13.5-17.5); Immature Grans % 0.6 %; Lymphocytes % 3.9 %; MCH 30.6 pg (27.0-33.0); MCV 90 fL (80-95); MPV 12.2 fL (8.0-11.0); Monocytes % 3.6 %; Neutrophils % 91.7 %; Platelet Count 168 10^3/uL (130-400); RBC 3.63 10^6/uL (4.36-5.78); RDW 15.8 % (11.8-14.1); RDW-SD 51.4 fL; WBC 12.66 10^3/uL (4.4-10.8)
[2025-03-22 10:38] LABS: Absolute Basophil Count 0.03 10^3/uL (0.0-0.2); Absolute Lymphocyte Count 0.49 10^3/uL (1.2-3.4); Absolute Neutrophil Count 11.61 10^3/uL (1.2-6.7)
[2025-03-22 10:40] LABS: Lactate 2.4 mmol/L (<or=2.0)
[2025-03-22] MEDS: Normal Saline 1,000 ML 150 ML IV (11:02)
[2025-03-22 11:11] LABS: ALT 41 U/L (16-63); AST 34 U/L (15-37); Albumin 3.4 g/dL (3.4-5.0); Alkaline Phosphatase 101 U/L (46-116); Anion Gap 9.5 mmol/L (3-11); BUN 23 mg/dL (7-18); Bilirubin, Total 1.8 mg/dL (0.2-1.0); CO2 26.5 mmol/L (21.0-32.0); CREATININE 0.7 mg/dL (0.70-1.30); Calcium 8.7 mg/dL (8.5-10.1); Chloride 107 mmol/L (98-107); Glucose 154 mg/dL (74-106); Lipase 20 U/L (<78); Magnesium 2.1 mg/dL (1.8-2.4); Potassium 3.1 mmol/L (3.5-5.1); Sodium 143 mmol/L (136-145); Total Protein 6.2 g/dL (6.4-8.2)
[2025-03-22] MEDS: POTASSIUM CHLORIDE 10 MEQ/100 ML BAG 100 MEQ IV_INF ×2 (11:30→13:31)
[2025-03-22] MEDS: Normal Saline - Diluent 50 ML VIAL IJ (11:42)
[2025-03-22] MEDS: Omnipaque 350 MG/ML 500 ML BTL-Imaging package 75 ML IJ (11:43)
--- NOTE | 2025-03-22 12:03 | DI.CT_ITS ---
Exam(s) CT ABDOMEN PELVIS W EXAM: CT ABDOMEN PELVIS W CLINICAL HISTORY: pancreatic CA; ABD pain diarrhea. TECHNIQUE: Imaging Protocol: Axial computed tomography images with coronal and sagittal reformatted images were created and reviewed CONTRAST MATERIAL: Intravenous: Omnipaque 350 Contrast volume:75 ml Oral: no COMPARISON: CT CT CHEST/ABD/PEL W from 01/29/2025 FINDINGS: ABDOMEN and PELVIS: Lung Bases: New tiny bilateral pleural effusions. Adjacent dependent changes. Small hiatal hernia. Liver: Normal density. No suspicious mass. Gallbladder and biliary tract: Cholecystectomy. Stable mild biliary dilatation. Pancreas: Ill-defined mass again noted in the body of the pancreas with attenuation of adjacent vessels, at the level of the portal vein.. There is now bland thrombus versus tumor thrombus seen within the portal vein extending into the main hepatic veins. The evaluation is somewhat limited due to mild artifact from motion. No thrombus is seen within mesenteric veins. Spleen: Normal. Splenic artery and vein appear patent. Kidneys: Normal size, contour and axis. Bilateral nonobstructing renal calculi. No obstructive uropathy. No suspicious masses seen. Adrenal glands: Stable small nodule in or adjacent to the left adrenal gland. Vasculature: Abdominal aorta non-dilated. Soft tissues: Mild bilateral gynecomastia. Area of soft tissue nodularity again noted in the midline of the abdominal wall just below the level of the umbilicus. Appears stable in size were there is increased edema in the subcutaneous fat in the region of the umbilicus. Bladder: No gross wall thickening. No calculi.No focal mass. Bowel: No obstruction. Marked wall thickening of the colon from the level of the cecum through mid descending colon, consistent with colitis. There is diverticulosis of the distal descending and sigmoid colon but no evidence of diverticulitis. The majority of the colon is collapsed. There is a small amount of stool in the sigmoid region and some fluid in the rectum. Appendix normal. Peritoneal cavity: Ascites now present around liver and spleen as well as in the right lower quadrant and low pelvis. This has increased when compared the prior exam. No focal collection. No mesenteric inflammatory response. No free air. Bones: No gross evidence of metastatic lesions. Reproductive organs: Prostate is enlarged. Lymph nodes: No pathologically enlarged lymph nodes. IMPRESSION:: Marked wall thickening of the colon from the cecum through the mid descending colon, consistent with colitis. Increased ascites. Roughly stable size of pancreatic mass however there is thrombus noted within the portal vein with extension into the hepatic veins. Tiny bilateral pleural effusions and adjacent atelectasis. Findings discussed with the ER provider. RADIATION DOSE DELIVERED: Total DLP DATA REPOSITORY: All CT scans at this facility are submitted to the National Radiology Data Registry (NRDR) Dose Index Registry (DIR) with the [employer] (ACR). RADIATION OPTIMIZATION: All CT scans at this facility use at least one of these dose optimization techniques: automated exposure control; mA and/or kV adjustment per patient size (includes targeted exams where dose is matched to clinical indication); or iterative reconstruction.
--- NOTE | 2025-03-22 12:30 | W.ED.GENAD ---
Discharge Plan Discharge Details Chief Complaint: Abd Prob Primary Care Provider: Chidi Moreno ED Provider: Marciano Harper Home Meds and New Rx's Prescriptions: No Action losartan-hydrochlorothiazide [Hyzaar] 1 EACH tablet 0.5 tab-cap PO DAILY amlodipine 10 mg tablet 5 mg PO DAILY Patient Comments: [place] [facility] fluticasone propionate [Flonase Allergy Relief] 50 mcg/actuation spray,suspension 2 spray intranasal DAILY Rx Instructions: administer into each nostril budesonide-formoterol [Symbicort] 160-4.5 mcg/actuation HFA aerosol inhaler 1 inh inhalation ONCE PRN azelastine 137 mcg (0.1 %) aerosol,spray 1 spray intranasal BID PRN Rx Instructions: administer into each nostril omeprazole 20 mg capsule,delayed release(DR/EC) See Rx Instructions .ROUTE .COMPLEX Qty: 90 0RF Dose Instruction: Take 1 capsule by mouth once daily Rx Instructions: Take 1 capsule by mouth once daily lorazepam 0.5 mg tablet 0.5 mg PO Q6H PRN potassium chloride 20 mEq tablet,ER particles/crystals 20 meq PO DAILY acetaminophen 325 mg capsule 650 mg PO Q4H PRN triamcinolone acetonide 0.1 % cream 1 applic TOPICAL ONCE PRN Patient Comments: APPLY CREAM TOPICALLY TO THE AFFECTED AREA(S) OF RASH ON BUTTOCKS TWICE DAILY lidocaine-prilocaine 2.5-2.5 % cream 1 applic topical ONCE PRN Creon 24,000-76,000 -120,000 unit capsule,delayed release(DR/EC) 3 cap PO TID Rx Instructions: administer with meals and/or snacks tamsulosin 0.4 mg capsule 0.4 mg PO DAILY Patient Comments: [place] [facility] Instructions: Note dosage increase HPI General Date/Time Provider Initiated Documentation: 03/22/25 10:16. HPI Narrative: 80-year-old male presents by EMS for some abdominal pain in the central lower abdomen and diarrhea this morning, he states he was dealing with some constipation for the past couple days and took a stool softener, he has a history of stage IV pancreatic cancer just had chemotherapy on Wednesday, he is not anticoagulated. [place] [facility] [place], states his pain is fairly mild as far as abdominal pain goes and he denies nausea/vomiting, denies fever. His endorses that he has been sleeping a lot lately. Related Data Home Medications ?Medication ?Instructions ?Recorded ?Confirmed losartan 100 0.5 tab-cap PO DAILY 03/07/13 03/22/25 mg-hydrochlorothiazide 25 mg tablet (Hyzaar) amlodipine 10 mg tablet 5 mg PO DAILY 11/29/23 03/22/25 budesonide-formoterol HFA 160 1 inh inhalation ONCE PRN 11/29/23 03/22/25 mcg-4.5 mcg/actuation aerosol inhaler (Symbicort) fluticasone propionate 50 2 spray intranasal DAILY 11/29/23 03/22/25 mcg/actuation nasal spray,suspension (Flonase Allergy Relief) azelastine 137 mcg (0.1 %) nasal 1 spray intranasal BID PRN 01/12/24 03/22/25 spray omeprazole 20 mg capsule,delayed See Rx Instructions .Route 11/13/24 03/22/25 release .COMPLEX #90 caps acetaminophen 325 mg capsule 650 mg PO Q4H PRN 03/22/25 03/22/25 lidocaine-prilocaine 2.5 %-2.5 % 1 applic topical ONCE PRN 03/22/25 03/22/25 topical cream [id number] 3 cap PO TID 03/22/25 03/22/25 24,000-76,000-120,000 unit capsule,delayed rel (Creon) lorazepam 0.5 mg tablet 0.5 mg PO Q6H PRN 03/22/25 03/22/25 potassium chloride 20 mEq 20 meq PO DAILY 03/22/25 03/22/25 tablet,extended release(part/cryst) tamsulosin 0.4 mg capsule 0.4 mg PO DAILY 03/22/25 03/22/25 triamcinolone acetonide 0.1 % 1 applic topical ONCE PRN 03/22/25 03/22/25 topical cream Previous Rx's ?Medication ?Instructions ?Recorded omeprazole 20 mg capsule,delayed See Rx Instructions .Route 11/13/24 release .COMPLEX #90 caps Allergies Allergy/AdvReac Type Severity Reaction Status Date / Time grass Allergy Intermediate Unknown Uncoded 07/03/24 13:01 mold Allergy Unknown Unknown Uncoded 07/03/24 13:01 General Stated Complaint: Abd Prob CINTIA: 3 Exam Narrative Exam Narrative: GENERAL APPEARANCE: Fatigued, non-toxic, awake and alert, atraumatic, mild acute distress. SKIN: Warm, pale, dry, intact, without rashes/lesions/ulcerations. HEAD: Normocephalic, atraumatic, normal hair distribution for gender/age. EYES: Normal conjunctiva, no exudates on lids/lashes. ENT: Nares patent, no circumoral cyanosis, no facial swelling NECK: Supple, trachea midline, painless cervical ROM. LUNGS/CHEST: Lungs CTA bilaterally- no rhonchi/rales/wheezes diffusely, non-labored respirations, normal A/P diameter, symmetrical expansion, no chest wall deformity HEART (CV/PV): Regular rate and rhythm without murmur, no peripheral edema, no JVD. ABDOMEN: Soft, non-distended, no guarding, mild lower abdominal tenderness without rebound tenderness, negative Dsouza's sign, no CVA tenderness to percussion bilaterally. MSK: Normal ROM, no swelling/deformity to bilateral UEs or LEs, moving all extremities without weakness, no cyanosis, spine midline without tenderness, normal curvature. NEURO: Mental Status AAOx4 - alert to person, place, time, events No facial droop, no forehead involvement. Motor: No focal weakness - strength 5/5 in bilateral UEs and LEs, proximal and distal, symmetric. Sensory: sensation intact to light touch globally. Gait NT. PSYCH: euthymic, cooperative, pleasant, appropriate speech Course Vital Signs Vital signs: Vital Signs Temperature 34.9 C L 03/22/25 10:10 Pulse 61 03/22/25 10:10 Respiratory Rate 24 03/22/25 10:10 Blood Pressure 143/45 H 03/22/25 10:10 Pulse Oximetry 92 03/22/25 10:10 Temperature 34.9 C L 03/22/25 10:48 Temperature Source Tympanic 03/22/25 10:10 Pulse 61 03/22/25 10:48 Respiratory Rate 24 03/22/25 10:48 Blood Pressure 143/45 H 03/22/25 10:48 Blood Pressure Position Sitting 03/22/25 10:10 Pulse Oximetry 92 03/22/25 10:48 Oxygen Delivery Method Room Air 03/22/25 10:48 Oxygen Flow Rate 0 03/22/25 10:10 Lab/Test Results Lab/Test Results: Laboratory Tests Range/Units 03/22/25 10:21 WBC (4.4-10.8) 10^3/uL 12.66 H RBC (4.36-5.78) 10^6/uL 3.63 L Hgb (13.5-17.5) g/dL 11.1 L Hct (40.0-50.0) % 32.6 L MCV (80-95) fL 90 MCH (27.0-33.0) pg 30.6 MCHC (32.0-36.0) % 34.0 RDW (11.8-14.1) % 15.8 H Plt Count (130-400) 10^3/uL 168 MPV (8.0-11.0) fL 12.2 H Immature Gran % % 0.6 Neutrophils % % 91.7 Lymphocytes % % 3.9 Monocytes % % 3.6 Eosinophils % % 0.0 Basophils % % 0.2 Nucleated RBC % (0.0-0.3) % 0.0 Absolute Neutrophils (1.2-6.7) 10^3/uL 11.61 H Absolute Lymphocytes (1.2-3.4) 10^3/uL 0.49 L Absolute Monocytes (0.1-0.8) 10^3/uL 0.46 Absolute Eosinophils (0.0-0.7) 10^3/uL 0.00 Absolute Basophils (0.0-0.2) 10^3/uL 0.03 VBG Lactate (<or=2.0) mmol/L 2.4 H* Sodium (136-145) mmol/L 143 Potassium (3.5-5.1) mmol/L 3.1 L Chloride (98-107) mmol/L 107 Carbon Dioxide (21.0-32.0) mmol/L 26.5 Anion Gap (3-11) mmol/L 9.5 BUN (7-18) mg/dL 23 H Creatinine (0.70-1.30) mg/dL 0.7 Est GFR (CKD-EPI 2020) (mL/min/1.73m2) 92.00 Glucose (74-106) mg/dL 154 H Calcium (8.5-10.1) mg/dL 8.7 Magnesium (1.8-2.4) mg/dL 2.1 Total Bilirubin (0.2-1.0) mg/dL 1.8 H AST (15-37) U/L 34 ALT (16-63) U/L 41 Alkaline Phosphatase (46-116) U/L 101 Total Protein (6.4-8.2) g/dL 6.2 L Albumin (3.4-5.0) g/dL 3.4 Lipase (<78) U/L 20 Medical Decision Making This dictation utilizes [id number] dictation software and may contain unedited grammatical errors. 80-year-old male presents by EMS for some abdominal pain in the central lower abdomen and diarrhea this morning, he states he was dealing with some constipation for the past couple days and took a stool softener, he has a history of stage IV pancreatic cancer just had chemotherapy on Wednesday, he is not anticoagulated. [place] [facility] [place], states his pain is fairly mild as far as abdominal pain goes and he denies nausea/vomiting, denies fever. His endorses that he has been sleeping a lot lately. Patients' medical history: Stage IV pancreatic cancer, diverticulosis, hypertension, status post cholecystectomy, GERD, pancreatitis, alcohol abuse. Family and social history: Noncontributory, lives at home with , no sick contacts. Pertinent exam findings / vital signs include mild diffuse lower abdominal tenderness without focality or rebound tenderness, negative Dsouza's, no CVA tenderness to percussion bilaterally, benign cardiopulmonary status. Differential / pathologies of concern include metastasis, viral gastroenteritis, . Diagnostic studies of: - CBC, CMP, lactate, magnesium, lipase, CT ABD/pelvis W contrast, EKG. - CBC shows WBCs of 12.6 without left shift - Lactate is 2.4 likely in the setting of GI losses and mild dehydration - BUN slightly elevated at 23 - Mild hypokalemia, 3.1 > repleting - Magnesium WNL - LFTs w/o acute abnormality - Lipase WNL - CT shows marked wall thickening throughout the entire colon consistent with colitis, mildly increased ascites, hepatic vein thrombus - EKG shows no signs of ischemia Interventions of: [place] [place] [facility] [place] [id number] findings of pancreatic mass with possible invasion to hepatic vein vs thrombus as discussed with Dr. Altamirano, discuss diffuse colitis consistent with viral gastroenteritis vs need for blood cx's / OBS / antibiotics. ED Course/Assessment/Plan: 80-year-old male with lower abdominal pain undergoing chemotherapy for stage IV pancreatic cancer presents for diarrhea since this morning, he did take a stool softener yesterday, he has diffuse colon thickening consistent with colitis, this may be a viral gastroenteritis passing through his system, he has no left shift but does have a white count. He does have some evidence of thrombus but also in discussion with radiologist this could be further invasion of his tumor in the hepatic veins and portal vein, I have put a page out to [facility] [place] to discuss these findings to make sure that they are reasonable for disposition home, I defer to them if they want blood cultures as the patient is on chemotherapy but has many possible reasons to have mild leukocytosis including GI losses and diarrhea. Patient signed out to oncoming provider at shift change.. Disposition of Diarrhea, Pancreatic Tumor. Patient verbalized understanding of the plan and return to ED criteria and engaged in shared decision making. Medical Records Medical records reviewed: Yes I reviewed the patient's medical records. Imaging Data Radiologic Study: Attestation: I personally reviewed and interpreted this imaging study as follows: Imaging: CT Scan Radiologist's impression: EXAM: CT ABDOMEN PELVIS W CLINICAL HISTORY: pancreatic CA; ABD pain diarrhea. TECHNIQUE: Imaging Protocol: Axial computed tomography images with coronal and sagittal reformatted images were created and reviewed CONTRAST MATERIAL: Intravenous: Omnipaque 350 Contrast volume:75 ml Oral: no COMPARISON: CT CT CHEST/ABD/PEL W from 01/29/2025 FINDINGS: ABDOMEN and PELVIS: Lung Bases: New tiny bilateral pleural effusions. Adjacent dependent changes. Small hiatal hernia. Liver: Normal density. No suspicious mass. Gallbladder and biliary tract: Cholecystectomy. Stable mild biliary dilatation. Pancreas: Ill-defined mass again noted in the body of the pancreas with attenuation of adjacent vessels, at the level of the portal vein.. There is now bland thrombus versus tumor thrombus seen within the portal vein extending into the main hepatic veins. The evaluation is somewhat limited due to mild artifact from motion. No thrombus is seen within mesenteric veins. Spleen: Normal. Splenic artery and vein appear patent. Kidneys: Normal size, contour and axis. Bilateral nonobstructing renal calculi. No obstructive uropathy. No suspicious masses seen. Adrenal glands: Stable small nodule in or adjacent to the left adrenal gland. Vasculature: Abdominal aorta non-dilated. Soft tissues: Mild bilateral gynecomastia. Area of soft tissue nodularity again noted in the midline of the abdominal wall just below the level of the umbilicus. Appears stable in size were there is increased edema in the subcutaneous fat in the region of the umbilicus. Bladder: No gross wall thickening. No calculi.No focal mass. Bowel: No obstruction. Marked wall thickening of the colon from the level of the cecum through mid descending colon, consistent with colitis. There is diverticulosis of the distal descending and sigmoid colon but no evidence of diverticulitis. The majority of the colon is collapsed. There is a small amount of stool in the sigmoid region and some fluid in the rectum. Appendix normal. Peritoneal cavity: Ascites now present around liver and spleen as well as in the right lower quadrant and low pelvis. This has increased when compared the prior exam. No focal collection. No mesenteric inflammatory response. No free air. Bones: No gross evidence of metastatic lesions. Reproductive organs: Prostate is enlarged. Lymph nodes: No pathologically enlarged lymph nodes. IMPRESSION:: Marked wall thickening of the colon from the cecum through the mid descending colon, consistent with colitis. Increased ascites. Roughly stable size of pancreatic mass however there is thrombus noted within the portal vein with extension into the hepatic veins. Tiny bilateral pleural effusions and adjacent atelectasis. Findings discussed with the ER provider. Lab Data Lab results reviewed: Yes I reviewed the patient's lab results. Labs: Laboratory Tests Range/Units 03/22/25 10:21 WBC (4.4-10.8) 10^3/uL 12.66 H RBC (4.36-5.78) 10^6/uL 3.63 L Hgb (13.5-17.5) g/dL 11.1 L Hct (40.0-50.0) % 32.6 L MCV (80-95) fL 90 MCH (27.0-33.0) pg 30.6 MCHC (32.0-36.0) % 34.0 RDW (11.8-14.1) % 15.8 H Plt Count (130-400) 10^3/uL 168 MPV (8.0-11.0) fL 12.2 H Immature Gran % % 0.6 Neutrophils % % 91.7 Lymphocytes % % 3.9 Monocytes % % 3.6 Eosinophils % % 0.0 Basophils % % 0.2 Nucleated RBC % (0.0-0.3) % 0.0 Absolute Neutrophils (1.2-6.7) 10^3/uL 11.61 H Absolute Lymphocytes (1.2-3.4) 10^3/uL 0.49 L Absolute Monocytes (0.1-0.8) 10^3/uL 0.46 Absolute Eosinophils (0.0-0.7) 10^3/uL 0.00 Absolute Basophils (0.0-0.2) 10^3/uL 0.03 VBG Lactate (<or=2.0) mmol/L 2.4 H* Sodium (136-145) mmol/L 143 Potassium (3.5-5.1) mmol/L 3.1 L Chloride (98-107) mmol/L 107 Carbon Dioxide (21.0-32.0) mmol/L 26.5 Anion Gap (3-11) mmol/L 9.5 BUN (7-18) mg/dL 23 H Creatinine (0.70-1.30) mg/dL 0.7 Est GFR (CKD-EPI 2020) (mL/min/1.73m2) 92.00 Glucose (74-106) mg/dL 154 H Calcium (8.5-10.1) mg/dL 8.7 Magnesium (1.8-2.4) mg/dL 2.1 Total Bilirubin (0.2-1.0) mg/dL 1.8 H AST (15-37) U/L 34 ALT (16-63) U/L 41 Alkaline Phosphatase (46-116) U/L 101 Total Protein (6.4-8.2) g/dL 6.2 L Albumin (3.4-5.0) g/dL 3.4 Lipase (<78) U/L 20 PFSH All Active Problems (Updated 07/03/24 @ 14:01 by Arabella Zarco DNP) BPH w urinary obs/LUTS (Acute) Gallstone pancreatitis (Acute) GERD (gastroesophageal reflux disease) (Chronic) Preoperative cardiovascular examination (Acute) Alcohol abuse, daily use (Chronic) Pancreatitis (Acute) Acute gallstone pancreatitis (Acute) Elevated lipase (Acute) Cough (Acute) controlled with Omeprazole Impotence (Acute 03/07/13) Medical History (Updated 07/03/24 @ 14:01 by Arabella Zarco DNP) Elevated PSA UTI symptoms Sleep apnea Spinal stenosis Joint pain Itchy skin Diverticula of intestine Chronic recurrent sinusitis Acute bronchitis Acute sinusitis Non-toxic uninodular goiter Bradycardia Aortic valve regurgitation Essential hypertension Cervical spine fracture C6-7 HTN (hypertension) Surgical History Hx of cholecystectomy (~04/2024) History of fusion of cervical spine C6-7 ACDF for C6-SAP fracture, disruption of ALL, 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 Family History Other Cancer Diabetes Hypertension Social History Smoking/Tobacco Use Status: Former Tobacco Use Quit Date: 09/27/74 Smoking risk assessment performed?: Yes Alcohol Intake: current Alcohol type: wine Drug use: Never Substance use type: does not use Housing: house Do you feel safe at home: Yes Do you feel safe in your relationship?: Yes
[2025-03-22 12:52] LABS: Bilirubin Negative (Negative); Blood Trace-intact (Negative); Clarity Clear (Clear); Glucose Negative (Negative); Ketones Negative (Negative); Leukocyte Esterase Small (Negative); Nitrite Negative (Negative); Specific Gravity 1.015 (1.005-1.025)
[2025-03-22 13:04] LABS: Bacteria Moderate HPF (Negative); C & S Indicated? Yes; Casts Negative LPF (Negative); Crystals Negative HPF (Negative); Epithelial Cells Negative HPF (Negative); Mucus Heavy (Negative); Other Cells Negative (Negative); WBC >50 HPF (0-5)
[2025-03-22 16:25] LABS: Abs Immature Grans 0.05 10^3/uL (0.0-0.06); Absolute Lymphocyte Count 0.28 10^3/uL (1.2-3.4); Absolute Monocyte Count 0.18 10^3/uL (0.1-0.8); Absolute Neutrophil Count 9.78 10^3/uL (1.2-6.7); HCT 32.5 % (40.0-50.0); HGB 10.7 g/dL (13.5-17.5); Immature Grans % 0.5 %; Lactate 2.7 mmol/L (<or=2.0); Lymphocytes % 2.7 %; MCH 29.3 pg (27.0-33.0); MCHC 32.9 % (32.0-36.0); MCV 89 fL (80-95); MPV 12.5 fL (8.0-11.0); Monocytes % 1.7 %; Neutrophils % 95.1 %; Platelet Count 165 10^3/uL (130-400); RBC 3.65 10^6/uL (4.36-5.78); RDW 15.9 % (11.8-14.1); WBC 10.29 10^3/uL (4.4-10.8)
[2025-03-22 16:42] LABS: INR 1.2 (0.9-1.1); Prothrombin Time 11.5 sec (9.1-11.1)
--- NOTE | 2025-03-22 17:17 | ED.PROG_ITS ---
Date of service: 03/22/25 Time of Service: 17:18 Medical Decision Making Care is excepted in transition from GURVINDER Harper at time of his departure the patient had a large amount of liquid bloody diarrhea this was sent for culture as he has evidence of colitis on his CT scan which is pretty extensive. He also has a portal vein thrombus which will need further assessment. Case was discussed with hematology oncology and she recommends patient be transferred to their facility. I discussed the case with Dr. Junior admitting hospitalist and he accepts the patient to their service with GI bleed likely secondary to colitis pending stool cultures blood cultures leukocytosis, greater than 50 white blood cells on urinalysis with blood noted as well, will give ceftriaxone 2 g. Patient does have a lactate of 2.4 which increased to 2.7 but remains hemodynamically stable received 1 L of NS throughout his stay here will give additional 500 cc and after discussion with Dr. Finely, GI, patient will be clear liquid. Repeat CBC hemoglobin was 11.1 on initial presentation, repeat CBC 10.7 which is reassuring. Patient requires GI and hematology oncology involvement given his pancreatic cancer history and would be best served at a tertiary care facility who is currently managing his cancer diagnosis. He is agreeable to transfer at this time and wishes to be full CODE STATUS Discharge Plan Discharge Details Chief Complaint: Abd Prob Primary Care Provider: Chidi Moreno ED Provider: Katrin Degroot Home Meds and New Rx's Prescriptions: No Action losartan-hydrochlorothiazide [Hyzaar] 1 EACH tablet 0.5 tab-cap PO DAILY amlodipine 10 mg tablet 5 mg PO DAILY Patient Comments: [place] [facility] fluticasone propionate [Flonase Allergy Relief] 50 mcg/actuation spray,suspension 2 spray intranasal DAILY Rx Instructions: administer into each nostril budesonide-formoterol [Symbicort] 160-4.5 mcg/actuation HFA aerosol inhaler 1 inh inhalation ONCE PRN azelastine 137 mcg (0.1 %) aerosol,spray 1 spray intranasal BID PRN Rx Instructions: administer into each nostril omeprazole 20 mg capsule,delayed release(DR/EC) See Rx Instructions .ROUTE .COMPLEX Qty: 90 0RF Dose Instruction: Take 1 capsule by mouth once daily Rx Instructions: Take 1 capsule by mouth once daily lorazepam 0.5 mg tablet 0.5 mg PO Q6H PRN potassium chloride 20 mEq tablet,ER particles/crystals 20 meq PO DAILY acetaminophen 325 mg capsule 650 mg PO Q4H PRN triamcinolone acetonide 0.1 % cream 1 applic TOPICAL ONCE PRN Patient Comments: APPLY CREAM TOPICALLY TO THE AFFECTED AREA(S) OF RASH ON BUTTOCKS TWICE DAILY lidocaine-prilocaine 2.5-2.5 % cream 1 applic topical ONCE PRN Creon 24,000-76,000 -120,000 unit capsule,delayed release(DR/EC) 3 cap PO TID Rx Instructions: administer with meals and/or snacks tamsulosin 0.4 mg capsule 0.4 mg PO DAILY Patient Comments: [place] from [facility] [place] Rx Instructions: Note dosage increase Discharge Data Discharge Date/Time-TO BE ENTERED AT DEPARTURE: 03/22/25 18:17
[2025-03-22] MEDS: Pantoprazole 40 MG VIAL IVP (17:24)
[2025-03-22] MEDS: cefTRIAXone 2 GM/50 ML BAG IVPB (17:24)
[2025-03-22 18:14] LABS: C Diff PCR Negative (Negative); EPI 027-NAP1-B1 PRESUMPTIVE NEGATIVE
[2025-03-23 23:05] LABS: Campylobacter PCR Negative (Negative); Salmonella PCR Negative (Negative); Shiga Toxin PCR Negative (Negative); Shigella/Enteroinvasive Ecoli Negative (Negative)
== END 2025-03-22 18:17 | disposition short-term general hospital (02) ==
PROVIDERS: Physician Assistant; Emergency Provider Physician Assistant; PCP Physician Assistant
DX: C25.9 Malignant neoplasm of pancreas, unspecified (principal); K52.89 Other specified noninfective gastroenteritis and colitis; R10.30 Lower abdominal pain, unspecified; R19.7 Diarrhea, unspecified
CPT/HCPCS: 99285 ×2; 96375; 00123; 80053; 83690; 86850; 86900; 86901; 87040; 87077; 87505; 96361; 96365; 74177; 81003; 81015; 83605; 83735; 85025; 85610; 87086; 87186; J0696; J2470; J3480

== ENCOUNTER 2025-04-21 00:10 | Outpatient (RCR) | payer MEDICARE, BC, SELFPAY ==
[2025-04-05] MEDS: Normal Saline Flush 10 ML SYR IVP (08:45)
[2025-04-05 09:10] LABS: Abs Immature Grans 0.00 10^3/uL (0.0-0.06); HCT 32.6 % (40.0-50.0); HGB 10.8 g/dL (13.5-17.5); Immature Grans % 0.0 %; MCH 29.4 pg (27.0-33.0); MCHC 33.1 % (32.0-36.0); MCV 89 fL (80-95); MPV 11.7 fL (8.0-11.0); Platelet Count 246 10^3/uL (130-400); RBC 3.67 10^6/uL (4.36-5.78); RDW 16.0 % (11.8-14.1); RDW-SD 52.0 fL; WBC 2.69 10^3/uL (4.4-10.8)
[2025-04-05 09:30] LABS: ALT 47 U/L (16-63); AST 33 U/L (15-37); Albumin 3.0 g/dL (3.4-5.0); Alkaline Phosphatase 123 U/L (46-116); Anion Gap 5.8 mmol/L (3-11); BUN 9 mg/dL (7-18); Bilirubin, Total 1.0 mg/dL (0.2-1.0); CO2 29.2 mmol/L (21.0-32.0); Calcium 8.8 mg/dL (8.5-10.1); Chloride 105 mmol/L (98-107); Estimated GFR 101.84 (mL/min/1.73m2); Glucose 139 mg/dL (74-106); Potassium 3.6 mmol/L (3.5-5.1); Sodium 140 mmol/L (136-145); Total Protein 6.0 g/dL (6.4-8.2)
[2025-04-06 11:38] LABS: CA 19-9 1208 U/mL (<35)
[2025-04-19] MEDS: Normal Saline Flush 10 ML SYR IVP (12:06)
[2025-04-19 12:15] LABS: Abs Immature Grans 0.01 10^3/uL (0.0-0.06); HCT 32.8 % (40.0-50.0); HGB 10.9 g/dL (13.5-17.5); Immature Grans % 0.2 %; MCH 29.3 pg (27.0-33.0); MCHC 33.2 % (32.0-36.0); MCV 88 fL (80-95); MPV 12.8 fL (8.0-11.0); Platelet Count 150 10^3/uL (130-400); RBC 3.72 10^6/uL (4.36-5.78); RDW 17.0 % (11.8-14.1); RDW-SD 54.6 fL; WBC 5.64 10^3/uL (4.4-10.8)
[2025-04-19 12:30] LABS: ALT 37 U/L (16-63); AST 30 U/L (15-37); Albumin 3.2 g/dL (3.4-5.0); Alkaline Phosphatase 126 U/L (46-116); Anion Gap 7.1 mmol/L (3-11); BUN 13 mg/dL (7-18); Bilirubin, Total 1.5 mg/dL (0.2-1.0); CO2 27.9 mmol/L (21.0-32.0); Calcium 9.1 mg/dL (8.5-10.1); Chloride 104 mmol/L (98-107); Estimated GFR 92.00 (mL/min/1.73m2); Glucose 122 mg/dL (74-106); Potassium 3.5 mmol/L (3.5-5.1); Sodium 139 mmol/L (136-145); Total Protein 6.1 g/dL (6.4-8.2)
[2025-04-20 14:15] LABS: CA 19-9 2348 U/mL (<35)
[2025-04-21 14:07] VITALS: BP 126/69; PULSE 78; RESP 16; TEMP 36.2; O2SAT 96
[2025-04-21] MEDS: Normal Saline Flush 10 ML SYR IVP (14:09)
== END 2025-04-26 23:59 | disposition home or self-care (01) ==
LOC: INF 00:10
PROVIDERS: Internal Medicine Hematology & Oncology; PCP Physician Assistant; Visit Provider Nurse Practitioner Family
DX: C25.0 Malignant neoplasm of head of pancreas (principal); Z45.2 Encounter for adjustment and management of vascular access device
CPT/HCPCS: 36591; 80053; 96523; 85025; 86301

== ENCOUNTER 2025-05-16 02:14 | Outpatient (CLI) | payer MEDICARE, BC, SELFPAY ==
[2025-05-16] MEDS: Barium Sulfate 2% W/V-Berry Smoothie 450 ML BTL PO ×2 (07:52→07:53)
[2025-05-16] MEDS: Normal Saline - Diluent 50 ML VIAL IJ (10:25)
[2025-05-16] MEDS: Omnipaque 350 MG/ML 100 ML BTL IJ (10:25)
[2025-05-16] MEDS: Normal Saline Flush 10 ML SYR IVP (10:27)
--- NOTE | 2025-05-16 10:27 | DI.CT_ITS ---
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 TECHNIQUE: Imaging Protocol: Axial computed tomography images with coronal and sagittal reformatted images were created and reviewed. Computer aided detection (CAD) was utilized. CONTRAST MATERIAL: Intravenous: Omnipaque 350 Contrast volume:100 ml Oral: yes / COMPARISON: CT CT ABDOMEN PELVIS W from 09/13/[address] CHEST/ABD/PEL W from 01/29/[address] ABDOMEN PELVIS W from 03/22/2025 FINDINGS: CHEST: Pulmonary parenchyma: Worsening of elevation of the right hemidiaphragm secondary to increasing ascites. Mild compressive atelectasis at the right lung base. No consolidation. No dominant measurable mass. Stable pleural-based nodule at the medial right lung base. There are a few bilateral upper lobe calcified granulomas. Tracheobronchial tree: No bronchiectasis. No mucous plugging.No bronchial wall thickening. Pleura: Tiny bilateral pleural effusions, left greater than right, increasing from prior. No pneumothorax. Mediastinum: No adenopathy. Small hiatal hernia. Pulmonary arteries: No visible emboli. Cardiovascular: Heart is mildly enlarged. No pericardial effusion. Thoracic aorta non-dilated. Bones: Syndesmophyte formation noted along thoracic spine. No lytic or blastic lesions. No compression fractures. Soft tissues: Mild bilateral gynecomastia. Port over right pectoral muscle. ABDOMEN and PELVIS: Liver: Normal density. Patchy ill-defined areas are now noted in the left lobe in superior anterior portion of the right lobe. Gallbladder and biliary tract: Cholecystectomy. Mild intrahepatic biliary dilatation. Common bile duct is not well visualized at the level of the jocelyne hepatis however is visualized distally in the pancreatic head. 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 Portions of the portal vein are not well visualized, obscured by the mass. Pancreas: No visible change in pancreatic head mass. The body and tail are again noted to be atrophic with dilated duct. Spleen: mildly enlarged at 14 cm in length. Kidneys: Normal size, contour and axis. Bilateral nonobstructing calculi. No obstructive uropathy. No suspicious masses seen. Adrenal glands: Stable nodule on the left. Aorta: Abdominal portion non-dilated. Lymph nodes: Within normal limits. Soft tissues: small nodule in the midline of the abdominal wall below the umbilicus. Bladder: Unremarkable. Bowel: No obstruction or bowel wall thickening. Diverticulosis of the distal descending and sigmoid colon. Peritoneal cavity: Large amount of ascites is now noted, around the liver and spleen as well as a large quantity in the pelvis. No focal collection. No mesenteric inflammatory response. No free air. Bones: Unremarkable for age. Reproductive organs: Markedly enlarged prostate. IMPRESSION: No small bilateral pleural effusions. Large quantity of ascites, increasing from prior. Low-density lesions noted in liver consistent with metastases. 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 Roughly stable size of invasive pancreatic mass. RADIATION DOSE DELIVERED: 844.19mGy.cm Total DLP DATA REPOSITORY: All CT scans at this facility are submitted to the National Radiology Data Registry (NRDR) Dose Index Registry (DIR) with the [employer] ([employer]). RADIATION OPTIMIZATION: All CT scans at this facility use at least one of these dose optimization techniques: automated exposure control; mA and/or kV adjustment per patient size (includes targeted exams where dose is matched to clinical indication); or iterative reconstruction.
== END 2025-05-16 02:34 ==
LOC: DI 02:14
PROVIDERS: PCP Physician Assistant; Visit Provider Nurse Practitioner Family
DX: C25.9 Malignant neoplasm of pancreas, unspecified (principal); C78.7 Secondary malignant neoplasm of liver and intrahepatic bile duct
CPT/HCPCS: 74177; 96523; 71260; J3490

== ENCOUNTER 2025-05-22 02:27 | Outpatient (RCR) | payer MEDICARE, BC, SELFPAY ==
[2025-05-03] MEDS: Normal Saline Flush 10 ML SYR IVP (09:39)
[2025-05-03 10:10] LABS: Abs Immature Grans 0.00 10^3/uL (0.0-0.06); HCT 32.0 % (40.0-50.0); HGB 10.9 g/dL (13.5-17.5); Immature Grans % 0.0 %; MCH 29.6 pg (27.0-33.0); MCHC 34.1 % (32.0-36.0); MCV 87 fL (80-95); MPV 11.4 fL (8.0-11.0); Platelet Count 108 10^3/uL (130-400); RBC 3.68 10^6/uL (4.36-5.78); RDW 16.4 % (11.8-14.1); RDW-SD 51.7 fL; WBC 2.43 10^3/uL (4.4-10.8)
[2025-05-03 10:26] LABS: ALT 29 U/L (16-63); AST 23 U/L (15-37); Albumin 3.1 g/dL (3.4-5.0); Alkaline Phosphatase 109 U/L (46-116); Anion Gap 7.0 mmol/L (3-11); BUN 11 mg/dL (7-18); Bilirubin, Total 1.8 mg/dL (0.2-1.0); CO2 30.0 mmol/L (21.0-32.0); Calcium 8.9 mg/dL (8.5-10.1); Chloride 101 mmol/L (98-107); Estimated GFR 88.36 (mL/min/1.73m2); Glucose 149 mg/dL (74-106); Potassium 3.3 mmol/L (3.5-5.1); Sodium 138 mmol/L (136-145); Total Protein 5.9 g/dL (6.4-8.2)
[2025-05-04 12:23] LABS: CA 19-9 2048 U/mL (<35)
[2025-05-16] MEDS: Normal Saline Flush 10 ML SYR IVP (07:42)
[2025-05-22] MEDS: Normal Saline Flush 10 ML SYR IVP (08:34)
[2025-05-22 08:54] LABS: Abs Immature Grans 0.00 10^3/uL (0.0-0.06); HCT 30.9 % (40.0-50.0); HGB 10.6 g/dL (13.5-17.5); Immature Grans % 0.0 %; MCH 29.9 pg (27.0-33.0); MCHC 34.3 % (32.0-36.0); MCV 87 fL (80-95); MPV 11.4 fL (8.0-11.0); Platelet Count 154 10^3/uL (130-400); RBC 3.55 10^6/uL (4.36-5.78); RDW 17.2 % (11.8-14.1); RDW-SD 54.9 fL
[2025-05-22 09:12] LABS: ALT 29 U/L (16-63); AST 24 U/L (15-37); Albumin 3.1 g/dL (3.4-5.0); Alkaline Phosphatase 111 U/L (46-116); Anion Gap 7.0 mmol/L (3-11); BUN 15 mg/dL (7-18); Bilirubin, Total 1.4 mg/dL (0.2-1.0); CO2 29.0 mmol/L (21.0-32.0); Calcium 9.1 mg/dL (8.5-10.1); Chloride 102 mmol/L (98-107); Estimated GFR 85.27 (mL/min/1.73m2); Glucose 177 mg/dL (74-106); Potassium 3.2 mmol/L (3.5-5.1); Sodium 138 mmol/L (136-145); Total Protein 5.9 g/dL (6.4-8.2)
[2025-05-22 10:17] LABS: Acanthocytes 1+; Ovalocytes 2+; Schistocytes 1+
[2025-05-22 10:18] LABS: Poikilocytes 1+
[2025-05-22 10:22] LABS: WBC 1.93 10^3/uL (4.4-10.8)
[2025-05-23 14:06] LABS: CA 19-9 1786 U/mL (<35)
== END 2025-05-27 23:59 | disposition home or self-care (01) ==
LOC: INF 02:27
PROVIDERS: Internal Medicine Hematology & Oncology; PCP Physician Assistant; Visit Provider Nurse Practitioner Family
DX: C25.0 Malignant neoplasm of head of pancreas (principal); Z45.2 Encounter for adjustment and management of vascular access device
CPT/HCPCS: 36591; 80053; 96523; 85025; 86301

== ENCOUNTER 2025-06-16 00:07 | Outpatient (RCR) | payer MEDICARE, BC, SELFPAY ==
[2025-05-31 09:37] LABS: Abs Immature Grans 0.01 10^3/uL (0.0-0.06); HCT 35.8 % (40.0-50.0); HGB 12.0 g/dL (13.5-17.5); Immature Grans % 0.2 %; MCH 29.2 pg (27.0-33.0); MCHC 33.5 % (32.0-36.0); MCV 87 fL (80-95); MPV 11.4 fL (8.0-11.0); Platelet Count 180 10^3/uL (130-400); RBC 4.11 10^6/uL (4.36-5.78); RDW 17.5 % (11.8-14.1); RDW-SD 56.5 fL; WBC 5.68 10^3/uL (4.4-10.8)
[2025-05-31 10:06] LABS: ALT 35 U/L (16-63); AST 30 U/L (15-37); Albumin 3.2 g/dL (3.4-5.0); Alkaline Phosphatase 125 U/L (46-116); Anion Gap 4.4 mmol/L (3-11); BUN 10 mg/dL (7-18); Bilirubin, Total 1.5 mg/dL (0.2-1.0); CO2 31.6 mmol/L (21.0-32.0); Calcium 9.1 mg/dL (8.5-10.1); Chloride 103 mmol/L (98-107); Glucose 101 mg/dL (74-106); Potassium 3.1 mmol/L (3.5-5.1); Sodium 139 mmol/L (136-145); Total Protein 6.4 g/dL (6.4-8.2)
[2025-05-31] MEDS: Normal Saline Flush 10 ML SYR IVP (11:05)
[2025-06-01 10:00] LABS: CA 19-9 3043 U/mL (<35)
[2025-06-02 12:09] VITALS: BP 126/72; PULSE 51; RESP 16; TEMP 36.3; O2SAT 98
[2025-06-14 11:11] VITALS: BP 126/72; PULSE 51; RESP 16; TEMP 36.3; O2SAT 98
[2025-06-14 11:12] LABS: Abs Immature Grans 0.01 10^3/uL (0.0-0.06); HCT 32.8 % (40.0-50.0); HGB 11.2 g/dL (13.5-17.5); Immature Grans % 0.3 %; MCH 29.5 pg (27.0-33.0); MCHC 34.1 % (32.0-36.0); MCV 86 fL (80-95); MPV 10.9 fL (8.0-11.0); Platelet Count 134 10^3/uL (130-400); RBC 3.80 10^6/uL (4.36-5.78); RDW 16.7 % (11.8-14.1); RDW-SD 52.7 fL; WBC 2.89 10^3/uL (4.4-10.8)
[2025-06-14] MEDS: Normal Saline Flush 10 ML SYR IVP (11:15)
[2025-06-14 11:41] LABS: ALT 30 U/L (16-63); AST 22 U/L (15-37); Albumin 3.2 g/dL (3.4-5.0); Alkaline Phosphatase 139 U/L (46-116); Anion Gap 5.7 mmol/L (3-11); BUN 13 mg/dL (7-18); Bilirubin, Total 1.2 mg/dL (0.2-1.0); CO2 29.3 mmol/L (21.0-32.0); Calcium 9.1 mg/dL (8.5-10.1); Chloride 104 mmol/L (98-107); Glucose 108 mg/dL (74-106); Potassium 4.0 mmol/L (3.5-5.1); Sodium 139 mmol/L (136-145); Total Protein 6.1 g/dL (6.4-8.2)
[2025-06-14 19:43] LABS: CA 19-9 2502 U/mL (<35)
[2025-06-16 14:28] VITALS: BP 126/72; PULSE 51; RESP 16; TEMP 36.3; O2SAT 98
[2025-06-16] MEDS: Normal Saline Flush 10 ML SYR IVP (14:30)
== END 2025-06-26 23:59 | disposition home or self-care (01) ==
LOC: INF 00:07
PROVIDERS: Internal Medicine Hematology & Oncology; PCP Physician Assistant; Visit Provider Nurse Practitioner Family
DX: C25.0 Malignant neoplasm of head of pancreas (principal); Z45.2 Encounter for adjustment and management of vascular access device
CPT/HCPCS: 36591; 80053; 85025; 86301

== ENCOUNTER 2025-07-18 01:26 | Outpatient (CLI) | payer MEDICARE, BC, SELFPAY ==
--- NOTE | 2025-07-18 | DI.CT_ITS ---
Exam(s) CT CHEST/ABD/PEL W EXAM: CT CHEST/ABD/PEL W CLINICAL HISTORY: PANCREATIC CA MET TO LIVER, C25.9 C78.7 TECHNIQUE: Imaging Protocol: Axial computed tomography images with coronal and sagittal reformatted images were created and reviewed. Lung Computer Aided Detection (CAD) was utilized. CONTRAST MATERIAL: Intravenous: Omnipaque 350 contrast volume:100 mL Oral: Yes COMPARISON: CT CT CHEST/ABD/PEL W from 05/16/2025 FINDINGS: CHEST: Tracheobronchial tree: Patent where visualized. No evidence of bronchiectasis. Pulmonary parenchyma: No consolidation or dominant measurable mass. There are calcified granuloma present. There are no new pulmonary nodules. No acute infiltrates are present. Visualized thyroid gland: Stable thyroid nodules. No follow-up is recommended. Mediastinum and Amada: No dominant adenopathy or fluid collection. The esophagus is unremarkable. Pleura: No effusion or pneumothorax. Heart: Mildly enlarged heart. Coronary artery calcifications are present. No pericardial effusion. Pulmonary arteries: No pulmonary emboli are identified. Aorta: Thoracic aorta non-dilated. Atherosclerotic calcification is present. There is no evidence of dissection. Lymph nodes: Within normal limits. Tubes, Catheters, and Lines: There is a right [id number] catheter. Soft tissues: Gynecomastia. Bones:Within normal limits for the patient's age. There are no aggressive osseous lesions. ABDOMEN: Liver: Normal density. There is no change in size of the hypodense mass in the left lobe of the liver. There are no new hepatic masses present. Portal, Superior Mesenteric, and Splenic Veins: There is again seen thrombus in the portal vein. The superior mesenteric and splenic veins are patent. Gallbladder and Biliary Tract: Status post cholecystectomy. There is again seen intra and extrahepatic biliary ductal dilatation. Pancreas: There is atrophy of the body and tail of the pancreas. The ill- defined hypoechoic area in the pancreatic head is unchanged. Spleen: Normal. Adrenals: No masses seen. Kidneys: Normal size, contour and axis. There is bilateral nephrolithiasis. There are bilateral parapelvic cysts. No follow-up is recommended. There are no suspicious mass is present. Abdominal Aorta: Abdominal portion non-dilated. Atherosclerotic calcification is present. Bowel: There is diverticulosis of the colon without evidence of acute diverticulitis. There is no evidence of bowel obstruction. No evidence of appendicitis is present. There is a small hiatal hernia. Peritoneal Cavity: There is a small amount of pelvic ascites. The degree of ascites has decreased compared to the prior examination. There is no pneumoperitoneum. Lymph Nodes: Within normal limits. Bones: Within normal limits for the patient's age. Soft Tissues: Unremarkable. PELVIS: Bladder: The urinary bladder is incompletely distended limiting evaluation. Reproductive Organs: The prostate gland is moderately enlarged. Lymph Nodes: Within normal limits. Bones: Within normal limits. IMPRESSION: 1. Stable hepatic mass likely reflecting metastatic disease. 2. Small amount of pelvic ascites which has decreased compared to the prior examination. 3. Stable pancreatic head mass. 4. There is no acute pulmonary process. 5. No definite evidence of thoracic metastatic disease. RADIATION DOSE DELIVERED: 631.46mGy.cm Total DLP DATA REPOSITORY: All CT scans at this facility are submitted to the National Radiology Data Registry (NRDR) Dose Index Registry (DIR) with the [employer] ([employer]). RADIATION OPTIMIZATION: All CT scans at this facility use at least one of these dose optimization techniques: automated exposure control; mA and/or kV adjustment per patient size (includes targeted exams where dose is matched to clinical indication); or iterative reconstruction.
[2025-07-18] MEDS: Barium Sulfate 2% W/V-Berry Smoothie 450 ML BTL PO (10:59)
[2025-07-18] MEDS: Barium Sulfate 2% W/V-Creamy Vanilla Smoothie 450 ML BTL PO (10:59)
[2025-07-18] MEDS: Normal Saline - Diluent 50 ML VIAL IJ (13:02)
[2025-07-18] MEDS: Omnipaque 350 MG/ML 100 ML BTL IJ (13:02)
== END 2025-07-18 01:46 ==
PROVIDERS: PCP Physician Assistant; Visit Provider Internal Medicine Hematology & Oncology
DX: C25.9 Malignant neoplasm of pancreas, unspecified (principal); C78.7 Secondary malignant neoplasm of liver and intrahepatic bile duct
CPT/HCPCS: 74177; 96523; 71260; J3490

== ENCOUNTER 2025-07-26 00:05 | Outpatient (RCR) | payer MEDICARE, BC, SELFPAY ==
[2025-06-27] MEDS: Normal Saline Flush 10 ML SYR IVP (11:26)
[2025-06-27] MEDS: Normal Saline 1,000 ML 500 ML IV (11:26)
[2025-06-27 11:41] LABS: Abs Immature Grans 0.01 10^3/uL (0.0-0.06); HCT 33.7 % (40.0-50.0); HGB 11.8 g/dL (13.5-17.5); Immature Grans % 0.3 %; MCH 30.3 pg (27.0-33.0); MCHC 35.0 % (32.0-36.0); MCV 86 fL (80-95); MPV 10.3 fL (8.0-11.0); Platelet Count 177 10^3/uL (130-400); RBC 3.90 10^6/uL (4.36-5.78); RDW 16.0 % (11.8-14.1); RDW-SD 50.4 fL; WBC 3.29 10^3/uL (4.4-10.8)
[2025-06-27 11:56] LABS: ALT 32 U/L (16-63); AST 19 U/L (15-37); Albumin 3.2 g/dL (3.4-5.0); Alkaline Phosphatase 129 U/L (46-116); Anion Gap 7.2 mmol/L (3-11); BUN 14 mg/dL (7-18); Bilirubin, Total 1.3 mg/dL (0.2-1.0); CO2 27.8 mmol/L (21.0-32.0); Calcium 8.8 mg/dL (8.5-10.1); Chloride 95 mmol/L (98-107); Glucose 162 mg/dL (74-106); Potassium 3.6 mmol/L (3.5-5.1); Sodium 130 mmol/L (136-145); Total Protein 6.1 g/dL (6.4-8.2)
[2025-06-27 20:20] LABS: CA 19-9 3179 U/mL (<35)
[2025-06-30] MEDS: Normal Saline Flush 10 ML SYR IVP (09:52)
[2025-07-12] MEDS: Normal Saline Flush 10 ML SYR IVP (10:54)
[2025-07-12 11:15] LABS: Abs Immature Grans 0.01 10^3/uL (0.0-0.06); HCT 32.5 % (40.0-50.0); HGB 11.2 g/dL (13.5-17.5); Immature Grans % 0.4 %; MCH 29.7 pg (27.0-33.0); MCHC 34.5 % (32.0-36.0); MCV 86 fL (80-95); MPV 10.8 fL (8.0-11.0); Platelet Count 139 10^3/uL (130-400); RBC 3.77 10^6/uL (4.36-5.78); RDW 16.4 % (11.8-14.1); RDW-SD 51.1 fL; WBC 2.79 10^3/uL (4.4-10.8)
[2025-07-12 11:45] LABS: ALT 25 U/L (16-63); AST 17 U/L (15-37); Albumin 3.1 g/dL (3.4-5.0); Alkaline Phosphatase 149 U/L (46-116); Anion Gap 6.5 mmol/L (3-11); BUN 19 mg/dL (7-18); Bilirubin, Total 0.9 mg/dL (0.2-1.0); CO2 27.5 mmol/L (21.0-32.0); Calcium 8.9 mg/dL (8.5-10.1); Chloride 97 mmol/L (98-107); Glucose 99 mg/dL (74-106); Potassium 4.4 mmol/L (3.5-5.1); Sodium 131 mmol/L (136-145); Total Protein 6.2 g/dL (6.4-8.2)
[2025-07-13 11:45] LABS: CA 19-9 2538 U/mL (<35)
[2025-07-14 13:40] VITALS: BP 130/70; PULSE 72; RESP 16; TEMP 36.4; O2SAT 96
[2025-07-18] MEDS: Normal Saline Flush 10 ML SYR IVP (10:52)
[2025-07-26 09:31] LABS: Abs Immature Grans 0.00 10^3/uL (0.0-0.06); HCT 33.9 % (40.0-50.0); HGB 11.5 g/dL (13.5-17.5); Immature Grans % 0.0 %; MCH 29.0 pg (27.0-33.0); MCHC 33.9 % (32.0-36.0); MCV 86 fL (80-95); MPV 11.0 fL (8.0-11.0); Platelet Count 202 10^3/uL (130-400); RBC 3.96 10^6/uL (4.36-5.78); RDW 16.1 % (11.8-14.1); RDW-SD 50.3 fL
[2025-07-26 09:54] LABS: WBC 1.32 10^3/uL (4.4-10.8)
[2025-07-26 10:11] LABS: ALT 23 U/L (16-63); AST 16 U/L (15-37); Albumin 2.9 g/dL (3.4-5.0); Alkaline Phosphatase 159 U/L (46-116); Anion Gap 8.5 mmol/L (3-11); BUN 15 mg/dL (7-18); Bilirubin, Total 1.0 mg/dL (0.2-1.0); CO2 25.5 mmol/L (21.0-32.0); Calcium 8.9 mg/dL (8.5-10.1); Chloride 99 mmol/L (98-107); Glucose 166 mg/dL (74-106); Potassium 4.2 mmol/L (3.5-5.1); Sodium 133 mmol/L (136-145); Total Protein 6.1 g/dL (6.4-8.2)
[2025-07-26 10:21] LABS: Magnesium 1.9 mg/dL (1.8-2.4)
[2025-07-26] MEDS: Normal Saline Flush 10 ML SYR IVP (11:01)
[2025-07-26 13:51] LABS: TSH 1.35 uIU/mL (0.36-3.74)
[2025-07-27 11:37] LABS: CA 19-9 3373 U/mL (<35)
== END 2025-07-27 23:59 | disposition home or self-care (01) ==
LOC: INF 00:05
PROVIDERS: Internal Medicine Hematology & Oncology; PCP Physician Assistant; Visit Provider Nurse Practitioner Family
DX: C25.0 Malignant neoplasm of head of pancreas (principal); R53.83 Other fatigue; Z45.2 Encounter for adjustment and management of vascular access device
CPT/HCPCS: 36591; 80053; 96523; 83735; 84443; 85025; 86301

== ENCOUNTER 2025-08-11 00:57 | Outpatient (RCR) | payer MEDICARE, BC, SELFPAY ==
[2025-08-09] MEDS: Normal Saline Flush 10 ML SYR IVP (11:29)
[2025-08-09 11:53] LABS: Abs Immature Grans 0.01 10^3/uL (0.0-0.06); HCT 34.4 % (40.0-50.0); HGB 11.4 g/dL (13.5-17.5); Immature Grans % 0.2 %; MCH 28.9 pg (27.0-33.0); MCHC 33.1 % (32.0-36.0); MCV 87 fL (80-95); MPV 12.1 fL (8.0-11.0); Platelet Count 186 10^3/uL (130-400); RBC 3.94 10^6/uL (4.36-5.78); RDW 18.0 % (11.8-14.1); RDW-SD 57.3 fL; WBC 5.32 10^3/uL (4.4-10.8)
[2025-08-09 12:22] LABS: ALT 26 U/L (10-49); AST 29 U/L (<34); Albumin 3.4 g/dL (3.4-5.0); Alkaline Phosphatase 130 U/L (46-116); Anion Gap 8.8 mmol/L (3-11); BUN 14 mg/dL (9-23); Bilirubin, Total 1.30 mg/dL (0.2-1.2); CO2 27.2 mmol/L (20.0-31.0); Calcium 9.0 mg/dL (8.3-10.6); Chloride 106 mmol/L (98-107); Glucose 138 mg/dL (74-106); Potassium 3.5 mmol/L (3.5-5.1); Sodium 142 mmol/L (136-145); Total Protein 5.8 g/dL (5.7-8.2)
[2025-08-10 11:10] LABS: CA 19-9 5366 U/mL (<35)
[2025-08-11 13:09] VITALS: BP 142/75; PULSE 67; RESP 14; TEMP 36; O2SAT 99
== END 2025-08-26 23:59 | disposition home or self-care (01) ==
LOC: INF 00:57
PROVIDERS: PCP Physician Assistant; Visit Provider Nurse Practitioner Family
DX: C25.0 Malignant neoplasm of head of pancreas (principal); Z45.2 Encounter for adjustment and management of vascular access device
CPT/HCPCS: 36591; 80053; 96523; 85025; 86301

== ENCOUNTER 2025-09-25 00:07 | Outpatient (RCR) | payer MEDICARE, BC, SELFPAY ==
[2025-08-30] MEDS: Normal Saline Flush 10 ML SYR IVP (09:13)
[2025-08-30 09:32] LABS: Abs Immature Grans 0.00 10^3/uL (0.0-0.06); HCT 33.0 % (40.0-50.0); HGB 11.0 g/dL (13.5-17.5); Immature Grans % 0.0 %; MCH 30.4 pg (27.0-33.0); MCHC 33.3 % (32.0-36.0); MCV 91 fL (80-95); MPV 10.8 fL (8.0-11.0); Platelet Count 169 10^3/uL (130-400); RBC 3.62 10^6/uL (4.36-5.78); RDW 17.6 % (11.8-14.1); RDW-SD 58.7 fL; WBC 2.12 10^3/uL (4.4-10.8)
[2025-08-30 09:50] LABS: ALT 21 U/L (10-49); AST 23 U/L (<34); Albumin 3.4 g/dL (3.2-5.0); Alkaline Phosphatase 126 U/L (46-116); Anion Gap 8.5 mmol/L (3-11); BUN 9 mg/dL (9-23); Bilirubin, Total 1.90 mg/dL (0.2-1.2); CO2 25.5 mmol/L (20.0-31.0); Calcium 8.6 mg/dL (8.3-10.6); Chloride 108 mmol/L (98-107); Glucose 172 mg/dL (74-106); Potassium 3.8 mmol/L (3.5-5.1); Sodium 142 mmol/L (136-145); Total Protein 5.5 g/dL (5.7-8.2)
[2025-08-30 10:28] LABS: RBC Morphology Normal
[2025-08-31 12:18] LABS: CA 19-9 1789 U/mL (<35)
[2025-09-06 11:08] LABS: Abs Immature Grans 0.01 10^3/uL (0.0-0.06); HCT 36.7 % (40.0-50.0); HGB 12.1 g/dL (13.5-17.5); Immature Grans % 0.2 %; MCH 29.5 pg (27.0-33.0); MCHC 33.0 % (32.0-36.0); MCV 90 fL (80-95); MPV 10.8 fL (8.0-11.0); Platelet Count 175 10^3/uL (130-400); RBC 4.10 10^6/uL (4.36-5.78); RDW 16.3 % (11.8-14.1); RDW-SD 53.9 fL; WBC 5.76 10^3/uL (4.4-10.8)
[2025-09-06 11:21] LABS: ALT 24 U/L (10-49); AST 26 U/L (<34); Albumin 3.8 g/dL (3.2-5.0); Alkaline Phosphatase 154 U/L (46-116); Anion Gap 8.2 mmol/L (3-11); BUN 9 mg/dL (9-23); Bilirubin, Total 1.6 mg/dL (0.2-1.2); CO2 25.8 mmol/L (20.0-31.0); Calcium 9.2 mg/dL (8.3-10.6); Chloride 104 mmol/L (98-107); Glucose 136 mg/dL (74-106); Potassium 4.1 mmol/L (3.5-5.1); Sodium 138 mmol/L (136-145); Total Protein 6.4 g/dL (5.7-8.2)
[2025-09-07 10:57] LABS: CA 19-9 3558 U/mL (<35)
[2025-09-08] MEDS: Normal Saline Flush 10 ML SYR IVP (12:13)
[2025-09-25 11:25] LABS: ALT 22 U/L (10-49); AST 26 U/L (<34); Albumin 4.0 g/dL (3.2-5.0); Alkaline Phosphatase 133 U/L (46-116); Anion Gap 7.2 mmol/L (3-11); BUN 11 mg/dL (9-23); Bilirubin, Total 1.6 mg/dL (0.2-1.2); CO2 26.8 mmol/L (20.0-31.0); Calcium 9.3 mg/dL (8.3-10.6); Chloride 105 mmol/L (98-107); Glucose 130 mg/dL (74-106); Potassium 4.2 mmol/L (3.5-5.1); Sodium 139 mmol/L (136-145); Total Protein 6.5 g/dL (5.7-8.2)
[2025-09-25 11:35] LABS: HCT 35.6 % (40.0-50.0); HGB 11.5 g/dL (13.5-17.5); MCH 28.8 pg (27.0-33.0); MCHC 32.3 % (32.0-36.0); MCV 89 fL (80-95); MPV 11.7 fL (8.0-11.0); Platelet Count 165 10^3/uL (130-400); RBC 3.99 10^6/uL (4.36-5.78); RDW 16.2 % (11.8-14.1); RDW-SD 52.8 fL
[2025-09-25 11:36] LABS: Immature Grans % 0.0 %; RBC Morphology Normal
[2025-09-25 11:40] LABS: WBC 1.93 10^3/uL (4.4-10.8)
[2025-09-25] MEDS: Normal Saline Flush 10 ML SYR IVP (15:02)
[2025-09-26 11:12] LABS: CA 19-9 2690 U/mL (<35)
== END 2025-09-26 23:59 | disposition home or self-care (01) ==
LOC: INF 00:07
PROVIDERS: PCP Physician Assistant; Visit Provider Internal Medicine Hematology & Oncology
DX: C25.0 Malignant neoplasm of head of pancreas (principal); Z45.2 Encounter for adjustment and management of vascular access device
CPT/HCPCS: 36591; 80053; 85025; 86301